=== PATIENT | female | born 1945 | race African-American/Black ===

== ENCOUNTER 2017-07-16 17:40 | Inpatient (IN) | payer MEDICARE ==
--- NOTE | 2017-07-16 18:22 | RAD ---
PORTABLE CHEST: Date: 07-16-17 Provided Clinical History: Weakness. FINDINGS: Comparison with 01-24-17. Cardiac and mediastinal silhouette is within normal limits. Lungs appear amina ar. No pleural fluid or pneumothorax apparent. IMPRESSION: No evidence for an acute cardiopulmonary process. POS: [facility]
[2017-07-16 18:49] LABS: #Eosinphils 0.2 thou/uL (0.0-0.7); #Lymphocytes 1.5 thou/uL (1.20-3.40); #Monocytes 0.9 thou/uL (0.11-0.59); #Neutrophils 10.7 thou/uL (1.40-6.50); %Basophils 0.3 % (0.0-1.0); %Eosinophils 1.5 % (0.0-10.0); %Lymphocytes 11.5 % (21.0-51.0); %Monocytes 6.8 % (0.0-10.0); %Neutrophils 79.9 % (42.0-75.0); Hemoglobin 11.1 g/dL (12.0-16.0); Mean Corpuscular Hemoglobin 27.9 pg (27.0-31.0); Mean Corpuscular Volume 89.8 fl (81.0-99.0); Mean Platelet Volume 7.3 fL (7.4-10.4); Platelet Count 318 thou/uL (130-400); RBC Distribution Width 14.7 % (11.5-14.5); White Blood Cell (WBC) Count 13.4 thou/uL (4.8-10.8)
[2017-07-16 19:08] LABS: ALT (SGPT) 22 U/L (8-55); AST (SGOT) 36 U/L (5-34); Albumin 3.4 g/dL (3.4-4.8); Alkaline Phosphatase 98 U/L (40-150); Anion Gap 20 mmol/L (10-20); BUN (Urea Nitrogen) 68 mg/dL (9.8-20.1); Bilirubin, Total 0.6 mg/dL (0.2-1.2); CK (CPK) 690 U/L (29-168); Calc. Creatinine Clearance 0 mL/min (70-130); Calcium 10.1 mg/dL (7.8-10.44); Carbon Dioxide 15 mmol/L (23-31); Chloride 105 mmol/L (98-107); Estimated GFR-MDRD 26; Globulin 5.3 g/dL (2.4-3.5); Glucose 102 mg/dL (80-115); Lipase 21 U/L (8-78); Potassium 4.4 mmol/L (3.5-5.1); Protein, Total 8.7 g/dL (6.0-8.3); Sodium 136 mmol/L (136-145)
[2017-07-16 19:44] LABS: Troponin I 0.017 ng/mL (< 0.028)
[2017-07-16 19:49] LABS: CKMB 15.5 ng/mL (0-6.6)
[2017-07-16] MEDS ORDERED: Piperacillin/Tazobactam 4.5 GM in Sodium Chloride 0.9% 100 ML IVPB SCH ×2 (21:00→23:15)
[2017-07-16 21:09] LABS: Bilirubin Negative (Negative); Blood, Urine Small (Negative); Clarity CLOUDY (Clear); Glucose, Urine (Dipstick) Negative (Negative); Leukocyte Large (Negative); Nitrite Positive (Negative); Protein, Urine (Dipstick) Negative (Neg-Trace); Specific Gravity, Urine 1.016 (1.002-1.036)
[2017-07-16 21:11] LABS: Bacteria/HPF 1+ HPF (None Seen); Hyaline Casts/LPF 4-6 HYALINE CAST LPF (0-3 Hyaline); Pathc Cast-AUWi Flag 1.62 (0-2.49); RBC/HPF 0-3 HPF (0-3)
[2017-07-16] MEDS ORDERED: Acetaminophen 325 MG TAB PO PRN (22:25)
--- NOTE | 2017-07-17 01:59 | HP ---
DATE OF ADMISSION: 07/16/2017 PRIMARY CARE PHYSICIAN: Dr. Monzon. CHIEF COMPLAINT: Weakness. HISTORY OF PRESENT ILLNESS: This is a 71-year-old female who was brought in by her family. They rep ort that over the last two weeks, the patient has gradually become weaker. Two weeks ago, she was ab le to walk with her four prong cane. Now, she is unable to walk. She reports extreme pain in her kn ees as well with swelling in the left lower extremity that is chronic. They denied chest pain, diaph oresis, or shortness of breath. She also reports decreased appetite. REVIEW OF SYSTEMS: The following complete review of systems was negative, unless otherwise mentioned in the HPI or below: Constitutional: Weight loss or gain, sense of well-being, ability to conduct usual activities, exercise tolerance. Skin/Breast: Rash, itching, changes in hair growth or loss, n ail changes, breast lumps, tenderness, swelling, nipple discharge. Eyes: Vision, double vision, tea ring, blind spots, pain. ENT/Mouth: Headaches (location, time of onset, duration, precipitating fac tors), vertigo, lightheadedness, injury. Vision, double vision, tearing, blind spots, pain, nose ble eding, colds, obstruction, discharge, dental difficulties, gingival bleeding, dentures, neck stiffnes s, pain, tenderness, masses in thyroid or other areas. Cardiovascular: Precordial pain, substernal distress, palpitations, syncope, dyspnea on exertion, orthopnea, nocturnal paroxysmal dyspnea, edema, cyanosis, hypertension, heart murmurs, varicosities, phlebitis, claudication. Respiratory: Pain, s hortness of breath, wheezing, stridor, cough, hemoptysis, fever or night sweats. Gastrointestinal: Poor appetite, dysphagia, indigestion, abdominal pain, heartburn, eructation, nausea, vomiting, hemat emesis, jaundice, constipation, or diarrhea, abnormal stools (kelsea-colored, tarry, bloody, greasy, fo ul smelling), flatulence, hemorrhoids, recent changes in bowel habits. Genitourinary: Urgency, freq uency, dysuria, nocturia, hematuria, polyuria, oliguria, unusual (or change in) color of urine, stone s, hesitancy, change in size of stream, dribbling, acute retention or incontinence, libido, potency. Musculoskeletal: Pain, swelling, redness or heat of muscles or joints, limitation of motion, muscul ar weakness, atrophy, cramps. Neurologic/Psychiatric: Convulsions, paralyzes, tremor, incoordinatio n, paresthesias, difficulties with memory of speech, sensory or motor disturbances, or muscular coord ination (ataxia, tremor), emotional problems, anxiety, depression, previous psychiatric care, unusual perceptions, hallucinations. Allergy/Immunologic: Skin rash, anemia, bleeding tendency, polydipsia , polyuria, intolerance to heat or cold. PAST MEDICAL HISTORY: Significant for type 2 diabetes, hypertension, congestive heart failure, gout, obesity. PAST SURGICAL HISTORY: Tubal ligation, left breast biopsy. PSYCHIATRIC HISTORY: No previous psychiatric history. SOCIAL HISTORY: Denies alcohol use or illicit drug use. No smoking. FAMILY HISTORY: Reviewed. Noncontributory to this case. HOME MEDICATIONS: 1. Lasix 20 mg b.i.d. 2. Allopurinol 100 mg t.i.d. 3. Ferrous sulfate 325 mg b.i.d. 4. Carvedilol 12.5 mg b.i.d. 5. Amlodipine 10 mg daily. 6. Fish oil tab 100 mg daily. ALLERGIES: No known drug allergies. PHYSICAL EXAMINATION: VITAL SIGNS: Vital statistics, rectal temperature of 95.2, blood pressure 138/60, pulse 86, respirat ions 16, satting 98% on room air. GENERAL: She appears lethargic, but she is oriented to person, place, and time. HEAD: Normocephalic, atraumatic. EYES: PERRL. Extraocular muscles intact. ENT: Nose exam normal. External mouth exam normal. Mucous membranes dry. NECK: Trachea midline, normal range of motion, supple. CHEST: Diminished effort, but no rales, no wheezes auscultated. CARDIOVASCULAR: Regular rate and rhythm. ABDOMEN: Morbidly obese, nontender, no rebound or guarding. EXTREMITIES: There is a large stage I ulcer to the left lower extremity, otherwise 3+ edema bilatera lly. Venous stasis changes. NEUROLOGIC: Once again, patient is lethargic, but appears to be alert and oriented x3. LABORATORY AND DIAGNOSTIC DATA: CBC shows a white count of 13.4, hemoglobin 11.1, hematocrit 35.9, p latelets 318,000. There are 80% neutrophils. Portable chest x-ray, there is no evidence for acute c ardiopulmonary disease. CMP shows sodium of 136, potassium 4.4, chloride 105, CO2 of 15, BUN 68, cre atinine 2.26, AST 36, ALT 22, albumin 3.4. CPK of 690, CK-MB 15.5, troponin 0.017, lipase 21. Urina lysis was yellow, cloudy, large amount of leukocytes, large amount of nitrites, 1+ bacteria with 4-6 squamous cells. ASSESSMENT AND PLAN: 1. Increased weakness. 2. Acute kidney injury. 3. Cellulitis. 4. Elevated creatine phosphokinase. 5. Possible viral syndrome. PLAN: The patient will be admitted to telemetry. The patient will be placed on IV fluoroquinolones to cover possible urinary tract infection. The patient may also have a viral syndrome. We will gent ly hydrate her and she appears to be somewhat volume depleted. We will do DVT prophylaxis with Loven ox, we will maintain an eye on the patient's creatinine to see if it increases more and if Lovenox wi ll become contraindicated.
[2017-07-17 04:46] LABS: #Eosinphils 0.3 thou/uL (0.0-0.7); #Lymphocytes 1.5 thou/uL (1.20-3.40); #Neutrophils 7.9 thou/uL (1.40-6.50); %Basophils 0.2 % (0.0-1.0); %Eosinophils 2.4 % (0.0-10.0); %Lymphocytes 14.3 % (21.0-51.0); %Monocytes 9.1 % (0.0-10.0); %Neutrophils 73.9 % (42.0-75.0); Hemoglobin 9.2 g/dL (12.0-16.0); Mean Corpuscular HGB CONC 31.2 g/dL (32.0-36.0); Mean Corpuscular Hemoglobin 28.4 pg (27.0-31.0); Mean Corpuscular Volume 91.2 fl (81.0-99.0); Mean Platelet Volume 7.2 fL (7.4-10.4); Platelet Count 285 thou/uL (130-400); RBC Distribution Width 14.5 % (11.5-14.5); Red Blood Cell (RBC) Count 3.22 mill/uL (4.20-5.40); White Blood Cell (WBC) Count 10.7 thou/uL (4.8-10.8)
[2017-07-17 04:51] LABS: Anion Gap 16 mmol/L (10-20); BUN (Urea Nitrogen) 64 mg/dL (9.8-20.1); Calc. Creatinine Clearance 0 mL/min (70-130); Calcium 9.3 mg/dL (7.8-10.44); Carbon Dioxide 19 mmol/L (23-31); Chloride 108 mmol/L (98-107); Estimated GFR-MDRD 28; Glucose 72 mg/dL (80-115); Potassium 3.7 mmol/L (3.5-5.1); Sodium 139 mmol/L (136-145)
[2017-07-17] MEDS ORDERED: Levofloxacin 500 mg/D5W 100 ml Premix Bag ONE (09:33)
--- NOTE | 2017-07-17 12:40 | PDOC.PN ---
- Subjective Encounter Start Date: 07/17/17 Encounter Start Time: 10:30 -: old records requested/rev Pt seen and examined, chart reviewed in its entirety, this is my first visit with this patient. No F/C since admit, no n/v, no acute events. - Objective MAR Reviewed: Yes Result Diagrams: 07/17/17 04:16 07/17/17 04:16 Radiology Reviewed by me: Yes EKG Reviewed by me: Yes Phys Exam - Physical Examination Constitutional: NAD HEENT: PERRLA, sclera anicteric, oral pharynx no lesions mucous membranes dry Neck: no nodes, no JVD, supple, full ROM Respiratory: no wheezing, no rhonchi, clear to auscultation bilateral Cardiovascular: RRR, no significant murmur Gastrointestinal: soft, non-tender, no distention, positive bowel sounds Musculoskeletal: pulses present, edema present Neurological: non-focal, moves all 4 limbs Lymphatic: no nodes Psychiatric: normal affect, A&O x 3 Skin: normal turgor Deviation from normal: L>R LE edema, circumferential venous ulcer present, covered with slough. -: no redness, no heat, no evidence of infection presently Dx/Plan (1) Venous insufficiency of both lower extremities Code(s): I87.2 - VENOUS INSUFFICIENCY (CHRONIC) (PERIPHERAL) Status: Acute Comment: BLE, with LLE venous ulcer, large. needs UNNA boot termite control representative and aggresive wound management. (2) Venous ulcer of left leg Code(s): I83.029 - VARICOSE VEINS OF LEFT LOWER EXTREMITY W ULCER OF UNSP SITE Status: Acute Comment: as above. no evidence currently of infection. needs compression and chronic wound care. unsure of arterial supply to leg presently. (3) UTI (urinary tract infection) Status: Acute Qualifiers: Urinary tract infection type: acute cystitis Hematuria presence: without hematuria Qualified Code(s): N30.00 - Acute cystitis without hematuria Comment: on levoflox. [facility], follow up on culture (4) Acute renal failure superimposed on stage 3 chronic kidney disease Code(s): N17.9 - ACUTE KIDNEY FAILURE, UNSPECIFIED; N18.3 - CHRONIC KIDNEY DISEASE, STAGE 3 (MODERATE) Status: Acute Qualifiers: Acute renal failure type: unspecified Qualified Code(s): N17.9 - Acute kidney failure, unspecified; N18.3 - Chronic kidney disease, stage 3 (moderate) ; N18.3 - Chronic kidney disease, stage 3 (moderate) Comment: Cr dwon to 2.12 today. CCM (5) Dehydration Code(s): E86.0 - DEHYDRATION Status: Acute (6) Weakness Code(s): R53.1 - WEAKNESS Status: Acute Comment: likely due to other comorbidities. PT/OT requested (7) CKD (chronic kidney disease), stage III Status: Chronic (8) Chronic diastolic (congestive) heart failure Code(s): I50.32 - CHRONIC DIASTOLIC (CONGESTIVE) HEART FAILURE Status: Chronic Comment: EF 50-55% (9) DM2 (diabetes mellitus, type 2) Status: Chronic Qualifiers: Diabetes mellitus complication status: with circulatory complication Diabetes mellitus complication detail: with other circulatory complications Diabetes mellitus detention insulin use: without detention use Qualified Code( s): E11.59 - Type 2 diabetes mellitus with other circulatory complications (10) Morbid obesity Code(s): E66.01 - MORBID (SEVERE) OBESITY DUE TO EXCESS CALORIES Status: Chronic - Plan cont current plan of care, continue antibiotics, PT/OT * .
[2017-07-17 17:56] VITALS: BMI 42.3
[2017-07-17] MEDS: Sodium Chloride 0.9% 1,000 ML IV SCH ×2 (19:18→21:01)
[2017-07-17] MEDS: Carvedilol 6.25 MG TAB PO SCH ×2 (19:19→21:01)
[2017-07-17] MEDS: Amlodipine 10 MG TAB PO SCH (19:19)
[2017-07-17] MEDS: Aspirin 325 mg Enteric Coated Tablet PO SCH (19:19)
[2017-07-18 05:51] LABS: #Eosinphils 0.3 thou/uL (0.0-0.7); #Lymphocytes 1.6 thou/uL (1.20-3.40); #Monocytes 0.8 thou/uL (0.11-0.59); #Neutrophils 6.9 thou/uL (1.40-6.50); %Basophils 0.3 % (0.0-1.0); %Eosinophils 2.9 % (0.0-10.0); %Monocytes 7.9 % (0.0-10.0); %Neutrophils 71.9 % (42.0-75.0); Hemoglobin 8.6 g/dL (12.0-16.0); Mean Corpuscular HGB CONC 30.1 g/dL (32.0-36.0); Mean Corpuscular Volume 93.1 fl (81.0-99.0); Platelet Count 277 thou/uL (130-400); RBC Distribution Width 14.7 % (11.5-14.5); Red Blood Cell (RBC) Count 3.06 mill/uL (4.20-5.40); White Blood Cell (WBC) Count 9.6 thou/uL (4.8-10.8)
[2017-07-18 06:22] LABS: Anion Gap 13 mmol/L (10-20); BUN (Urea Nitrogen) 51 mg/dL (9.8-20.1); Calc. Creatinine Clearance 55 mL/min (70-130); Calcium 8.7 mg/dL (7.8-10.44); Carbon Dioxide 16 mmol/L (23-31); Chloride 114 mmol/L (98-107); Estimated GFR-MDRD 34; Glucose 74 mg/dL (80-115); Magnesium 2.2 mg/dL (1.6-2.6); Potassium 4.3 mmol/L (3.5-5.1); Sodium 139 mmol/L (136-145)
[2017-07-18] MEDS: Aspirin 325 mg Enteric Coated Tablet PO SCH (08:16)
[2017-07-18] MEDS: Amlodipine 10 MG TAB PO SCH (08:16)
[2017-07-18] MEDS: Carvedilol 6.25 MG TAB PO SCH ×2 (08:17→17:34)
[2017-07-18] MEDS: Sodium Chloride 0.9% 1,000 ML IV SCH (13:06)
--- NOTE | 2017-07-18 15:11 | PDOC.PN ---
- Subjective Encounter Start Date: 07/18/17 Encounter Start Time: 10:30 PT more awake today. Feeling better Denies f/C, no n/V/D/C, no pain to legs, no abd pain, no CP or SOB 10 point ros performed and neg for all systems except as per HPI - Objective MAR Reviewed: Yes Vital Signs & Weight: Vital Signs (12 hours) Temp Pulse Resp BP BP Pulse Ox 07/18/17 12:20 99.1 F 76 18 115/66 98 07/18/17 08:17 129/60 07/18/17 08:16 78 129/60 07/18/17 08:00 99.3 F 78 16 07/18/17 07:54 99.3 F 78 16 129/60 96 07/18/17 04:00 99.2 F 86 18 113/62 98 Weight Weight 262 lb I&O: 07/17/17 07/18/17 07/19/17 06:59 06:59 06:59 Intake Total 880 Balance 880 Result Diagrams: 07/18/17 05:26 07/18/17 05:26 Additional Labs: Accuchecks 07/18/17 07/18/17 07/17/17 12:07 04:21 20:51 POC Glucose 118 H 114 H 116 H Phys Exam - Physical Examination Constitutional: NAD HEENT: PERRLA, moist MMs, sclera anicteric, oral pharynx no lesions Neck: no nodes, no JVD, supple, full ROM Respiratory: no wheezing, no rales, no rhonchi, clear to auscultation bilateral Cardiovascular: RRR, no significant murmur, no rub Gastrointestinal: soft, non-tender, no distention, positive bowel sounds Musculoskeletal: edema present Neurological: non-focal, normal sensation, moves all 4 limbs globally weak Lymphatic: no nodes Psychiatric: normal affect, A&O x 3 Deviation from normal: large LLE circumferential venous ulcer stable Dx/Plan (1) Venous insufficiency of both lower extremities Code(s): I87.2 - VENOUS INSUFFICIENCY (CHRONIC) (PERIPHERAL) Status: Acute Comment: BLE, with LLE venous ulcer, large. needs UNNA boot custodial and aggresive wound management. (2) Venous ulcer of left leg Code(s): I83.029 - VARICOSE VEINS OF LEFT LOWER EXTREMITY W ULCER OF UNSP SITE Status: Acute Comment: as above. no evidence currently of infection. needs compression and chronic wound care. unsure of arterial supply to leg presently. (3) UTI (urinary tract infection) Status: Acute Qualifiers: Urinary tract infection type: acute cystitis Hematuria presence: without hematuria Qualified Code(s): N30.00 - Acute cystitis without hematuria Comment: on levoflox. Cx with E coli, vicente susceptible. Labs normal, more awake. (4) Acute renal failure superimposed on stage 3 chronic kidney disease Code(s): N17.9 - ACUTE KIDNEY FAILURE, UNSPECIFIED; N18.3 - CHRONIC KIDNEY DISEASE, STAGE 3 (MODERATE) Status: Acute Qualifiers: Acute renal failure type: unspecified Qualified Code(s): N17.9 - Acute kidney failure, unspecified; N18.3 - Chronic kidney disease, stage 3 (moderate) ; N18.3 - Chronic kidney disease, stage 3 (moderate) Comment: Cr down from 2.12 to 1.79 today. CCM (5) Dehydration Code(s): E86.0 - DEHYDRATION Status: Acute Comment: Hgb form 11.1 to 9.2 to 8.6. No signs of blood loss. Follow (6) Weakness Code(s): R53.1 - WEAKNESS Status: Acute Comment: likely due to other comorbidities. PT/OT requested (7) CKD (chronic kidney disease), stage III Status: Chronic (8) Chronic diastolic (congestive) heart failure Code(s): I50.32 - CHRONIC DIASTOLIC (CONGESTIVE) HEART FAILURE Status: Chronic Comment: EF 50-55% (9) DM2 (diabetes mellitus, type 2) Status: Chronic Qualifiers: Diabetes mellitus complication status: with circulatory complication Diabetes mellitus complication detail: with other circulatory complications Diabetes mellitus buttermaker continuous churn insulin use: without custodial use Qualified Code( s): E11.59 - Type 2 diabetes mellitus with other circulatory complications (10) Morbid obesity Code(s): E66.01 - MORBID (SEVERE) OBESITY DUE TO EXCESS CALORIES Status: Chronic - Plan * .
[2017-07-18] MEDS: Allopurinol 100 MG TAB PO SCH (20:21)
[2017-07-19 05:33] LABS: #Eosinphils 0.2 thou/uL (0.0-0.7); #Lymphocytes 1.9 thou/uL (1.20-3.40); #Monocytes 0.7 thou/uL (0.11-0.59); #Neutrophils 4.5 thou/uL (1.40-6.50); %Basophils 0.5 % (0.0-1.0); %Eosinophils 2.9 % (0.0-10.0); %Lymphocytes 26.2 % (21.0-51.0); %Monocytes 9.5 % (0.0-10.0); %Neutrophils 60.9 % (42.0-75.0); Hemoglobin 8.3 g/dL (12.0-16.0); Mean Corpuscular Hemoglobin 28.4 pg (27.0-31.0); Mean Corpuscular Volume 91.7 fl (81.0-99.0); Mean Platelet Volume 6.8 fL (7.4-10.4); Platelet Count 256 thou/uL (130-400); RBC Distribution Width 14.6 % (11.5-14.5); Red Blood Cell (RBC) Count 2.91 mill/uL (4.20-5.40); White Blood Cell (WBC) Count 7.3 thou/uL (4.8-10.8)
[2017-07-19 05:57] LABS: Anion Gap 9 mmol/L (10-20); BUN (Urea Nitrogen) 43 mg/dL (9.8-20.1); Calc. Creatinine Clearance 56 mL/min (70-130); Calcium 8.5 mg/dL (7.8-10.44); Carbon Dioxide 22 mmol/L (23-31); Chloride 112 mmol/L (98-107); Estimated GFR-MDRD 35; Glucose 87 mg/dL (80-115); Magnesium 1.9 mg/dL (1.6-2.6); Potassium 4.2 mmol/L (3.5-5.1); Sodium 139 mmol/L (136-145)
[2017-07-19] MEDS: Ferrous Sulfate 325 MG TAB PO SCH (08:02)
[2017-07-19] MEDS: Allopurinol 100 MG TAB PO SCH ×3 (08:02→20:22)
[2017-07-19] MEDS: Carvedilol 6.25 MG TAB PO SCH ×2 (08:03→16:29)
[2017-07-19] MEDS: Aspirin 325 mg Enteric Coated Tablet PO SCH (08:04)
[2017-07-19] MEDS: Amlodipine 10 MG TAB PO SCH (08:04)
[2017-07-19] MEDS: Sodium Chloride 0.9% 1,000 ML IV SCH (09:49)
--- NOTE | 2017-07-19 12:18 | PDOC.PN ---
- Subjective Encounter Start Date: 07/19/17 Encounter Start Time: 11:25 Pt awake and alert, lying in bed, no pain, no F/c,no N/V/d/c, no CP or sOB, no acute events. Wound care to see pt again soon. Pt agreeable to SNF on discharge, awaiting Pt/OT evals. 10 point ROS performed and neg for all systems except as per HPI. Tolerating Abx, transition to po today - Objective MAR Reviewed: Yes Vital Signs & Weight: Vital Signs (12 hours) Temp Pulse Resp BP BP Pulse Ox 07/19/17 09:04 98.9 F 79 20 119/74 98 07/19/17 08:49 98.9 F 79 20 119/74 98 07/19/17 08:00 98.9 F 79 20 07/19/17 04:00 98.5 F 76 16 120/68 95 Weight Admit Weight 262 lb Weight 262 lb I&O: 07/18/17 07/19/17 07/20/17 06:59 06:59 06:59 Intake Total 880 1810 Balance 880 1810 Result Diagrams: 07/19/17 05:11 07/19/17 05:11 Additional Labs: Accuchecks 07/19/17 07/18/17 07/18/17 05:06 20:56 16:24 POC Glucose 93 156 H 114 H 07/18/17 12:07 POC Glucose 118 H Phys Exam - Physical Examination HEENT: PERRLA, moist MMs, sclera anicteric, oral pharynx no lesions Neck: no nodes, no JVD, supple, full ROM Respiratory: no wheezing, no rales, no rhonchi, clear to auscultation bilateral Cardiovascular: RRR, no significant murmur, no rub Gastrointestinal: soft, non-tender, no distention, positive bowel sounds Musculoskeletal: pulses present, edema present improved edena bilaterally Neurological: non-focal, normal sensation, moves all 4 limbs Lymphatic: no nodes Psychiatric: normal affect, A&O x 3 Skin: no rash, normal turgor, cap refill <2 seconds Deviation from normal: wounds stable Dx/Plan (1) Venous insufficiency of both lower extremities Code(s): I87.2 - VENOUS INSUFFICIENCY (CHRONIC) (PERIPHERAL) Status: Acute Comment: BLE, with LLE venous ulcer, large. needs UNNA boot tax processor and aggresive wound management. (2) Venous ulcer of left leg Code(s): I83.029 - VARICOSE VEINS OF LEFT LOWER EXTREMITY W ULCER OF UNSP SITE Status: Acute Comment: as above. no evidence currently of infection. needs compression and chronic wound care. unsure of arterial supply to leg presently. (3) UTI (urinary tract infection) Status: Acute Qualifiers: Urinary tract infection type: acute cystitis Hematuria presence: without hematuria Qualified Code(s): N30.00 - Acute cystitis without hematuria Comment: on levoflox. Cx with E coli, vicente susceptible. Labs normal, more awake. (4) Acute renal failure superimposed on stage 3 chronic kidney disease Code(s): N17.9 - ACUTE KIDNEY FAILURE, UNSPECIFIED; N18.3 - CHRONIC KIDNEY DISEASE, STAGE 3 (MODERATE) Status: Acute Qualifiers: Acute renal failure type: unspecified Qualified Code(s): N17.9 - Acute kidney failure, unspecified; N18.3 - Chronic kidney disease, stage 3 (moderate) ; N18.3 - Chronic kidney disease, stage 3 (moderate) Comment: Cr down from 2.12 to 1.79 today. CCM (5) Dehydration Code(s): E86.0 - DEHYDRATION Status: Acute Comment: Hgb form 11.1 to 9.2 to 8.6. No signs of blood loss. Follow (6) Weakness Code(s): R53.1 - WEAKNESS Status: Acute Comment: physical deconditioning. PT/OT requested. to SNF for wound care and PT/OT on discharge (7) CKD (chronic kidney disease), stage III Status: Chronic (8) Chronic diastolic (congestive) heart failure Code(s): I50.32 - CHRONIC DIASTOLIC (CONGESTIVE) HEART FAILURE Status: Chronic Comment: EF 50-55% (9) DM2 (diabetes mellitus, type 2) Status: Chronic Qualifiers: Diabetes mellitus complication status: with circulatory complication Diabetes mellitus complication detail: with other circulatory complications Diabetes mellitus jail insulin use: without tax processor use Qualified Code( s): E11.59 - Type 2 diabetes mellitus with other circulatory complications (10) Morbid obesity Code(s): E66.01 - MORBID (SEVERE) OBESITY DUE TO EXCESS CALORIES Status: Chronic - Plan cont current plan of care, continue antibiotics, PT/OT, social studies department chair * . anticipate discharge tomorrow
[2017-07-19] MEDS: Ciprofloxacin 500 MG TAB PO SCH (20:23)
[2017-07-20 05:47] LABS: #Basophils 0.1 thou/uL (0.0-0.2); #Eosinphils 0.3 thou/uL (0.0-0.7); #Lymphocytes 1.8 thou/uL (1.20-3.40); #Monocytes 0.6 thou/uL (0.11-0.59); #Neutrophils 4.4 thou/uL (1.40-6.50); %Basophils 0.7 % (0.0-1.0); %Eosinophils 4.6 % (0.0-10.0); %Lymphocytes 25.3 % (21.0-51.0); %Monocytes 7.8 % (0.0-10.0); %Neutrophils 61.7 % (42.0-75.0); Hemoglobin 8.5 g/dL (12.0-16.0); Mean Corpuscular HGB CONC 30.6 g/dL (32.0-36.0); Mean Corpuscular Hemoglobin 28.2 pg (27.0-31.0); Mean Corpuscular Volume 92.2 fl (81.0-99.0); Mean Platelet Volume 6.8 fL (7.4-10.4); Platelet Count 251 thou/uL (130-400); RBC Distribution Width 14.6 % (11.5-14.5); Red Blood Cell (RBC) Count 3.01 mill/uL (4.20-5.40); White Blood Cell (WBC) Count 7.2 thou/uL (4.8-10.8)
[2017-07-20 06:29] LABS: Anion Gap 12 mmol/L (10-20); BUN (Urea Nitrogen) 33 mg/dL (9.8-20.1); Calc. Creatinine Clearance 67 mL/min (70-130); Calcium 8.7 mg/dL (7.8-10.44); Carbon Dioxide 18 mmol/L (23-31); Chloride 114 mmol/L (98-107); Estimated GFR-MDRD 43; Glucose 85 mg/dL (80-115); Magnesium 1.8 mg/dL (1.6-2.6); Potassium 4.4 mmol/L (3.5-5.1); Sodium 140 mmol/L (136-145)
[2017-07-20] MEDS: Sodium Chloride 0.9% 1,000 ML IV SCH (07:59)
[2017-07-20] MEDS: Carvedilol 6.25 MG TAB PO SCH (08:00)
[2017-07-20] MEDS: Ciprofloxacin 500 MG TAB PO SCH (08:00)
[2017-07-20] MEDS: Aspirin 325 mg Enteric Coated Tablet PO SCH (08:00)
[2017-07-20] MEDS: Ferrous Sulfate 325 MG TAB PO SCH (08:00)
[2017-07-20] MEDS: Allopurinol 100 MG TAB PO SCH (08:00)
[2017-07-20] MEDS: Amlodipine 10 MG TAB PO SCH (08:00)
[2017-07-20 08:40] VITALS: BP 110/66; TEMP 98.7
--- NOTE | 2017-07-20 14:49 | DIS ---
DATE OF ADMISSION: 07/16/2017 DATE OF DISCHARGE: 07/20/2017 PRIMARY CARE PHYSICIAN: Dr. Kendra Monzon DISCHARGE DIAGNOSES: 1. Escherichia coli urinary tract infection. 2. Sepsis. 3. Chronic diastolic congestive heart failure without acute exacerbation. 4. Chronic kidney disease stage 3. 5. Dehydration. 6. Acute kidney injury on top of chronic kidney disease stage 3. 7. Diabetes mellitus type 2. 8. Severe obesity. 9. Chronic venous insufficiency. 10. Venous ulcer of her left lower leg. CONSULTATIONS: None. PROCEDURES: None. HISTORY OF PRESENT ILLNESS: Ms. Olivas is a 71-year-old severely obese female with the above history who presented in the emergency department for evaluation on 07/16/2017 for feeling weak. She was seen and evaluated in the ER. She was found to have a white count of 13.4 with 80% n eutrophils. She had a negative chest x-ray, creatinine above her baseline 2.26, rectal temperature 9 5.2 and was satting 98% on room air. We were called for initially cellulitis of the lower extremity. HOSPITAL COURSE: The patient was seen and examined by Dr. Sebastien Luevano. She was started on broad sp ectrum antibiotics for possible cellulitis and for UTI. Overnight to 07/16/2017 to 07/17/2017, she w as doing better. She was somnolent, but arousable. Evaluation of her lower extremity did not reveal any increased warmth, drainage or tenderness and it looked uninfected. Urine was growing out a gram negative le later found to be E. coli, she was continued on Rocephin. She was given IV fluids. By 07/18/2017, she was awake, alert, and feeling back to her baseline. E. coli was vicente susceptible s o she was narrowed to oral Cipro. White blood cell count had normalized and creatinine continued to normalized. On 07/19/2017, her creatinine had improved down to 1.74. She was doing better exercise with physical therapy, but was still too weak to really get up and ambulate. She was getting wound care on her lo wer extremity from Wound Care team. Today, her creatinine is back down to baseline 1.47. She is afebrile. Labs are normal. Strength is improving. She was approved to go to rehabilitation at [facility] and she was transferred there in stable condition. PHYSICAL EXAMINATION: The patient was seen and examined on the day of discharge. Discharge plan and disposition were discussed with the patient face to face at the bedside. DISCHARGE MEDICATIONS: 1. Cipro 500 mg p.o. b.i.d. for 4 more days. 2. Tylenol 650 mg p.o. q.4h. p.r.n. pain. 3. Allopurinol 100 mg p.o. t.i.d. 4. Amlodipine 10 mg daily. 5. Aspirin 325 mg daily. 6. Coreg 12.5 mg p.o. b.i.d. 7. Iron sulfate 325 mg daily. 8. Fish oil 1000 mg b.i.d. 9. Lasix 20 mg b.i.d. FOLLOWUP APPOINTMENTS: Dr. Monzon in 1-2 weeks. DISCHARGE CONDITION: Good. DISPOSITION: To be discharged to [facility]. DISCHARGE ACTIVITIES: As tolerated. PT, OT, and Wound Care has been ordered at the intermediate facility.
--- NOTE | 2017-07-26 15:59 | PQF ---
SENTHIL GARZON ERIC [id number] [facility] [id number] CLINICAL DOCUMENTATION CLARIFICATION FORM: POST DISCHARGE SENTHIL GARZON [id number] [facility] PLEASE DOCUMENT YOUR RESPONSE BELOW PLEASE FAX RESPONSE BACK TO [phone] YOUR INPUT IS NEEDED TO CORRECTLY CODE A DIAGNOSIS FOR YOUR PATIENT. DATE: 07/26/17 ATTN: DR GOTTI Please exercise your independent, professional judgment in responding to the clarification form. Clinical indicators are provided on the bottom of this form for your review Please check appropriate box(s) to clarify if the following diagnosis has been ruled in our ruled out: Sepsis (CDI/Coding list diagnosis here) [x ] Ruled in diagnosis [ ] Continue to treat [ x ] Resolved [ ] Ruled out diagnosis [ ] Cannot rule out diagnosis [ ] Other diagnosis [ ] Unable to determine In addition, please specify: Present on Admission (POA): [ x ] Yes [ ] No [ ] Unable to determine For continuity of documentation, please document condition throughout progress notes and discharge summary. Thank You. Sepsis was documented in the ER report and on discharge summary, but no mention of Sepsis in the progress notes. (This form is maintained as a part of the permanent medical record) 2014 [employer] All Rights Reserved Nimo [email or web address] [phone] THIS WAS LISTED IN THE DISCHARGE DIAGNOSES ON THE D/D SUMMARY 07/20/2017 [facility]
--- NOTE | 2017-07-26 16:03 | PQF ---
SENTHIL GARZON SARAH [id number] [facility] [id number] CLINICAL DOCUMENTATION CLARIFICATION FORM: POST DISCHARGE DATE: 07/26/17 ATTN: DR GOTTI Please exercise your independent, professional judgment in responding to the clarification form. Clinical indicators are provided on the bottom of this form for your review WOUND CARE STATES PRESSURE ULCER STAGE III RIGHT THIGH, STAGE III PRESSURE ULCER TO SACRUM Please check appropriate box(s): _x I (concur) with the Wound Care findings as stated below. [ ] Pressure Ulcer: (Stage I: Erythema; Stage II: Partial thickness; Stage III : Full thickness; Stage IV: Necrosis to muscle/bone) [ ] Location: POA: [ ] Yes [ ] No [ ] Unable to determine Stage (I to IV): (Left Right Bilateral N/A ) [ ] Location: POA: [ ] Yes [ ] No [ ] Unable to determine Stage (I to IV): (Left Right Bilateral N/A ) [ ] Location: POA: [ ] Yes [ ] No [ ] Unable to determine Stage (I to IV): (Left Right Bilateral N/A ) [ ] Gangrene present [ ] Yes [ ] ischemic gangrene [ ] gas gangrene [ x ] No [ ] No pressure ulcer diagnosis [ ] Deep tissue injury [ ] Other diagnosis [ ] Unable to determine In addition, please specify: Present on Admission (POA): [ x ] Yes [ ] No [ ] Unable to determine For continuity of documentation, please document condition throughout progress notes and discharge summary. Thank You. CLINICAL INDICATORS - SIGNS / SYMPTOMS / LABS Pre-ulcer skin changes limited to persistent focal edema (Stage 1) Abrasion, blister, partial thickness skin loss involving epidermis and/or dermis (Stage 2) Full thickness skin loss involving damage or necrosis of SQ tissue. (Stage 3) Necrosis of soft tissue through to underlying muscle, tendon, or bone. (Stage 4) Purple or maroon discolored skin or blood filled blister MTDD
== END 2017-07-20 13:32 | DRG 871 ==
LOC: ERS 17:40 → ERHOLD 21:00 → T4-B 07-17 17:30
PROVIDERS: ADMIT Internal Medicine Addiction Medicine; ATTEND Internal Medicine Addiction Medicine
DX: A41.9 Sepsis, unspecified organism (principal); L89.893 Pressure ulcer of other site, stage 3; N17.9 Acute kidney failure, unspecified; L89.152 Pressure ulcer of sacral region, stage 2; I13.0 Hypertensive heart and chronic kidney disease with heart failure and stage 1 through stage 4 chronic kidney disease, or unspecified chronic kidney disease; E11.22 Type 2 diabetes mellitus with diabetic chronic kidney disease; I50.32 Chronic diastolic (congestive) heart failure; L03.115 Cellulitis of right lower limb; Z68.41 Body mass index [BMI] 40.0-44.9, adult; L03.116 Cellulitis of left lower limb; I83.228 Varicose veins of left lower extremity with both ulcer of other part of lower extremity and inflammation; L97.829 Non-pressure chronic ulcer of other part of left lower leg with unspecified severity; N30.00 Acute cystitis without hematuria; E66.01 Morbid (severe) obesity due to excess calories; M10.9 Gout, unspecified; B96.20 Unspecified Escherichia coli [E. coli] as the cause of diseases classified elsewhere; N18.3 Chronic kidney disease, stage 3 (moderate); E86.0 Dehydration; T68.XXXA Hypothermia, initial encounter
CPT/HCPCS: 36415; 36416; 71010; 80048; 80053; 81003; 81015; 82553; 83605; 83690; 83735; 84484; 85025; 87040; 87077; 87086; 87186; 93005; 94760; 96361; 96365; 96367; A4216; A4353; G8978-GP-CM; G8979-GP-CK; J1956; J2543; J3370; J7050

== ENCOUNTER 2017-08-15 10:26 | Outpatient (CLI) | payer MEDICARE ==
[2017-08-15] MEDS ORDERED: Lidocaine 2% Jelly 5 ML TUBE ONE (17:10)
--- NOTE | 2017-08-15 19:42 | HP ---
DATE OF SERVICE: 08/15/2017 HISTORY OF PRESENT ILLNESS: Ms. Cinthya Olivas is a very pleasant 71-year-old, accompanied by her son , who [facility] for evaluation of multiple venous ulcerations of the right lower l eg. The patient also has a pressure ulceration of the right buttock and a pressure ulceration of the coccygeal region. The patient is presently receiving dressing changes with the assistance of [facility]. The patient states that all of her wounds are improving with the dressing changes she is rece iving by [facility]. The patient was recently discharged from [facility]. The patient states that for her wounds she was also receiving dressing changes at [facility] prior to her discharge to home . PAST MEDICAL HISTORY: 1. Diabetes mellitus. 2. Hypertension. 3. Anemia. 4. Chronic kidney disease stage 3. 5. Gout. 6. Gastroesophageal reflux disease. 7. History of rhabdomyolysis. 8. Diastolic congestive heart failure. 9. Peripheral vascular disease. PAST SURGICAL HISTORY: 1. Right breast biopsy. 2. Bilateral tubal ligation. 3. Bilateral cataract surgery. MEDICATIONS: 1. Allopurinol. 2. Amlodipine. 3. Aspirin. 4. Coreg. 5. Iron. 6. Fish oil. 7. Lasix. 8. Multivitamin. ALLERGIES: No known diagnosed allergies. SOCIAL HISTORY: Negative for tobacco or ETOH use. FAMILY HISTORY: Significant for diabetes mellitus. The patient states that her sister, aunt, and un amina were diagnosed with diabetes mellitus. Family history is also significant for coronary artery di sease. The patient states that 2 brothers were diagnosed with coronary artery disease. PHYSICAL EXAMINATION: VITAL SIGNS: Temperature 97.4, pulse 80, respirations 19, blood pressure 137/65. Accu-Chek 93. GENERAL: A 71-year-old female lying on stretcher in examination room, in no acute distress. HEENT: Normocephalic, atraumatic. NECK: No nuchal rigidity. CHEST: Clear to auscultation. CARDIAC: Regular rate and rhythm. ABDOMEN: Soft. EXTREMITIES: Multiple venous ulcerations of the right lower leg are present. These ulcerations are granulating. No purulent drainage is associated with any of the wounds. No erythema of the skin earline rounding any of the wounds is present. No maceration of the skin of the periwound of any of the woun ds is noted. A dorsalis pedis pulse is easily palpable on the right. Edema of the right lower leg i s present on exam today. BACK: A pressure ulceration of the right buttock is present. A pressure ulceration of the coccygeal region is also present. Granulation tissue is present within the margins of each wound. Nonviable tissue present within the margins of each wound was debrided with an excisional full-thickness debrid ement with the use of a curet. No purulent drainage is associated with either wound. No erythema of the skin surrounding either wound is present. No maceration of the skin of the periwound of either wound is noted. ASSESSMENT AND PLAN: 1. Chronic venous hypertension with ulcers. Silvercel, Webril, and 3M Coban two-layer compression s ystem will be applied to the ulcerations of the right lower leg today. Orders will be transmitted to Home Health for dressing changes at the present frequency after cleansing and irrigation. 2. Pressure ulcerations of right buttock and coccygeal region. Silvercel and Mepilex border will be applied to each ulceration today. Orders will also be transmitted to Home Health for dressing martinez es at the present frequency after cleansing and irrigation. I will see Ms. Olivas again in two weeks . 3. Diabetes mellitus. The patient's Accu-Chek in clinic today is 93. The patient has been told vinay t for optimal wound healing, her blood glucoses should remain below 150. 4. Hypertension. 5. Anemia. 6. Chronic kidney disease stage 3. 7. Gout. 8. Gastroesophageal reflux disease. 9. History of rhabdomyolysis. 10. Diastolic congestive heart failure. 11. Peripheral vascular disease.
== END 2017-08-15 10:27 | disposition home or self-care (01) ==
LOC: WCC 10:26
PROVIDERS: ATTEND Family Medicine
DX: S81.801D Unspecified open wound, right lower leg, subsequent encounter (principal); S31.000D Unspecified open wound of lower back and pelvis without penetration into retroperitoneum, subsequent encounter
CPT/HCPCS: 11042; 82962; 97139; G0463; 36416; 99204

== ENCOUNTER 2017-08-26 10:35 | Observation (INO) | payer MEDICARE ==
[2017-08-26 12:56] LABS: #Basophils 0.1 thou/uL (0.0-0.2); #Eosinphils 0.3 thou/uL (0.0-0.7); #Lymphocytes 1.7 thou/uL (1.20-3.40); #Monocytes 0.7 thou/uL (0.11-0.59); #Neutrophils 5.6 thou/uL (1.40-6.50); %Basophils 0.9 % (0.0-1.0); %Eosinophils 3.7 % (0.0-10.0); %Lymphocytes 20.1 % (21.0-51.0); %Monocytes 8.5 % (0.0-10.0); %Neutrophils 66.9 % (42.0-75.0); Hemoglobin 10.7 g/dL (12.0-16.0); Mean Corpuscular HGB CONC 31.7 g/dL (32.0-36.0); Mean Corpuscular Hemoglobin 28.7 pg (27.0-31.0); Mean Corpuscular Volume 90.3 fl (81.0-99.0); Mean Platelet Volume 7.9 fL (7.4-10.4); Platelet Count 221 thou/uL (130-400); RBC Distribution Width 15.1 % (11.5-14.5); Red Blood Cell (RBC) Count 3.73 mill/uL (4.20-5.40); White Blood Cell (WBC) Count 8.3 thou/uL (4.8-10.8)
[2017-08-26 13:17] LABS: ALT (SGPT) 14 U/L (8-55); AST (SGOT) 33 U/L (5-34); Albumin 3.9 g/dL (3.4-4.8); Alkaline Phosphatase 85 U/L (40-150); Anion Gap 17 mmol/L (10-20); BUN (Urea Nitrogen) 28 mg/dL (9.8-20.1); Bilirubin, Total 0.5 mg/dL (0.2-1.2); Calc. Creatinine Clearance 0 mL/min (70-130); Calcium 9.6 mg/dL (7.8-10.44); Carbon Dioxide 19 mmol/L (23-31); Chloride 111 mmol/L (98-107); Estimated GFR-MDRD 36; Globulin 4.3 g/dL (2.4-3.5); Glucose 95 mg/dL (80-115); Potassium 4.7 mmol/L (3.5-5.1); Protein, Total 8.2 g/dL (6.0-8.3); Sodium 142 mmol/L (136-145)
[2017-08-26 13:46] LABS: CKMB 5.6 ng/mL (0-6.6); Troponin I 0.023 ng/mL (< 0.028)
[2017-08-26 15:22] LABS: Bilirubin Negative (Negative); Blood, Urine Trace (Negative); Clarity CLEAR (Clear); Glucose, Urine (Dipstick) Negative (Negative); Leukocyte Negative (Negative); Nitrite Negative (Negative); Protein, Urine (Dipstick) Trace mg/dL (Neg-Trace); Urobilinogen 0.2 mg/dL (0.2-1.0)
[2017-08-26 15:23] LABS: Bacteria/HPF None Seen HPF (None Seen); Hyaline Casts/LPF 0-3 HYALINE CAST LPF (0-3 Hyaline); Pathc Cast-AUWi Flag 0.54 (0-2.49); RBC/HPF 0-3 HPF (0-3); Squamous Epithelial 0-3 HPF (0-3); WBC/HPF None Seen HPF (0-3)
[2017-08-26] MEDS ORDERED: Acetaminophen 325 MG TAB PO PRN (17:26)
--- NOTE | 2017-08-26 19:11 | HP ---
DATE OF ADMISSION: 08/26/2017 ADMITTING PHYSICIAN: Bassem Crowe MD CHIEF COMPLAINT: Weakness, dizziness, left lower extremity wound. HISTORY OF PRESENT ILLNESS: The patient is well known to our service. She presents from a nursing h ome complaining of increased weakness and inability to perform ADLs. The patient was actually discha rged from a skilled nursing and basically is unable to care for herself in her private residence. She w as in the skilled nursing for approximately 20 days undergoing PT/OT. When she was sent home, she was u nable to stand or ambulate and did not have help at home. [facility] has been consulted, but the pa anel is lethargic and will be reassessed by [facility] for transfer tomorrow. Of note, the patient does have chronic ulcerations of the left lower extremity that has been treated by wound care and is healing properly. She denies chest pain, shortness of breath, falls, fevers, chills, abdominal pain , diarrhea, constipation. She is very lethargic upon interview. REVIEW OF SYSTEMS: The following complete review of systems was negative, unless otherwise mentioned in the HPI or below: Constitutional: Weight loss or gain, sense of well-being, ability to conduct usual activities, exerc ise tolerance. Skin/Breast: Rash, itching, changes in hair growth or loss, nail changes, breast lumps, tenderness, swelling, nipple discharge. Eyes: Vision, double vision, tearing, blind spots, pain. ENT/Mouth: Headaches (location, time of onset, duration, precipitating factors), vertigo, lightheadedness, injury. Vision, double vision, tearing, blind spots, pain, nose b leeding, colds, obstruction, discharge, dental difficulties, gingival bleeding, dentures, neck stiffn ess, pain, tenderness, masses in thyroid or other areas Cardiovascular: Precordial pain, substernal distress, palpitations, syncope, dyspnea on exertion, or thopnea, nocturnal paroxysmal dyspnea, edema, cyanosis, hypertension, heart murmurs, varicosities, ph lebitis, claudication. Respiratory: Pain, shortness of breath, wheezing, stridor, cough, hemoptysis, fever or night sweats Gastrointestinal: Poor appetite, dysphagia, indigestion, abdominal pain, heartburn, eructation, naus ea, vomiting, hematemesis, jaundice, constipation, or diarrhea, abnormal stools (kelsea-colored, tarry, bloody, greasy, foul smelling), flatulence, hemorrhoids, recent changes in bowel habits. Genitourinary: Urgency, frequency, dysuria, nocturia, hematuria, polyuria, oliguria, unusual (or janee nge in) color of urine, stones, hesitancy, change in size of stream, dribbling, acute retention or in continence, libido, potency. Musculoskeletal: Pain, swelling, redness or heat of muscles or joints, limitation, of motion, muscular weakness, atrophy, cramps. Neurologic/Psychiatric: Convulsions, paralyses, tremor, incoordination, parasthesias, difficulties w ith memory of speech, sensory or motor disturbances, or muscular coordination (ataxia, tremor), emoti onal problems, anxiety, depression, previous psychiatric care, unusual perceptions, hallucinations. Allergy/Immunologic: Skin rash, anemia, bleeding tendency, polydipsia, polyuria, intolerance to heat or cold. PAST MEDICAL HISTORY: Significant for morbid obesity, gout, congestive heart failure, hypertension, diabetes type 2, and left lower extremity wound. PAST SURGICAL HISTORY: Significant for tubal ligation, cataract surgery. PSYCHIATRIC HISTORY: No previous psychiatric history. SOCIAL HISTORY: Recently discharged from skilled nursing. Denies drugs, alcohol, or smoking. HOME MEDICATIONS: Lasix 20 mg b.i.d., allopurinol 100 mg t.i.d., ferrous sulfate 325 mg b.i.d., carv edilol 12.5 mg b.i.d., amlodipine 10 mg every day, fish oil tablet 1 gram every day. DRUG ALLERGIES: The patient has no known drug allergies. FAMILY HISTORY: Reviewed and noncontributory. PHYSICAL EXAMINATION: GENERAL: She is somnolent upon interview. HEAD: Normocephalic, atraumatic. EYES: PERRL. Extraocular muscles intact. ENT: Nose exam is normal. Mouth exam, mucous membranes moist. NECK: Trachea midline. Normal range of motion. CHEST: Breath sounds clear. No wheezing, no rhonchi. CARDIOVASCULAR: Regular rate and rhythm. No murmurs, regurg, or gallops. ABDOMEN: Morbidly obese, nontender. EXTREMITIES: No clubbing or cyanosis. There is a healing wound to the left lower extremity as well as venous stasis changes bilaterally with 2 to 3+ pitting edema. LABORATORY DATA/IMAGES: CBC shows a white count of 8.3, hemoglobin 10.7, hematocrit 33.7, platelets 221, no left shift, no bandemia. CMP shows a sodium of 142, potassium 4.7, chloride 111, CO2 of 19, BUN 28, creatinine 1.69, glucose 95, AST 33, ALT 14. Troponin I of 0.023, CK-MB 5.6, albumin 3.9. U rinalysis, yellow, clear, trace blood, negative ketones, negative leukocytes, no bacteria seen. ASSESSMENT: 1. The patient with weakness and inability to perform activities of daily living. 2. Chronic left leg wound. 3. Diabetes type 2. 4. Morbid obesity. PLAN: The patient will be admitted to observation. [facility] has been consulted and I attempted t o interview the patient today. She was excessively somnolent. They will come and reassess her tomor row for transfer to [facility] for rehabilitation and PT. The patient will be placed on her antihyp ertensive regimen and we will monitor and treat her accordingly.
[2017-08-26] MEDS: Heparin 5,000 UNITS/ML VIAL SC SCH (20:21)
[2017-08-26] MEDS: Sodium Chloride 0.9% 1,000 ML IV SCH (20:21)
[2017-08-27 01:30] VITALS: BMI 43.5
[2017-08-27 04:33] LABS: Anion Gap 13 mmol/L (10-20); BUN (Urea Nitrogen) 24 mg/dL (9.8-20.1); Calc. Creatinine Clearance 76 mL/min (70-130); Carbon Dioxide 22 mmol/L (23-31); Chloride 112 mmol/L (98-107); Estimated GFR-MDRD 48; Glucose 66 mg/dL (80-115); Potassium 4.4 mmol/L (3.5-5.1); Sodium 143 mmol/L (136-145)
[2017-08-27] MEDS: Heparin 5,000 UNITS/ML VIAL SC SCH ×2 (08:18→15:16)
[2017-08-27] MEDS: Sodium Chloride 0.9% 1,000 ML IV SCH (15:16)
[2017-08-27 17:58] VITALS: BP 115/68; TEMP 98.6
--- NOTE | 2017-08-28 00:57 | DIS ---
DATE OF ADMISSION: 08/26/2017 DATE OF DISCHARGE: 08/27/2017 CONDITION AT THE TIME OF DISCHARGE: Stable and improved. DISCHARGE DISPOSITION: [facility]. PRIMARY CARE PHYSICIAN: Kendra Monzon M.D. DISCHARGE DIAGNOSIS: Ongoing congenital weakness, necessitating further rehabilitation. SECONDARY DISCHARGE DIAGNOSES: 1. Morbid obesity. 2. Chronic lower extremity wound. 3. History of congestive heart failure 4. Diabetes mellitus type 2. 5. Gout. DISCHARGE MEDICATIONS: Resume home medications as below, ciprofloxacin 500 mg p.o. b.i.d., aspirin 3 25 mg daily, fish oil daily, ferrous sulfate 325 b.i.d. amlodipine 10 mg daily, Lasix 20 mg p.o. b.i. d., Coreg 12.5 mg p.o. b.i.d., allopurinol 100 mg p.o. t.i.d. PROCEDURES: None. CONSULTATIONS: None. ADMISSION HISTORY: Ms. Olivas was admitted for complaint of weakness, dizziness, and inability to pe rform ADLs and IADLs at home. She was admitted to our hospital recently and was [facility] where she was discharged home only 2 days ago. Family and the patient figure d out that they were not able to take care of her at home and presented to the emergency room. Upon presentation, she was hemodynamically stable and her workup was essentially unremarkable. She was ad mitted for placement issues mainly. Please see admission history and physical for further details. PHYSICAL EXAMINATION: The patient was seen and examined this morning and her physical exam includes: VITAL SIGNS: Temperature 98, pulse of 75, respirations 16, saturating 100% on room air, blood pressu re 138/58. She has been accepted to [facility]. I discussed the care plan with the family and t he patient who are agreeable with this. Wound care has seen the patient while in the hospital and we will continue to follow in rehabilitation setting. She has chronic lower extremity wound. She is i nstructed to follow up with a research compliance specialist on an outpatient basis. Please note that the patient report s that she was taken off her diabetic medications as her blood sugars have been running better. There are otherwise no acute issues and the patient will be discharged once transportation has been a rranged.
== END 2017-08-27 18:31 ==
LOC: ERS 10:35 → ERHOLD 15:09 → SURG A 18:08
PROVIDERS: ADMIT Internal Medicine Addiction Medicine; ATTEND Internal Medicine Addiction Medicine
DX: R53.1 Weakness (principal); S81.802A Unspecified open wound, left lower leg, initial encounter; I11.0 Hypertensive heart disease with heart failure; I50.9 Heart failure, unspecified; E11.9 Type 2 diabetes mellitus without complications; M10.9 Gout, unspecified; E66.01 Morbid (severe) obesity due to excess calories; Z68.41 Body mass index [BMI] 40.0-44.9, adult; Z79.899 Other long term (current) drug therapy
CPT/HCPCS: 51702; 80048; 80053; 82553; 82962 ×2; 84484; 85025; 87040; 93005; 97116; 97139 ×2; 97530; 99285; G0378; G8978; G8979; 36415; 36416; 81003; 81015; A4216; J1644

== ENCOUNTER 2018-04-04 16:36 | Inpatient (IN) | payer MEDICARE ==
[2018-04-04 17:14] LABS: Bilirubin Negative (Negative); Blood, Urine Trace (Negative); Clarity CLOUDY (Clear); Glucose, Urine (Dipstick) Negative (Negative); Leukocyte Moderate (Negative); Nitrite Positive (Negative); Protein, Urine (Dipstick) 30 mg/dL (Neg-Trace); Specific Gravity, Urine 1.011 (1.002-1.036); pH, Urine 5.5 (5.0-9.0)
[2018-04-04 17:16] LABS: Bacteria/HPF 4+ HPF (None Seen); Hyaline Casts/LPF 0-3 HYALINE CAST LPF (0-3 Hyaline); Pathc Cast-AUWi Flag 0.43 (0-2.49); RBC/HPF 0-3 HPF (0-3)
--- NOTE | 2018-04-04 17:36 | RAD ---
SINGLE VIEW OF THE CHEST 04/04/18 COMPARISON: 07/16/17 HISTORY: Weakness for three days. FINDINGS: Single view of the chest shows a normal sized cardiomediastinal silhouette. There is no evidence of c onsolidation, mass, or pleural effusion. The bones are unremarkable. IMPRESSION: No evidence of acute cardiopulmonary disease. POS: [facility]
[2018-04-04 17:43] LABS: #Basophils 0.1 thou/uL (0.0-0.2); #Eosinphils 0.2 thou/uL (0.0-0.7); #Lymphocytes 1.3 thou/uL (1.20-3.40); #Monocytes 0.6 thou/uL (0.11-0.59); #Neutrophils 6.6 thou/uL (1.40-6.50); %Basophils 0.6 % (0.0-1.0); %Eosinophils 2.8 % (0.0-10.0); %Lymphocytes 14.8 % (21.0-51.0); %Monocytes 7.1 % (0.0-10.0); %Neutrophils 74.8 % (42.0-75.0); Hemoglobin 9.3 g/dL (12.0-16.0); Mean Corpuscular HGB CONC 32.2 g/dL (32.0-36.0); Mean Corpuscular Hemoglobin 29.4 pg (27.0-31.0); Mean Corpuscular Volume 91.3 fL (78.0-98.0); Mean Platelet Volume 7.6 fL (7.4-10.4); Platelet Count 294 thou/uL (130-400); RBC Distribution Width 14.5 % (11.5-14.5); Red Blood Cell (RBC) Count 3.15 mill/uL (4.20-5.40); White Blood Cell (WBC) Count 8.8 thou/uL (4.8-10.8)
[2018-04-04 18:03] LABS: ALT (SGPT) 10 U/L (8-55); AST (SGOT) 21 U/L (5-34); Albumin 3.7 g/dL (3.4-4.8); Alkaline Phosphatase 94 U/L (40-150); Anion Gap 16 mmol/L (10-20); BUN (Urea Nitrogen) 40 mg/dL (9.8-20.1); Bilirubin, Total 0.7 mg/dL (0.2-1.2); Calc. Creatinine Clearance 0 mL/min (70-130); Calcium 9.7 mg/dL (7.8-10.44); Carbon Dioxide 18 mmol/L (23-31); Chloride 110 mmol/L (98-107); Estimated GFR-MDRD 28; Globulin 4.7 g/dL (2.4-3.5); Glucose 94 mg/dL (83-110); Potassium 4.7 mmol/L (3.5-5.1); Protein, Total 8.4 g/dL (6.0-8.3); Sodium 139 mmol/L (136-145)
[2018-04-04] MEDS ORDERED: cefTRIAXone\\ROCEPHIN 1 GM VIAL ONE (18:40)
[2018-04-04 20:57] LABS: CKMB 3.1 ng/mL (0-6.6); Troponin I 0.015 ng/mL (< 0.028)
[2018-04-04] MEDS ORDERED: Ondansetron HCl/PF 4 MG/2 ML Vial IVP PRN (21:26)
[2018-04-04] MEDS ORDERED: Guaifenesin DM 100-10/5 ML UDCUP PO PRN (21:26)
[2018-04-04] MEDS ORDERED: Acetaminophen 325 MG TAB PO PRN (21:26)
[2018-04-04] MEDS ORDERED: Senokot 8.6 MG TAB PO PRN (21:26)
[2018-04-04 21:42] LABS: CO2 Tension 37.1 mmHg (35.0-45.0); O2 Tension (PaO2) 92.8 mmHg (> 70.0); pH, Arterial 7.35 (7.35-7.45)
[2018-04-04 21:43] LABS: Actual Bicarbonate (HCO3a) 19.8 mEq/L (22-28); Base Excess (BEa) -5.4 mEq/L (-2.0 to +3.0); Calcium, Ionized 1.22 mmol/L (1.12-1.30); Hemoglobin (Hb) 9.1 g/dL (12.0-16.0); Potassium - ABG Lab 4.6 mmol/L (3.70-5.30)
[2018-04-04 21:44] LABS: ALV-art Gradient 10.555 (0-20); Analyzer IN Cardio ER; Puncture Site RRA
[2018-04-04] MEDS: Sodium Chloride 0.9% 1,000 ML IV SCH (23:34)
[2018-04-04] MEDS ORDERED: Vancomycin HCl 1.5 GM in Sodium Chloride 0.9% 250 ML 300 ML IVPB SCH (23:59)
[2018-04-05 00:44] VITALS: BMI 41.1
[2018-04-05] MEDS: Piperacillin/Tazobactam 2.25 GM in Sodium Chloride 0.9% 100 ML IVPB SCH ×4 (02:06→20:15)
[2018-04-05 02:19] LABS: #Eosinphils 0.4 thou/uL (0.0-0.7); #Lymphocytes 1.7 thou/uL (1.20-3.40); #Monocytes 0.9 thou/uL (0.11-0.59); #Neutrophils 6.1 thou/uL (1.40-6.50); %Basophils 0.4 % (0.0-1.0); %Eosinophils 4.1 % (0.0-10.0); %Lymphocytes 18.9 % (21.0-51.0); %Monocytes 9.9 % (0.0-10.0); %Neutrophils 66.7 % (42.0-75.0); Hemoglobin 8.8 g/dL (12.0-16.0); Mean Corpuscular HGB CONC 31.7 g/dL (32.0-36.0); Mean Corpuscular Hemoglobin 29.6 pg (27.0-31.0); Mean Corpuscular Volume 93.3 fL (78.0-98.0); Mean Platelet Volume 7.5 fL (7.4-10.4); Platelet Count 262 thou/uL (130-400); RBC Distribution Width 14.4 % (11.5-14.5); Red Blood Cell (RBC) Count 2.97 mill/uL (4.20-5.40); White Blood Cell (WBC) Count 9.2 thou/uL (4.8-10.8)
[2018-04-05 02:37] LABS: Troponin I 0.028 ng/mL (< 0.028)
[2018-04-05 02:41] LABS: Anion Gap 16 mmol/L (10-20); BUN (Urea Nitrogen) 39 mg/dL (9.8-20.1); Calc. Creatinine Clearance 50 mL/min (70-130); Calcium 9.2 mg/dL (7.8-10.44); Carbon Dioxide 18 mmol/L (23-31); Chloride 111 mmol/L (98-107); Estimated GFR-MDRD 33; Glucose 89 mg/dL (83-110); Potassium 4.9 mmol/L (3.5-5.1); Sodium 140 mmol/L (136-145)
--- NOTE | 2018-04-05 04:17 | HP ---
REASON FOR ADMISSION: Generalized weakness, urinary tract infection. HISTORY OF PRESENT ILLNESS: Please note the patient is very lethargic and needs a sternal rub to wake her up. Per her son who lives with the patient, Mr. Castro Olivas, patient was having generalized weakness and she was not able to walk. She normally walks inside the house and takes a few steps outside as well. This has been ongoing for the last 2 days and was worsening. He also does mention that she snores, but he does not recall her having apneic spells. The patient had not complained of any chest pain or shortness of breath. Here in the ER, she has had generalized workup and initial blood work done shows acute kidney injury with metabolic acidosis and urinary tract infection. ABG is currently pending. PAST MEDICAL AND SURGICAL HISTORY: Morbid obesity with the patient weighing nearly 113 kilos, chronic stasis dermatitis, hypertension, gout, prior history of respiratory failure with flash pulmonary edema, requiring mechanical ventilation in the past. Possible obstructive sleep apnea, chronic diastolic heart failure with ejection fraction of 50-55%, CKD stage 3, chronic lower extremity edema with stasis ulcers which has been there for the last 5-6 years per son, GERD, cataract surgery. CURRENT MEDICATIONS: The patient is on Lasix 20 mg twice daily, allopurinol 100 mg 3 times daily, ferrous sulfate 325 mg twice daily, Coreg 12.5 mg twice daily, Norvasc 10 mg daily, fish oil 1000 mg daily. ALLERGIES: No known drug allergies. PERSONAL HISTORY: Does not abuse alcohol or drugs. No history of smoking. She lives with her son. FAMILY HISTORY: Positive for diabetes and coronary artery disease. CODE STATUS: This was discussed with the patient's son, Mr. Castro Olivas who is also the power of [employer]. The patient is a DNR per our conversation. Please note patient is very lethargic at present and cannot make an informed decision at present. REVIEW OF SYSTEMS: Cannot be obtained as patient is very lethargic and nearly obtunded. PHYSICAL EXAMINATION: GENERAL: The patient is a 72-year-old female who is very lethargic at present. VITAL SIGNS: Blood pressure 122/60, pulse 90 per minute, respiratory rate 16 per minute, temperature 98.5 degrees Fahrenheit, saturating 98% on room air. NECK: Supple. No elevated JVD. HEENT: Eyes: Extraocular muscles intact. Pupils are reacting to light. Oral cavity mucous membranes are dry. No exudates or congestion. CARDIOVASCULAR: S1, S2 heard. Regular rhythm. RESPIRATORY: Air entry 1+ bilateral. Scattered rhonchi plus no rales or wheezes. ABDOMEN: Soft. Bowel sounds heard. No tenderness, rigidity, or guarding. EXTREMITIES: Patient has chronic skin tethering with ulcerations on both lower extremities, worse on the left leg. No digital gangrene seen. Upper extremity : Peripheral pulses are 2+. Lower extremities: Barely palpable. CENTRAL NERVOUS SYSTEM: The patient is very lethargic, but is seen moving all extremities. PSYCHIATRIC: Cannot be accurately assessed as patient is very lethargic and nearly obtunded. LABORATORY AND X-RAY FINDINGS: White count of 8, H&H 9.3 and 28, platelet count 294,000 with 74% neutrophils, MCV is 91. Serum bicarbonate 18, BUN 40, creatinine 2.0, lactic acid 1.4, troponin I 0.01. Albumin is 3.7. CK-MB 3.1. UA is positive for UTI. Chest x-ray done shows no acute cardiopulmonary abnormalities. EKG done shows normal sinus rhythm at 87 beats per minute. CLINICAL IMPRESSION AND PLAN: Patient will be admitted to telemetry for progressive generalized weakness, acute encephalopathy, urinary tract infection. We will obtain an ABG stat and see what the blood gas looks like. We will also obtain a BNP. The patient will be empirically placed on vancomycin and Zosyn. Blood and urine cultures have been obtained in the ER. We will continue her home dose of Norvasc, aspirin, Coreg, fish oil as before. Her allopurinol will be reduced to once daily 100 mg. Patient has acute kidney injury with metabolic acidosis. She has also had prior episodes of flash pulmonary edema with respiratory failure. She will be closely monitored on telemetry for the same. PT, OT evaluations will be requested. She already has [facility] with PT and wound care at home. Her overall prognosis is guarded due to morbid obesity and multiple medical issues and poor functional status. We will closely monitor her on telemetry. If needed, she will be placed on CPAP or BiPAP based on the blood gas. SHAHRZAD
[2018-04-05] MEDS ORDERED: Aspirin 81 mg Enteric Coated Tablet PO SCH (09:00)
[2018-04-05] MEDS ORDERED: Famotidine 20 MG TAB PO SCH (09:00)
[2018-04-05] MEDS: Ferrous Sulfate 325 MG TAB PO SCH ×2 (09:09→20:14)
[2018-04-05] MEDS: Fish Oil 1,000 MG CAP PO SCH (09:09)
[2018-04-05] MEDS: Famotidine 20 MG TAB PO SCH (09:09)
[2018-04-05] MEDS: Carvedilol 6.25 MG TAB PO SCH ×2 (09:10→17:32)
[2018-04-05] MEDS: Docusate 100 MG CAP PO SCH ×2 (09:11→20:15)
[2018-04-05] MEDS: Allopurinol 100 MG TAB PO SCH (09:13)
[2018-04-05] MEDS: Heparin 5,000 UNITS/ML VIAL SC SCH ×3 (09:13→20:14)
[2018-04-05] MEDS: Amlodipine 10 MG TAB PO SCH (09:14)
[2018-04-05] MEDS ORDERED: Aspirin 325 mg Enteric Coated Tablet PO SCH (09:15)
--- NOTE | 2018-04-05 10:35 | PDOC.PN ---
- Subjective Encounter Start Date: 04/05/18 Encounter Start Time: 07:40 Subjective: is more awake and talking this am -: no sob, moves all extremities - Objective Resuscitation Status: Resuscitation Status DNR:Do Not Resuscitate MAR Reviewed: Yes Vital Signs & Weight: Vital Signs (12 hours) Temp Pulse Resp BP BP Pulse Ox 04/05/18 09:14 85 159/67 H 04/05/18 09:10 159/67 H 04/05/18 08:00 97.6 F 56 L 16 100 04/05/18 07:43 97.6 F 56 L 16 159/67 H 100 04/05/18 04:00 97.6 F 82 20 151/76 H 100 04/05/18 01:34 97.5 F L 55 L 16 98 Weight Weight 247 lb I&O: 04/04/18 04/05/18 04/06/18 06:59 06:59 06:59 Intake Total 615 Output Total 0 Balance 615 Result Diagrams: 04/05/18 01:51 04/05/18 01:51 Additional Labs: Accuchecks 04/05/18 04:07 POC Glucose 89 Phys Exam - Physical Examination HEENT: PERRLA, sclera anicteric Neck: no JVD, supple Respiratory: no wheezing, no rales Cardiovascular: RRR, no significant murmur Gastrointestinal: soft, non-tender, positive bowel sounds Musculoskeletal: pulses present, edema present chronic ulcerations over b/l LE Neurological: non-focal, moves all 4 limbs Psychiatric: normal affect, A&O x 3 Dx/Plan (1) Acute renal failure superimposed on stage 3 chronic kidney disease Code(s): N17.9 - ACUTE KIDNEY FAILURE, UNSPECIFIED; N18.3 - CHRONIC KIDNEY DISEASE, STAGE 3 (MODERATE) Status: Acute Qualifiers: (2) Dehydration Code(s): E86.0 - DEHYDRATION Status: Acute (3) UTI (urinary tract infection) Status: Acute Qualifiers: Urinary tract infection type: acute cystitis Hematuria presence: without hematuria Qualified Code(s): N30.00 - Acute cystitis without hematuria (4) Venous insufficiency of both lower extremities Code(s): I87.2 - VENOUS INSUFFICIENCY (CHRONIC) (PERIPHERAL) Status: Chronic (5) Weakness Code(s): R53.1 - WEAKNESS Status: Acute Comment: physical deconditioning. PT/OT eval (6) Chronic diastolic (congestive) heart failure Code(s): I50.32 - CHRONIC DIASTOLIC (CONGESTIVE) HEART FAILURE Status: Chronic Comment: EF 50-55%, class 3 (7) Morbid obesity Code(s): E66.01 - MORBID (SEVERE) OBESITY DUE TO EXCESS CALORIES Status: Chronic (8) PAD (peripheral artery disease) Code(s): I73.9 - PERIPHERAL VASCULAR DISEASE, UNSPECIFIED Status: Chronic - Plan on vanc and zosyn, await cultures -: wound care for LE -: gentle iv hydration for 1 more liter and stop -: renal function is improving, creatinine around 1.8 this am -: PT/OT to mobilize as tolerated * . Review of Systems - Medications/Allergies Allergies/Adverse Reactions: Allergies Allergy/AdvReac Type Severity Reaction Status Date / Time No Known Drug Allergies Allergy Verified 01/24/17 20:06 Medications: Current Medications Acetaminophen (Tylenol) 650 mg PO Q4H PRN PRN Reason: Headache/Fever or Pain Allopurinol (Zyloprim) 100 mg PO DAILY [facility] Last Admin: 04/05/18 09:13 Dose: 100 mg Amlodipine Besylate (Norvasc) 10 mg PO DAILY [facility] Last Admin: 04/05/18 09:14 Dose: 10 mg Aspirin (Ecotrin) 325 mg PO DAILY [facility] Carvedilol (Coreg) 12.5 mg PO BID-[facility] Last Admin: 04/05/18 09:10 Dose: 12.5 mg Docusate Sodium (Colace) 100 mg PO BID [facility] Last Admin: 04/05/18 09:11 Dose: 100 mg Famotidine (Pepcid) 20 mg PO DAILY [facility] Last Admin: 04/05/18 09:09 Dose: 20 mg Ferrous Sulfate (Feosol) 325 mg PO BID [facility] Last Admin: 04/05/18 09:09 Dose: 325 mg Fish Oil (Fish Oil) 1,000 mg PO DAILY [facility] Last Admin: 04/05/18 09:09 Dose: 1,000 mg Guaifenesin/Dextromethorphan (Robitussin Dm) 15 ml PO Q4H PRN PRN Reason: Cough Heparin Sodium (Porcine) (Heparin) 5,000 units SC TID [facility] Last Admin: 04/05/18 09:13 Dose: 5,000 units Sodium Chloride (Normal Saline 0.9%) 1,000 mls @ 80 mls/hr IV .[id number] [facility] Stop: 04/05/18 22:29 Last Admin: 04/04/18 23:34 Dose: 1,000 mls Piperacillin Sod/Tazobactam (Sod 2.25 gm/ Sodium Chloride) 100 mls @ 200 mls/ hr IVPB 0200,0800,1400,2000 [facility] Last Admin: 04/05/18 08:51 Dose: 100 mls Vancomycin HCl 1.5 gm/ Sodium (Chloride) 300 mls @ 200 mls/hr IVPB Q24HR@2359 [facility] Last Admin: 04/04/18 23:35 Dose: 300 mls Miscellaneous Medication (Pharmacy To Dose) 0 each IVPB PRN PRN PRN Reason: VANC Pharmacy to Dose Ondansetron HCl (Zofran) 4 mg IVP Q6H PRN PRN Reason: Nausea/Vomiting Pneumococcal 13-Valent Conj Vacc (Prevnar) 0.5 ml IM .ONCE ONE Stop: 04/06/18 09:01 Last Admin: 04/05/18 01:05 Dose: Not Given Senna (Senokot) 2 tab PO HSPRN PRN PRN Reason: Constipation Sodium Chloride (Flush - Normal Saline) 10 ml IVF Q12HR [facility] Last Admin: 04/05/18 09:14 Dose: Not Given Sodium Chloride (Flush - Normal Saline) 10 ml IVF PRN PRN PRN Reason: Saline Flush
[2018-04-05] MEDS: Sodium Chloride 0.9% 1,000 ML IV SCH (16:21)
--- NOTE | 2018-04-05 16:27 | ULT ---
ULTRASOUND RENAL BILATERAL STANDARD 04/05/18 HISTORY: Urinary tract infection. COMPARISON: None. TECHNIQUE: Real time delgado scale and color evaluation of the kidneys and urinary bladder was performed. FINDINGS: Right kidney measures 9.2 x 5 x 5 cm. Left kidney measures 7.4 x 2.9 x 3.1 cm. No renal mass, hydrone phrosis or abnormal calcifications. Prevoid urinary bladder volume is 295 mL. IMPRESSION: 1. Small kidneys can be seen with chronic medical renal disease. 2. Prevoid urinary bladder volume of nearly 300 mL. POS: [facility]
--- NOTE | 2018-04-05 18:22 | CON ---
DATE OF CONSULTATION: 04/05/2018 REASON FOR CONSULTATION: Confusional state, ulcers in the skin of lower extremities. HISTORY OF PRESENT ILLNESS: A 72-year-old patient whom I had seen in the past in 02/2015 when she presented with a history of chronic ulcers in the lower extremities, gout, obesity, venous insufficiency and type 2 diabetes. At that time, the impression was that she had lymphedema with stasis dermatitis and venous ulcerations. At this time, the patient is brought in because of lethargy. She lives with her son and he was going to work and found her sleepy and the patient herself does not recall that. She says that she could not bear weight on her knees because they are hurting too much. Anyway she was brought into the hospital. She did not have any evidence of headaches, visual symptoms , sore throat, odynophagia, dysphagia, no vomiting, no diarrhea, no chest pain. No abdominal pain or back pain. She has multiple joint symptoms related to gouty arthropathy. PAST MEDICAL HISTORY: Includes obesity, stasis dermatitis, venous insufficiency , hypertension, gout, episodes of pulmonary edema requiring mechanical ventilation, possible obstructive sleep apnea. MEDICATIONS: Currently receiving Tylenol, Zyloprim, Norvasc, Ecotrin, Coreg, Colace, Pepcid, Feosol, fish oil, heparin, Zosyn, and vancomycin. ALLERGIES: None. SOCIAL HISTORY: Never a smoker. Lives with son. FAMILY HISTORY: Diabetes mellitus type 2 and coronary artery disease. PHYSICAL EXAMINATION: NEUROLOGIC: Awake, sitting at the side of the bed. She just previously had to be cleaned because of profuse soft stool in the perineal area. She is urinating in a diaper. SKIN: With shallow ulcers in the gluteal regions with fresh red base, very shallow. She has right ankle ulceration which is chronic and has a fresh surface. There is a lot of dermatosclerosis hyperkeratosis of the skin of the lower extremities with stasis dermatitis and lymphedema. No lymphadenopathy. HEENT: Noncontributory. NECK: Supple. LUNGS: With symmetric clear breath sounds. HEART: S1, S2, regular rate without murmurs. Diminished heart sounds. Soft aortic murmur. ABDOMEN: Soft, prominent panniculus. No obvious tenderness. No ascites. No bladder distention. MUSCULOSKELETAL: The patient is able to move extremities equally. She has a lot of degenerative arthritis in knees, ankles, but no acute pain during the examination. NEUROLOGIC: She is awake, follows commands. LABORATORY DATA: White cell count 8.8, hemoglobin 9.3, platelets 294, creatinine is 1.83, which is a bit higher than her baseline of 1.3 few months ago, AST was 21, ALT 10, alkaline phosphatase 94, bilirubin 0.7, albumin 3.7, globulin 4.7 with previous globulins are elevated as well as far as back as 2012. Microbiology; we have culture from the ankle with gram negative le and Staph aureus. Culture from the blood with coagulase negative Staph and culture from urine with E. coli. The urine culture had greater than 100,000 CFUs. Urinalysis with 11-20 WBCs. ASSESSMENT AND DISCUSSION: Morbid obesity, CARINE, chronic skin ulcers secondary to stasis dermatitis as well as shallow ulcers in the dependent areas of the gluteal region secondary to pressure, now with some lethargy and change in mental status, abnormal urinalysis with positive urine culture. The blood cultures reflect contamination of the sample. The cultures from the ankle, likely colonization of the surface of the ulcer, but I do not believe that the ulcer has features that would be suggestive of an infectious complication. At this point, would recommend narrowing down her antimicrobial to the Zosyn and discontinue vancomycin and once we have the susceptibility profile for the E. coli, then transition to hopefully oral regimen. The ulcers need to continue with wound care only. I would not advise antimicrobial therapy for those. It is possible that the clinical presentation is unrelated to the urinary findings and that she had asymptomatic bacteriuria, but I cannot be sure of that. So I think it is worthwhile to treat it. May consider imaging study with ultrasound of the kidneys and bladder to rule out obstruction/retention of urine. SHAHRZAD
[2018-04-06] MEDS: Piperacillin/Tazobactam 2.25 GM in Sodium Chloride 0.9% 100 ML IVPB SCH ×2 (02:06→20:10)
[2018-04-06] MEDS ORDERED: Prevnar 13-Val Conj/PF 0.5 ML SYRINGE IM ONE (09:00)
[2018-04-06] MEDS: Heparin 5,000 UNITS/ML VIAL SC SCH ×3 (09:00→20:53)
[2018-04-06] MEDS: Famotidine 20 MG TAB PO SCH (09:01)
[2018-04-06] MEDS: Carvedilol 6.25 MG TAB PO SCH ×2 (09:01→18:18)
[2018-04-06] MEDS: Allopurinol 100 MG TAB PO SCH (09:42)
[2018-04-06] MEDS: Fish Oil 1,000 MG CAP PO SCH (09:42)
[2018-04-06] MEDS: Amlodipine 10 MG TAB PO SCH (09:42)
[2018-04-06] MEDS: Aspirin 325 mg Enteric Coated Tablet PO SCH (09:42)
[2018-04-06] MEDS: Docusate 100 MG CAP PO SCH ×2 (09:42→20:53)
[2018-04-06] MEDS: Ferrous Sulfate 325 MG TAB PO SCH ×2 (09:42→20:53)
--- NOTE | 2018-04-06 12:18 | PDOC.PN ---
- Subjective Encounter Start Date: 04/06/18 Encounter Start Time: 07:45 Subjective: is awake, oriented well this morning -: will work with PT today to see if she can amb more -: no abd pain or nausea - Objective Resuscitation Status: Resuscitation Status DNR:Do Not Resuscitate MAR Reviewed: Yes Vital Signs & Weight: Vital Signs (12 hours) Temp Pulse Resp BP BP BP Pulse Ox 04/06/18 09:42 72 131/76 04/06/18 09:01 131/76 04/06/18 07:46 97.9 F 72 16 115/45 L 100 04/06/18 04:00 98.3 F 72 20 170/78 H 100 Weight Admit Weight 247 lb Weight 247 lb I&O: 04/05/18 04/06/18 04/07/18 06:59 06:59 06:59 Intake Total 615 2742 Output Total 0 2 Balance 615 2740 Result Diagrams: 04/05/18 01:51 04/05/18 01:51 Additional Labs: Accuchecks 04/06/18 04/06/18 04/05/18 11:19 04:45 19:58 POC Glucose 106 87 124 H 04/05/18 16:24 POC Glucose 147 H Phys Exam - Physical Examination HEENT: PERRLA, moist MMs Neck: no JVD, supple Respiratory: no wheezing, no rales Cardiovascular: RRR, no significant murmur Gastrointestinal: soft, non-tender, positive bowel sounds Musculoskeletal: pulses present, edema present Neurological: non-focal, moves all 4 limbs Psychiatric: normal affect, A&O x 3 Dx/Plan (1) Acute renal failure superimposed on stage 3 chronic kidney disease Code(s): N17.9 - ACUTE KIDNEY FAILURE, UNSPECIFIED; N18.3 - CHRONIC KIDNEY DISEASE, STAGE 3 (MODERATE) Status: Acute Qualifiers: (2) Dehydration Code(s): E86.0 - DEHYDRATION Status: Resolved (3) UTI (urinary tract infection) Status: Acute Qualifiers: Urinary tract infection type: acute cystitis Hematuria presence: without hematuria Qualified Code(s): N30.00 - Acute cystitis without hematuria (4) Venous insufficiency of both lower extremities Code(s): I87.2 - VENOUS INSUFFICIENCY (CHRONIC) (PERIPHERAL) Status: Chronic (5) Weakness Code(s): R53.1 - WEAKNESS Status: Acute Comment: physical deconditioning. PT/OT eval (6) Chronic diastolic (congestive) heart failure Code(s): I50.32 - CHRONIC DIASTOLIC (CONGESTIVE) HEART FAILURE Status: Chronic Comment: EF 50-55%, class 3 (7) Morbid obesity Code(s): E66.01 - MORBID (SEVERE) OBESITY DUE TO EXCESS CALORIES Status: Chronic (8) PAD (peripheral artery disease) Code(s): I73.9 - PERIPHERAL VASCULAR DISEASE, UNSPECIFIED Status: Chronic - Plan is on cipro oral -: deconditioning, to see if she can ambulate more today -: dc plan options are current HH with PT or rehab -: await PT opinion today -: is eating well and encephalopathy is resolved * . Counselled to get outpt sleep study (did not complete a prior study). Hemostable Review of Systems - Medications/Allergies Allergies/Adverse Reactions: Allergies Allergy/AdvReac Type Severity Reaction Status Date / Time No Known Drug Allergies Allergy Verified 01/24/17 20:06 Medications: Current Medications Acetaminophen (Tylenol) 650 mg PO Q4H PRN PRN Reason: Headache/Fever or Pain Allopurinol (Zyloprim) 100 mg PO DAILY [facility] Last Admin: 04/06/18 09:42 Dose: 100 mg Amlodipine Besylate (Norvasc) 10 mg PO DAILY [facility] Last Admin: 04/06/18 09:42 Dose: 10 mg Aspirin (Ecotrin) 325 mg PO DAILY [facility] Last Admin: 04/06/18 09:42 Dose: 325 mg Carvedilol (Coreg) 12.5 mg PO BID-[facility] Last Admin: 04/06/18 09:01 Dose: 12.5 mg Ciprofloxacin (Cipro) 250 mg PO BID@06,1999 [facility] Docusate Sodium (Colace) 100 mg PO BID [facility] Last Admin: 04/06/18 09:42 Dose: 100 mg Famotidine (Pepcid) 20 mg PO DAILY [facility] Last Admin: 04/06/18 09:01 Dose: 20 mg Ferrous Sulfate (Feosol) 325 mg PO BID [facility] Last Admin: 04/06/18 09:42 Dose: 325 mg Fish Oil (Fish Oil) 1,000 mg PO DAILY [facility] Last Admin: 04/06/18 09:42 Dose: 1,000 mg Guaifenesin/Dextromethorphan (Robitussin Dm) 15 ml PO Q4H PRN PRN Reason: Cough Heparin Sodium (Porcine) (Heparin) 5,000 units SC TID [facility] Last Admin: 04/06/18 09:00 Dose: 5,000 units Ondansetron HCl (Zofran) 4 mg IVP Q6H PRN PRN Reason: Nausea/Vomiting Senna (Senokot) 2 tab PO HSPRN PRN PRN Reason: Constipation Sodium Chloride (Flush - Normal Saline) 10 ml IVF Q12HR [facility] Last Admin: 04/06/18 09:43 Dose: Not Given Sodium Chloride (Flush - Normal Saline) 10 ml IVF PRN PRN PRN Reason: Saline Flush
[2018-04-06] MEDS: Cipro 250 MG TAB PO SCH (20:53)
--- NOTE | 2018-04-06 21:49 | EKG ---
Test Reason : WEAKNESS Blood Pressure : / mmHG Vent. Rate : 087 BPM Atrial Rate : 087 BPM P-R Int : 162 ms QRS Dur : 084 ms QT Int : 380 ms P-R-T Axes : 045 005 048 degrees QTc Int : 457 ms Normal sinus rhythm Normal ECG Confirmed by ARELY ARAMBULA M.D. ([id number]), electronic news gathering editor SCOTT CRUZ ([id number]) on 04/06/2018 9:49:11 PM Referred By: Confirmed By:ARELY ARAMBULA M.D.
[2018-04-07] MEDS: Cipro 250 MG TAB PO SCH (06:01)
[2018-04-07 07:46] VITALS: TEMP 97.8
[2018-04-07] MEDS: Docusate 100 MG CAP PO SCH (09:05)
[2018-04-07] MEDS: Allopurinol 100 MG TAB PO SCH (09:05)
[2018-04-07] MEDS: Amlodipine 10 MG TAB PO SCH (09:05)
[2018-04-07] MEDS: Aspirin 325 mg Enteric Coated Tablet PO SCH (09:05)
[2018-04-07] MEDS: Famotidine 20 MG TAB PO SCH (09:05)
[2018-04-07] MEDS: Fish Oil 1,000 MG CAP PO SCH (09:05)
[2018-04-07] MEDS: Ferrous Sulfate 325 MG TAB PO SCH (09:05)
[2018-04-07] MEDS: Carvedilol 6.25 MG TAB PO SCH ×2 (09:05→17:44)
[2018-04-07] MEDS: Heparin 5,000 UNITS/ML VIAL SC SCH ×2 (09:06→17:44)
--- NOTE | 2018-04-07 11:54 | PDOC.PN ---
- Subjective Encounter Start Date: 04/07/18 Encounter Start Time: 07:00 Subjective: awake, feels good -: has amb 40ft with min assist yest, wants to go home - Objective Resuscitation Status: Resuscitation Status DNR:Do Not Resuscitate MAR Reviewed: Yes Vital Signs & Weight: Vital Signs (12 hours) Temp Pulse Resp BP BP Pulse Ox 04/07/18 09:05 70 124/76 04/07/18 07:42 97.8 F 70 16 124/62 100 Weight Admit Weight 247 lb Weight 247 lb I&O: 04/06/18 04/07/18 04/08/18 06:59 06:59 06:59 Intake Total 2742 1060 Output Total 2 Balance 2740 1060 Result Diagrams: 04/05/18 01:51 04/05/18 01:51 Additional Labs: Accuchecks 04/07/18 04/06/18 04/06/18 05:49 21:37 16:22 POC Glucose 80 107 116 H Phys Exam - Physical Examination HEENT: PERRLA, moist MMs Neck: no JVD, supple Respiratory: no wheezing, no rales Cardiovascular: RRR, no significant murmur Gastrointestinal: soft, non-tender, positive bowel sounds Musculoskeletal: pulses present, edema present Neurological: non-focal, moves all 4 limbs Psychiatric: normal affect, A&O x 3 Dx/Plan (1) Acute renal failure superimposed on stage 3 chronic kidney disease Code(s): N17.9 - ACUTE KIDNEY FAILURE, UNSPECIFIED; N18.3 - CHRONIC KIDNEY DISEASE, STAGE 3 (MODERATE) Status: Acute Qualifiers: (2) Dehydration Code(s): E86.0 - DEHYDRATION Status: Resolved (3) UTI (urinary tract infection) Status: Acute Qualifiers: Urinary tract infection type: acute cystitis Hematuria presence: without hematuria Qualified Code(s): N30.00 - Acute cystitis without hematuria (4) Venous insufficiency of both lower extremities Code(s): I87.2 - VENOUS INSUFFICIENCY (CHRONIC) (PERIPHERAL) Status: Chronic (5) Weakness Code(s): R53.1 - WEAKNESS Status: Acute Comment: physical deconditioning. PT/OT eval (6) Chronic diastolic (congestive) heart failure Code(s): I50.32 - CHRONIC DIASTOLIC (CONGESTIVE) HEART FAILURE Status: Chronic Comment: EF 50-55%, class 3 (7) Morbid obesity Code(s): E66.01 - MORBID (SEVERE) OBESITY DUE TO EXCESS CALORIES Status: Chronic (8) PAD (peripheral artery disease) Code(s): I73.9 - PERIPHERAL VASCULAR DISEASE, UNSPECIFIED Status: Chronic - Plan hemostable -: cipro for uti x 4 days -: has [facility] with wound care -: dc pt home, says her sister and son will help * . Review of Systems - Medications/Allergies Allergies/Adverse Reactions: Allergies Allergy/AdvReac Type Severity Reaction Status Date / Time No Known Drug Allergies Allergy Verified 01/24/17 20:06 Medications: Current Medications Acetaminophen (Tylenol) 650 mg PO Q4H PRN PRN Reason: Headache/Fever or Pain Allopurinol (Zyloprim) 100 mg PO DAILY [facility] Last Admin: 04/07/18 09:05 Dose: 100 mg Amlodipine Besylate (Norvasc) 10 mg PO DAILY [facility] Last Admin: 04/07/18 09:05 Dose: 10 mg Aspirin (Ecotrin) 325 mg PO DAILY [facility] Last Admin: 04/07/18 09:05 Dose: 325 mg Carvedilol (Coreg) 12.5 mg PO BID-[facility] Last Admin: 04/07/18 09:05 Dose: 12.5 mg Ciprofloxacin (Cipro) 250 mg PO BID@0600,2000 [facility] Last Admin: 04/07/18 06:01 Dose: 250 mg Docusate Sodium (Colace) 100 mg PO BID [facility] Last Admin: 04/07/18 09:05 Dose: 100 mg Famotidine (Pepcid) 20 mg PO DAILY [facility] Last Admin: 04/07/18 09:05 Dose: 20 mg Ferrous Sulfate (Feosol) 325 mg PO BID [facility] Last Admin: 04/07/18 09:05 Dose: 325 mg Fish Oil (Fish Oil) 1,000 mg PO DAILY [facility] Last Admin: 04/07/18 09:05 Dose: 1,000 mg Guaifenesin/Dextromethorphan (Robitussin Dm) 15 ml PO Q4H PRN PRN Reason: Cough Heparin Sodium (Porcine) (Heparin) 5,000 units SC TID [facility] Last Admin: 04/07/18 09:06 Dose: 5,000 units Ondansetron HCl (Zofran) 4 mg IVP Q6H PRN PRN Reason: Nausea/Vomiting Senna (Senokot) 2 tab PO HSPRN PRN PRN Reason: Constipation Sodium Chloride (Flush - Normal Saline) 10 ml IVF Q12HR [facility] Last Admin: 04/07/18 09:06 Dose: 10 ml Sodium Chloride (Flush - Normal Saline) 10 ml IVF PRN PRN PRN Reason: Saline Flush
[2018-04-07 17:52] VITALS: BP 150/80
--- NOTE | 2018-04-07 19:56 | DIS ---
DATE OFADMISSION: 04/04/2018 DATE OF DISCHARGE: 04/07/2018 DISCHARGE DISPOSITION: To home. PRIMARY DISCHARGE DIAGNOSES: Acute kidney injury on top of chronic kidney disease stage 3, dehydration, urinary tract infection, chronic venous stasis with ulcerations in the lower extremities, physical deconditioning, morbid obesity, peripheral vascular disease, chronic diastolic heart failure class III. PROCEDURES DONE DURING HOSPITALIZATION: Patient had chest x-ray done on the day of admission, which showed no acute cardiopulmonary abnormalities. Ultrasound of the kidneys done showed small kidneys with prevoid urinary bladder volume of nearly 300 mL Urine culture grew E. coli, sensitive to all antibiotics. H&H 9 and 27, platelet count 262. White count of 9. Initial creatinine was 2.0, discharge numbers of 1.8. Initial BUN was 40, discharge number of 39. Troponin x3 negative. BNP 81, albumin was 3.7. DISCHARGE MEDICATIONS: Norvasc 10 mg p.o. daily, ferrous sulfate 325 mg p.o. twice daily, fish oil 1000 mg p.o. daily, Lasix 20 mg twice daily, allopurinol 100 mg p.o. daily, Coreg 12.5 mg twice daily, ciprofloxacin 250 mg p.o. twice daily. No DINAH or ARBs were given due to patient's chronic kidney disease and current worsening with acute kidney injury. ALLERGIES: No known drug allergies. DISCHARGE PLAN: Patient to follow up with primary care physician in 1 week. BRIEF COURSE DURING HOSPITALIZATION: Patient initially was brought to Emergency Room for acute encephalopathy, generalized weakness and urinary tract infection. She was also dehydrated with volume depletion. The patient was gently hydrated during her stay in view of her history of heart failure with diastolic dysfunction. She is also morbidly obese with chronic venous stasis ulcerations in the lower extremities. The patient was placed on broad spectrum IV antibiotics initially and has been switched over to ciprofloxacin based on urinary culture results. She has home health and wound care with [facility] and needs to continue the same for her chronic venous stasis ulcerations. She has ambulated nearly 40 feet with a rolling walker and minimal assistance. The patient is wanting to go home and continue her home health and physical therapy and with wound care. In view of this, she will be shortly discharged home. Please see a [id number] documentation for the day of discharge on [facility]. [facility] CENTERA[facility]
== END 2018-04-07 19:15 | disposition home health service (06) | DRG 689 ==
LOC: ERS 16:36 → T4-B 20:04
PROVIDERS: ADMIT Internal Medicine; ATTEND Internal Medicine
DX: N30.00 Acute cystitis without hematuria (principal); G93.40 Encephalopathy, unspecified; N17.9 Acute kidney failure, unspecified; Z68.41 Body mass index [BMI] 40.0-44.9, adult; I50.32 Chronic diastolic (congestive) heart failure; I13.0 Hypertensive heart and chronic kidney disease with heart failure and stage 1 through stage 4 chronic kidney disease, or unspecified chronic kidney disease; E87.2 Acidosis; L97.909 Non-pressure chronic ulcer of unspecified part of unspecified lower leg with unspecified severity; E66.01 Morbid (severe) obesity due to excess calories; M10.9 Gout, unspecified; G47.33 Obstructive sleep apnea (adult) (pediatric); N18.3 Chronic kidney disease, stage 3 (moderate); K21.9 Gastro-esophageal reflux disease without esophagitis; Z66 Do not resuscitate; E86.0 Dehydration; I73.9 Peripheral vascular disease, unspecified; E11.22 Type 2 diabetes mellitus with diabetic chronic kidney disease; E11.51 Type 2 diabetes mellitus with diabetic peripheral angiopathy without gangrene; Z82.49 Family history of ischemic heart disease and other diseases of the circulatory system; Z83.3 Family history of diabetes mellitus
CPT/HCPCS: 36415; 36416; 51701; 71045; 76770; 80048; 80053; 81003; 81015; 82553; 82805; 83605; 83880; 84484; 85025; 87040; 87070; 87077; 87086; 87149; 87186; 87205; 93005; 96365; A4216; A4353; G8978-GP-CM; G8979-GP-CK; G8987-GO-CL; G8988-GO-CJ; J0696; J1644; J2543; J3370; J7050

== ENCOUNTER 2018-04-20 09:05 | Emergency (ER) | payer MEDICARE ==
[2018-04-20 10:53] LABS: Hemoglobin 8.8 g/dL (12.0-16.0); Mean Corpuscular HGB CONC 30.2 g/dL (32.0-36.0); Mean Corpuscular Hemoglobin 27.9 pg (27.0-31.0); Mean Corpuscular Volume 92.6 fL (78.0-98.0); Mean Platelet Volume 7.6 fL (7.4-10.4); Platelet Count 295 thou/uL (130-400); RBC Distribution Width 14.8 % (11.5-14.5); Red Blood Cell (RBC) Count 3.16 mill/uL (4.20-5.40); White Blood Cell (WBC) Count 8.8 thou/uL (4.8-10.8)
[2018-04-20 11:08] LABS: ALT (SGPT) 10 U/L (8-55); AST (SGOT) 16 U/L (5-34); Albumin 3.4 g/dL (3.4-4.8); Alkaline Phosphatase 77 U/L (40-150); Anion Gap 13 mmol/L (10-20); BUN (Urea Nitrogen) 28 mg/dL (9.8-20.1); Bilirubin, Total 0.5 mg/dL (0.2-1.2); Calc. Creatinine Clearance 0 mL/min (70-130); Calcium 9.4 mg/dL (7.8-10.44); Carbon Dioxide 24 mmol/L (23-31); Chloride 110 mmol/L (98-107); Estimated GFR-MDRD 35; Globulin 4.5 g/dL (2.4-3.5); Glucose 84 mg/dL (83-110); Potassium 5.2 mmol/L (3.5-5.1); Protein, Total 7.9 g/dL (6.0-8.3); Sodium 142 mmol/L (136-145)
[2018-04-20 11:22] LABS: Eosinophils 6 % (0-10); Hypochromia SLIGHT = 6-15 cells (100X) (0-5/hpf); Lymphocytes 18 % (21-51); MDiff Complete? YES; Microcytosis SLIGHT = 6-15 cells (100X) (0-5/hpf); Monocytes 6 % (0-10); Neutrophil 70 % (42-75); PLT Morphology Comment Appears Adequate; Polychromasia SLIGHT = 2-3 cells (100X) (0-2/hpf)
--- NOTE | 2018-04-20 11:25 | CT ---
NONCONTRAST CT HEAD: DATE: 04/20/18. HISTORY: Left leg weakness. The patient slipped from chair and lost consciousness. The patient also reports left leg weakness and numbness, and tingling for 2 days. COMPARISON: . FINDINGS: Again noted are findings most likely related to chronic small-vessel ischemic changes. There is mild cerebral volume loss again present as well. A low-density focus is again seen in each thalamus rela jorge to remote lacunar infarctions. There is no evidence of an acute cortical infarction, hemorrhage, mass effect, or midline shift. The ventricular system is normal in size, shape, and position for th e degree of sulcal atrophy. No calvarial fracture is seen. There has been no interval change from t he prior exam. IMPRESSION: 1. No acute intracranial abnormality is demonstrated. 2. Stable chronic small-vessel ischemic changes and cerebral volume loss. 3. Remote lacunar infarctions in each thalamus. POS: [facility]
[2018-04-20 13:55] LABS: Bilirubin Negative (Negative); Blood, Urine Negative (Negative); Glucose, Urine (Dipstick) Negative (Negative); Leukocyte Negative (Negative); Nitrite Negative (Negative); Protein, Urine (Dipstick) Negative (Neg-Trace); Urobilinogen 0.2 mg/dL (0.2-1.0)
[2018-04-20 13:59] LABS: Clarity Clear (Clear)
== END 2018-04-20 16:13 ==
LOC: ERS 09:05
DX: M62.81 Muscle weakness (generalized) (principal); M10.9 Gout, unspecified; E11.9 Type 2 diabetes mellitus without complications; I11.0 Hypertensive heart disease with heart failure; I50.9 Heart failure, unspecified; Z79.899 Other long term (current) drug therapy; Z79.82 Long term (current) use of aspirin; W19.XXXA Unspecified fall, initial encounter
CPT/HCPCS: 36415; 51701; 70450; 80053; 81003; 85025; A4353

== ENCOUNTER 2018-07-17 19:11 | Inpatient (IN) | payer MEDICARE ==
[2018-07-17] MEDS ORDERED: Acetaminophen 500 MG TAB ONE (19:55)
[2018-07-17 20:07] LABS: Hemoglobin 9.1 g/dL (12.0-16.0); Mean Corpuscular Hemoglobin 27.5 pg (27.0-31.0); Mean Corpuscular Volume 88.8 fL (78.0-98.0); Mean Platelet Volume 7.8 fL (7.4-10.4); Platelet Count 228 thou/uL (130-400); RBC Distribution Width 15.8 % (11.5-14.5)
[2018-07-17 20:28] LABS: ALT (SGPT) 38 U/L (8-55); AST (SGOT) 95 U/L (5-34); Albumin 2.9 g/dL (3.4-4.8); Alkaline Phosphatase 98 U/L (40-150); Anion Gap 18 mmol/L (10-20); BUN (Urea Nitrogen) 43 mg/dL (9.8-20.1); Bilirubin, Total 0.7 mg/dL (0.2-1.2); Calc. Creatinine Clearance 0 mL/min (70-130); Carbon Dioxide 15 mmol/L (23-31); Chloride 104 mmol/L (98-107); Estimated GFR-MDRD 25; Globulin 4.5 g/dL (2.4-3.5); Glucose 82 mg/dL (83-110); Potassium 5.3 mmol/L (3.5-5.1); Protein, Total 7.4 g/dL (6.0-8.3); Sodium 132 mmol/L (136-145)
[2018-07-17 20:30] LABS: Anisocytosis SLIGHT = 6-15 cells (100X) (0-5/hpf); Band 15 % (5-11); Burr Cells SLIGHT = 2-5 cells (100X) (0-1/hpf); Lymphocytes 3 % (21-51); MDiff Complete? YES; Monocytes 7 % (0-10); Neutrophil 75 % (42-75); Ovalocytes SLIGHT = 2-5 cells (100X) (0-1/hpf); PLT Morphology Comment Appears Adequate; Polychromasia SLIGHT = 2-3 cells (100X) (0-2/hpf)
--- NOTE | 2018-07-17 21:26 | RAD ---
PORTABLE CHEST 07/17/18 PROVIDED CLINICAL HISTORY: Weakness. FINDINGS: Comparison 04/04/18. The cardiac and mediastinal silhouette is unchanged in appearance. Lungs appear clear. No pleural f luid or pneumothorax apparent. IMPRESSION: No evidence for an acute cardiopulmonary process. POS: [facility]
[2018-07-17] MEDS ORDERED: Piperacillin/Tazobactam 4.5 GM VIAL ONE (21:31)
[2018-07-17] MEDS ORDERED: Clindamycin/D5W 900 mg/50 ml Premix Bag ONE (21:40)
[2018-07-17] MEDS ORDERED: Vancomycin HCl 1.5 GM in Sodium Chloride 0.9% 250 ML 300 ML IVPB SCH (22:00)
[2018-07-17 22:23] LABS: Bilirubin Small (Negative); Blood, Urine Large (Negative); Clarity CLOUDY (Clear); Glucose, Urine (Dipstick) Negative (Negative); Leukocyte Moderate (Negative); Nitrite Negative (Negative); Protein, Urine (Dipstick) 100 mg/dL (Neg-Trace); Specific Gravity, Urine 1.013 (1.002-1.036); pH, Urine 5.5 (5.0-9.0)
[2018-07-17 22:25] LABS: Bacteria/HPF 2+ HPF (None Seen); Hyaline Casts/LPF 7-10 HYALINE CAST LPF (0-3 Hyaline); Pathc Cast-AUWi Flag 1.45 (0-2.49); RBC/HPF 0-3 HPF (0-3); Squamous Epithelial 0-3 HPF (0-3); WBC/HPF 21-50 HPF (0-3)
[2018-07-18] MEDS ORDERED: Enoxaparin Sodium 40 MG/0.4 ML SYRINGE ONE (00:05)
[2018-07-18] MEDS ORDERED: Vancomycin HCl 1 GM in Premix Bag 1 BAG IVPB SCH (02:00)
[2018-07-18] MEDS ORDERED: Sodium Chloride 0.9% 1,000 ML IV SCH (02:00)
[2018-07-18 02:20] LABS: Troponin I 0.112 ng/mL (< 0.028)
[2018-07-18 03:22] VITALS: BMI 41.9
[2018-07-18] MEDS ORDERED: Ondansetron PF 4 MG/2 ML Vial IVP PRN (03:45)
[2018-07-18] MEDS ORDERED: HYDROcodone/Acetaminophen 5/325 mg Tablet PO PRN ×2 (03:45)
[2018-07-18] MEDS ORDERED: Ondansetron ODT 4 MG TAB SL PRN (03:45)
[2018-07-18] MEDS: Piperacillin/Tazobactam 2.25 GM in Sodium Chloride 0.9% 100 ML IVPB SCH ×4 (04:40→20:36)
--- NOTE | 2018-07-18 05:43 | HP ---
CHIEF COMPLAINT: Weakness. HISTORY OF PRESENT ILLNESS: This patient is a 72-year-old female, who presented via the emergency department. The patient apparently supposed to have some labs drawn for her PCP, Dr. Monzon, on Sunday. She passes these labs, but did not make it to get the labs drawn, so she continued fasting and just never made it to the lab. States she has not eaten since Sunday. She presented to the emergency department with the above-mentioned weakness. She also reports that her leg has been sore. She has chronic wound on that leg apparently due to stasis dermatitis, but she can not give much more history than indicating her like as just felt sore. She does state that she has had wound care helping her deal with this in the past, but they are not coming anymore. She denies having any associated fevers or chills, but has continuous drainage from this area. She also thinks she has some wounds on her butt and hip area. REVIEW OF SYSTEMS: GENERAL/CONSTITUTIONAL: The patient believes her weight is down a little bit. She has had no issues with sleep. ENT: No hearing, vision, taste, or smell deficits. GI: No difficulty swallowing. No problems with constipation or diarrhea. CARDIOVASCULAR: No chest pain, palpitations, or edema. PULMONARY: No cough, shortness of breath, or wheezing. : No dysuria or incontinence. She does have some frequency and nocturia greater than 1. SKIN: She has a lesion on her leg and believe she has some in her buttock and hip area. NEUROLOGIC: No numbness, weakness, or tingling. PSYCHIATRIC: No anxiety or depression. ENDOCRINE: No polyuria or polydipsia. All other systems were reviewed and all pertinent positives and negatives mentioned in history of present illness. PAST MEDICAL HISTORY: Morbid obesity, stasis dermatitis with chronic nonhealing ulcer, which has apparently been present for 5 to 6 years, hypertension, gout, pulmonary edema related to diastolic heart failure, possible obstructive sleep apnea, chronic kidney disease stage 3, gastroesophageal reflux. PAST SURGICAL HISTORY: Cataract ectomy. FAMILY HISTORY: Notable for diabetes and coronary artery disease. SOCIAL HISTORY: Nonsmoker, nondrinker, nondrug user. She is not . She lives with her son. She is a full code and her son would be her surrogate decision maker. ALLERGIES: NONE. CURRENT MEDICATIONS: 1. Ferrous sulfate 325 two p.o. daily. 2. Pantoprazole 40 mg daily. 3. Aspirin 81 mg daily. 4. Lasix 20 mg daily. 5. Allopurinol 100 mg t.i.d. 6. Coreg 12.5 b.i.d. PHYSICAL EXAMINATION: VITAL SIGNS: BP 130/56, pulse 77, respirations 18, O2 saturation 100% on room air. GENERAL APPEARANCE: Age-appropriate female. She is obese. She is in no distress. She is awake, alert, and converses appropriately. HEENT: PERRL. No OP lesion. She has thick saliva. NECK: Supple and symmetric. HEART: Regular without murmur. LUNGS: Clear bilaterally with good chest wall expansion and air exchange. No wheezes or rales. ABDOMEN: Obese, soft, nontender, and nondistended. Positive bowel sounds. No masses. No organomegaly. EXTREMITIES: Both lower extremities have some scaling and flaking skin covering the feet. She has onychomycosis and onycholysis. She has a large wound in the left anterior calf, which is oval in shape and several inches in diameter, which is continuously draining some serous fluid onto her bandage. There is a substantial odor emanating from the wound. The remainder of her skin exam, I cannot fully perform at this point, I cannot position her to where I see any additional skin lesions where she is referring to them. We will need to have a more thorough assessment when I can get more nursing intervention to help. LABORATORY DATA: White count is 20,000, hemoglobin 9.1, platelets 228, 75% neutrophils, 15% bands, 3% lymphocytes. She also has polychromasia, anisocytosis, ovalocytes, and bur cells present. Sodium 132, potassium 5.3, chloride 104, CO2 is 15, BUN 43, creatinine 2.29, glucose 82, lactic acid 1.6, calcium 9.0, AST 95, ALT 38, CK is 12, troponin 0.171. BNP 308.5. Urinalysis shows some protein, ketones, large blood, small bilirubin, moderate leukocyte esterase, 25 to 50 white cells, 0 to 3 red cells, 2+ bacteria, 7 to 10 hyaline casts. Chest x-ray showed no evidence of acute cardiopulmonary processes. EKG; sinus rhythm, no evidence of ischemic changes. IMPRESSION AND PLAN: 1. Weakness. The patient has multiple potential reasons for her weakness including urinary tract infection, dehydration, poor p.o. intake of food, and infection in her left lower extremity. 2. Left lower extremity wound with very foul odor emanating from it as well as white count of 20,000, suggesting that this wound is infected. Cultures were sent from the ER. She received vanc, Zosyn, and clindamycin in the emergency department. We will continue with the vanc and Zosyn renally dosed. We will ask Wound Care to evaluate the patient. 3. Dehydration. Apparently, the patient has not eaten in several days thinking she was going to get to the lab to get some fasting labs done, but never made it and simply became dehydrated by not drinking and taking her medications including a diuretic. We will hydrate and allow her to eat. 4. Acute renal insufficiency and acute renal failure. The patient's BUN and creatinine are higher than her baseline and this is the highest creatinine she has had recorded. I suspect it is secondary to dehydration, should improve back to baseline with some fluids. 5. Mild hyponatremia, likely due to the renal disease and dehydration. Continue monitor with fluids. 6. Mild hyperkalemia secondary to the kidney disease and dehydration. Continue monitor with fluids. 7. Hypertension. Continue with her usual home medications. Hold on her Lasix. 8. History of diastolic dysfunction. Again, holding her diuretic in light of what appears to be some clinical dehydration. 9. Anemia. Her hemoglobin is on par with what it has been in the past. She is already on some iron supplementation. 10. Equivocal troponins. I suspect these are negligible in the patient of this age with this renal function. Job ID: [id number]
[2018-07-18 06:36] LABS: Anion Gap 17 mmol/L (10-20); BUN (Urea Nitrogen) 47 mg/dL (9.8-20.1); Calc. Creatinine Clearance 34 mL/min (70-130); Calcium 8.5 mg/dL (7.8-10.44); Carbon Dioxide 15 mmol/L (23-31); Chloride 108 mmol/L (98-107); Estimated GFR-MDRD 24; Glucose 64 mg/dL (83-110); Potassium 4.6 mmol/L (3.5-5.1); Sodium 135 mmol/L (136-145)
[2018-07-18 07:22] LABS: Band 32 % (5-11); Burr Cells SLIGHT = 2-5 cells (100X) (0-1/hpf); Hemoglobin 8.7 g/dL (12.0-16.0); Hypochromia SLIGHT = 6-15 cells (100X) (0-5/hpf); Lymphocytes 5 % (21-51); MDiff Complete? YES; Mean Corpuscular HGB CONC 30.9 g/dL (32.0-36.0); Mean Corpuscular Hemoglobin 28.1 pg (27.0-31.0); Mean Corpuscular Volume 90.9 fL (78.0-98.0); Mean Platelet Volume 7.6 fL (7.4-10.4); Monocytes 2 % (0-10); Neutrophil 61 % (42-75); PLT Morphology Comment Appears Adequate; Platelet Count 191 thou/uL (130-400); Polychromasia SLIGHT = 2-3 cells (100X) (0-2/hpf); RBC Distribution Width 15.5 % (11.5-14.5); Red Blood Cell (RBC) Count 3.11 mill/uL (4.20-5.40); Toxic Granulation SLIGHT; Vacuoles SLIGHT; White Blood Cell (WBC) Count 12.6 thou/uL (4.8-10.8)
[2018-07-18] MEDS: Enoxaparin Sodium 30 MG/0.3 ML SYRINGE SC SCH (09:39)
[2018-07-18] MEDS: DEXTROSE 5% IV SCH ×2 (10:09→22:45)
[2018-07-18] MEDS: WATER IV SCH ×2 (10:09→22:45)
[2018-07-18] MEDS: SODIUM BICARBONATE IV SCH ×2 (10:09→22:45)
--- NOTE | 2018-07-18 11:51 | ULT ---
ULTRASOUND WITH DOPPLER DUPLEX VENOUS LOWER EXTREMITIES BILATERAL: DATE: 07-18-18 HISTORY: 72-year-old female with bilateral lower extremity edema. TECHNIQUE: Color flow Doppler, spectral waveform analysis of pulsed Doppler, and delgado-scale imaging with dino daly and augmentation, were used to evaluate the bilateral common femoral, femoral, popliteal, international trade compliance manager ior tibial, and superficial femoral, veins; and the proximal portions of the profunda femoral and gre ater saphenous, veins. FINDINGS: Because of overlying bandaging, the RIGHT popliteal vein; and the LEFT common femoral, greater saphen ous, profunda femoral, proximal segment of femoral, popliteal, and posterior tibial veins, could not be imaged. There is no evidence of DVT in the RIGHT common femoral, proximal greater saphenous, proximal profund a femoral, femoral, and posterior tibial veins. There is no DVT in the mid and distal portions of the LEFT femoral vein. IMPRESSION: 1. Very limited study. 2. Most of the veins of the left lower extremity could not be imaged because of overlying bandages. 3. Right popliteal vein could not be imaged. 4. No deep venous thrombosis identified in the rest of the veins of the right lower extremity. JN R POS: BEL
[2018-07-18] MEDS: Acetaminophen 325 MG TAB PO PRN (18:39)
[2018-07-18] MEDS: Vancomycin HCl 750 MG in Sodium Chloride 0.9% 250 ML 250 ML IVPB SCH (23:31)
--- NOTE | 2018-07-19 01:21 | CON ---
DATE OF CONSULTATION: 07/18/2018 REASON FOR CONSULTATION: Bacteremia. HISTORY OF PRESENT ILLNESS: A 72-year-old, whom I had seen in March 2018 when she presented with a history of chronic ulcers in lower extremities associated with vascular disease, probably a combination of arterial and venous insufficiency, gout, obesity, and type 2 diabetes. The patient has been managed before for stasis dermatitis and venous ulcerations, and then in March, she presented with lethargy. She had abnormal urinalysis and positive urine culture. At that time, she had coagulase negative Staphylococcus in the blood culture, felt to represent a contamination of the sample. She had an E coli in the urine culture, which was broadly susceptible. The patient at this time presents with weakness generalized and soreness in the legs. She denied any other issues. She particularly denied respiratory symptoms, back pain, genitourinary symptoms, or diarrhea. She had no neurological abnormalities either. Currently, she is awake, appears in no distress. She again denies any genitourinary symptoms. She has mild to moderate pain in the lower extremities which is chronic. PAST MEDICAL HISTORY: Includes obesity, stasis dermatitis, venous insufficiency, venous ulcerations particular in the left leg, gout, episodes of pulmonary edema probably with diastolic dysfunction, obstructive sleep apnea, previous UTI. ALLERGIES: NONE. SOCIAL HISTORY: Never smoker. Lives with son in the area. FAMILY HISTORY: Type 2 diabetes. CURRENT MEDICATIONS: 1. Tylenol. 2. Enoxaparin. 3. Zosyn. 4. Vancomycin. PHYSICAL EXAMINATION: VITAL SIGNS: Temperature 98.2, BP 120/59, pulse 89, respirations 20, O2 saturation 98%. SKIN: Shows the ulcers in lower extremities in the gluteal region. Those are quite shallow particularly in the gluteal region. The ones in the left leg are measured about 5 x 3 cm, one in the other is round-shaped measuring about 3 cm, and the oval shaped is quite shallow and has very little undermining, a little bit of red tissue at the lower end, the one medially located to it is quite red and fresh with granulation tissue, evidently a lot of the ulcers have reduced in size if one looks at the remainder aspect of the ankle where there are signs of healing. The right ankle has more extensive areas of ulceration with a necrotic base and need better wound care management. She has a peripheral IV access and is urinating in a diaper. GENERAL: She is awake and oriented. HEENT: Protruding lower teeth as noted before. The oral cavity is not remarkable. She has normal ocular movements, just somewhat distorted mandibular closure with prognathism. NECK: Supple without jugular venous distention. LUNGS: Symmetric. Clear breath sounds. HEART: S1 and S2. Diminished heart sounds. No S3 or S4. ABDOMEN: With a very prominent panniculus, but no tenderness. No bladder distention. EXTREMITIES: She is able to move extremities, but quite a bit of limitation. NEUROLOGIC: She is awake, knows her name, follows commands. She has good sense of humor. LABORATORY DATA: White cell count is 20,000, down to 12.6, hemoglobin 8.7, MCV 90, platelets 191, 32% bands. Chemistry with a sodium 135, creatinine 2.41, GFR 24. This is a bit higher than her baseline. AST was 95, ALT was 38, bilirubin 0.7, alkaline phosphatase is 98, albumin 2.9. Microbiology with we have 2 sets of blood cultures with a gram-negative le. A urine culture with presumptive E coli. This probably reflects the same organism in both blood and urine. ASSESSMENT: 1. Obstructive sleep apnea. 2. Morbid obesity. 3. Stasis ulcerations in the lower extremities. 4. Recurrent urinary tract infections, now with invasive features and evidence of bacteremia. We will order a CT stone protocol and continue antimicrobial therapy. DC vancomycin. Most likely, this will be the same strain which was quite susceptible to various antimicrobials and would allow us to transition to oral quinolones for discharge planning. Would verify postvoid residual. Evidently, if there are abnormalities that may need Urology consultation after the CT stone protocol, then we will proceed with that. Job ID: [id number]
[2018-07-19] MEDS: Acetaminophen 325 MG TAB PO PRN ×2 (01:36→21:46)
[2018-07-19] MEDS: Piperacillin/Tazobactam 2.25 GM in Sodium Chloride 0.9% 100 ML IVPB SCH ×4 (03:17→21:47)
[2018-07-19 07:36] LABS: Anion Gap 12 mmol/L (10-20); BUN (Urea Nitrogen) 51 mg/dL (9.8-20.1); Calc. Creatinine Clearance 32 mL/min (70-130); Calcium 7.9 mg/dL (7.8-10.44); Carbon Dioxide 19 mmol/L (23-31); Chloride 106 mmol/L (98-107); Estimated GFR-MDRD 22; Glucose 88 mg/dL (83-110); Potassium 4.3 mmol/L (3.5-5.1); Sodium 133 mmol/L (136-145)
[2018-07-19 07:39] LABS: #Eosinphils 0.3 thou/uL (0.0-0.7); #Lymphocytes 1.3 thou/uL (1.20-3.40); #Monocytes 0.8 thou/uL (0.11-0.59); %Basophils 0.3 % (0.0-1.0); %Eosinophils 3.8 % (0.0-10.0); %Lymphocytes 15.3 % (21.0-51.0); %Monocytes 9.4 % (0.0-10.0); %Neutrophils 71.2 % (42.0-75.0); Hemoglobin 7.3 g/dL (12.0-16.0); Mean Corpuscular Hemoglobin 28.3 pg (27.0-31.0); Mean Corpuscular Volume 88.5 fL (78.0-98.0); Mean Platelet Volume 8.5 fL (7.4-10.4); Platelet Count 175 thou/uL (130-400); RBC Distribution Width 15.5 % (11.5-14.5); Red Blood Cell (RBC) Count 2.58 mill/uL (4.20-5.40); White Blood Cell (WBC) Count 8.5 thou/uL (4.8-10.8)
[2018-07-19] MEDS: DEXTROSE 5% IV SCH (09:05)
[2018-07-19] MEDS: SODIUM BICARBONATE IV SCH (09:05)
[2018-07-19] MEDS: Enoxaparin Sodium 30 MG/0.3 ML SYRINGE SC SCH (09:05)
[2018-07-19] MEDS: WATER IV SCH (09:05)
[2018-07-19] MEDS ORDERED: Acetaminophen ER (8hr) 650 MG TAB PO PRN (09:07)
[2018-07-19] MEDS ORDERED: Folic Acid 1 MG TAB PO SCH (09:15)
[2018-07-19] MEDS ORDERED: Cyanocobalamin (Vitamin B-12) 1,000 MCG TAB PO SCH (09:15)
[2018-07-19 10:54] LABS: Hemoglobin 9.5 g/dL (12.0-16.0)
[2018-07-19 10:56] LABS: Iron 18 ug/dL (50-170); Iron Binding Capacity, Total 113 mcg/dL (265-497)
--- NOTE | 2018-07-19 11:51 | CT ---
CT ABDOMEN AND PELVIS WITHOUT CONTRAST: 07/19/2018 PROVIDED CLINICAL HISTORY: Urinary tract infection. FINDINGS: The visualized lung bases are free of significant opacity. Bibasilar subsegmental atelectatic change s are seen. Evaluation is limited by patient respiratory motion. The solid abdominal organs are suboptimally adonay luated in the absence of IV contrast but demonstrate a grossly unremarkable unenhanced CT appearance. There is no evidence for urinary tract calculi. There is a small fat-containing umbilical hernia. There is no evidence for bowel obstruction. No fr ee fluid, free air, or localized inflammatory fat stranding is evident. Vascular calcifications are seen. Degenerative changes involve the spine. Coarse calcification over lying the dome of the urinary bladder presumably reflects a calcified uterine fibroid. IMPRESSION: No definite evidence for an acute process, with limitations as above. POS: FRANCIE
[2018-07-19] MEDS ORDERED: Allopurinol 100 MG TAB PO SCH (15:00)
--- NOTE | 2018-07-19 16:38 | PQF ---
CLINICAL DOCUMENTATION IMPROVEMENT CLARIFICATION FORM: ICD-10 Updated PLEASE DO AN ADDENDUM TO THE PROGRESS NOTE WITH ANY DOCUMENTATION UPDATES OR ADDITIONS AND CARRY THROUGH TO DC SUMMARY. THANK YOU. DATE: 07/19/18 ATTN: Dr. Hutton Please exercise your independent, professional judgment in responding to the clarification form. Clinical indicators are provided on the bottom of this form for your review Please check appropriate box(es): [ ] Sepsis due to: [ ] Severe sepsis with acute organ dysfunction of: [ ] Localized infection without sepsis [ ] Other diagnosis [ ] Unable to determine In addition, please specify: Present on Admission (POA): [ ] Yes [ ] No [ ] Unable to determine For continuity of documentation, please document condition throughout progress notes and discharge summary. Thank You. CLINICAL INDICATORS - SIGNS / SYMPTOMS / LABS ER Record 07/17: BP 131/52 Pulse 105 Resp 18 Temp 99.4 H&P 07/17: White count 20,000 Weakness Left lower extremity wound with foul odor Acute renal failure. I suspect it is secondary to dehydration. ID CONSULT 07/18: Microbiology with 2 sets of blood cultures with a gram- negative le A urine culture with presumptive Ecoli. Recurrent urinary tract infections, now w/ invasive features & evidence of bacteremia RISKS H&P 07/17: HX Morbid obesity; stasis dermatitis with chronic nonhealing ulcer. Multiple reasons for weakness including urinary tract infection, dehydration, poor po intake of food, & infection in her left lower extremity. TREATMENT: ORDERS 07/17 FOR CULTURE & GS LLE DM WOUND; BLOOD CX'S; URINE CX ID CONSULT ORDER 07/18: IV ZOSYN 2.25 GM IV ORDER 07/18: IV VANCOMYCIN HCL 750 MG IV Thank you, Belinda (This form is maintained as a part of the permanent medical record) 2014 [facility]. All Rights Reserved Belinda Deras RN, BSN [email or web address] Office: [phone] [facility]
[2018-07-19] MEDS ORDERED: Carvedilol 6.25 MG TAB PO SCH (17:00)
[2018-07-19] MEDS: Carvedilol 3.125 MG TAB PO SCH (17:01)
--- NOTE | 2018-07-19 23:03 | PDOC.PN ---
- Subjective Encounter Start Date: 07/19/18 Encounter Start Time: 14:00 Patient seen and examined for Sepsis. Feels gen weak. No N/V/CP/SOB. No other complaints. No overnight events - Objective Resuscitation Status - Order Detail: 07/18/18 01:56 Resuscitation Status Routine Resuscitation Status: FULL: Full Resuscitation Discussed with: Patient NEGRO Reviewed: Yes Vital Signs & Weight: Vital Signs (12 hours) Temp Pulse Resp BP Pulse Ox 07/19/18 20:00 102.7 F H 93 20 96 07/19/18 15:55 99.8 F H 92 16 106/56 L 100 Weight Admit Weight 222 lb Weight 222 lb I&O: 07/18/18 07/19/18 07/20/18 06:59 06:59 06:59 Intake Total 1121 Balance 1121 Result Diagrams: 07/19/18 10:31 07/19/18 06:34 Additional Labs: Accuchecks 07/19/18 07/19/18 07/19/18 20:53 16:00 11:18 POC Glucose 116 H 117 H 101 07/19/18 05:20 POC Glucose 97 Microbiology 07/17/18 22:15 Urine Straight Catheter Urine Culture - Final Escherichia coli 07/17/18 20:41 Venous blood - Left Hand Blood Culture - Final Escherichia coli 07/17/18 19:54 Venous blood - Right Arm Blood Culture - Final Escherichia coli Radiology Reviewed by me: Yes (CT stone - no obstruction) EKG Reviewed by me: Yes (Tele SR earlier) Phys Exam - Physical Examination Constitutional: NAD Respiratory: no wheezing, no rales, no rhonchi dec AE at bases, No accessory muscle use Cardiovascular: RRR, no rub no heaves/pulsations Gastrointestinal: soft, non-tender, no distention, positive bowel sounds Musculoskeletal: edema present dressing over venous ulcers + Neurological: non-focal, normal sensation, moves all 4 limbs Psychiatric: normal affect, A&O x 3 Skin: no rash Dx/Plan (1) Sepsis with acute organ dysfunction Code(s): A41.9 - SEPSIS, UNSPECIFIED ORGANISM; R65.20 - SEVERE SEPSIS WITHOUT SEPTIC SHOCK Status: Acute Comment: E coli bacteremia (2) Acute renal failure superimposed on stage 3 chronic kidney disease Code(s): N17.9 - ACUTE KIDNEY FAILURE, UNSPECIFIED; N18.3 - CHRONIC KIDNEY DISEASE, STAGE 3 (MODERATE) Status: Acute Qualifiers: (3) UTI (urinary tract infection) Status: Acute Comment: E coli with E coli bacteremia (4) Venous ulcer of left leg Code(s): I83.029 - VARICOSE VEINS OF LEFT LOWER EXTREMITY W ULCER OF UNSP SITE Status: Acute (5) Elevated troponin Code(s): R74.8 - ABNORMAL LEVELS OF OTHER SERUM ENZYMES Status: Acute Comment: due to demand ischemia/Sepsis (6) Hyperkalemia Code(s): E87.5 - HYPERKALEMIA Status: Acute (7) Chronic diastolic (congestive) heart failure Code(s): I50.32 - CHRONIC DIASTOLIC (CONGESTIVE) HEART FAILURE Status: Chronic Comment: EF 50-55%, ACC Stage C (8) Morbid obesity Code(s): E66.01 - MORBID (SEVERE) OBESITY DUE TO EXCESS CALORIES Status: Chronic (9) PAD (peripheral artery disease) Code(s): I73.9 - PERIPHERAL VASCULAR DISEASE, UNSPECIFIED Status: Chronic (10) Venous insufficiency of both lower extremities Code(s): I87.2 - VENOUS INSUFFICIENCY (CHRONIC) (PERIPHERAL) Status: Chronic (11) Anemia Code(s): D64.9 - ANEMIA, UNSPECIFIED Status: Chronic Qualifiers: Anemia type: due to chronic kidney disease - Plan cont current plan of care, continue antibiotics, PT/OT, out of bed/ambulate, DVT proph w/lovenox DC Vancomycin and Zosyn -: Start IV Ceftriaxone -: Iron profile, AM labs, Cont other meds as below -: Cont current IVF -: Cont Coreg Review of Systems - Medications/Allergies Allergies/Adverse Reactions: Allergies Allergy/AdvReac Type Severity Reaction Status Date / Time No Known Drug Allergies Allergy Verified 01/24/17 20:06 Medications: Current Medications Acetaminophen (Tylenol) 650 mg PO Q6H PRN PRN Reason: FEVER/PAIN Last Admin: 07/19/18 21:46 Dose: 650 mg Carvedilol (Coreg) 3.125 mg PO BID-WM [facility] Last Admin: 07/19/18 17:01 Dose: Not Given Cyanocobalamin (Vitamin B-12) 1,000 mcg PO DAILY [facility] Fish Oil (Fish Oil) 1,000 mg PO DAILY [facility] Folic Acid (Folvite) 1 mg PO DAILY [facility] Piperacillin Sod/Tazobactam (Sod 2.25 gm/ Sodium Chloride) 100 mls @ 200 mls/ hr IVPB 0400,1000,1600,2200 [facility] Last Admin: 07/19/18 21:47 Dose: 100 mls Vancomycin HCl 750 mg/ Sodium (Chloride) 250 mls @ 250 mls/hr IVPB 2359 [facility] Last Admin: 07/18/18 23:31 Dose: 250 mls Sodium Bicarbonate 100 meq/ (Dextrose/Water) 1,000 mls @ 75 mls/hr IV .[id number] [facility] Last Admin: 07/19/18 09:05 Dose: 1,000 mls Pantoprazole Sodium (Protonix) 40 mg PO DAILY [facility] Sodium Chloride (Flush - Normal Saline) 10 ml IVF Q12HR [facility] Last Admin: 07/19/18 21:46 Dose: 10 ml Sodium Chloride (Flush - Normal Saline) 10 ml IVF PRN PRN PRN Reason: Saline Flush
[2018-07-19 23:35] LABS: Vancomycin, Trough 18.2 ug/mL
[2018-07-20] MEDS: Vancomycin HCl 750 MG in Sodium Chloride 0.9% 250 ML 250 ML IVPB SCH (00:22)
[2018-07-20] MEDS: Acetaminophen 325 MG TAB PO PRN (02:11)
[2018-07-20] MEDS: Piperacillin/Tazobactam 2.25 GM in Sodium Chloride 0.9% 100 ML IVPB SCH (04:02)
[2018-07-20] MEDS: SODIUM BICARBONATE IV SCH ×2 (04:02→08:45)
[2018-07-20] MEDS: DEXTROSE 5% IV SCH ×2 (04:02→08:45)
[2018-07-20] MEDS: WATER IV SCH ×2 (04:02→08:45)
[2018-07-20 08:13] LABS: #Basophils 0.1 thou/uL (0.0-0.2); #Eosinphils 0.2 thou/uL (0.0-0.7); #Lymphocytes 1.6 thou/uL (1.20-3.40); #Monocytes 1.1 thou/uL (0.11-0.59); #Neutrophils 6.5 thou/uL (1.40-6.50); %Basophils 0.5 % (0.0-1.0); %Eosinophils 2.3 % (0.0-10.0); %Lymphocytes 17.1 % (21.0-51.0); %Monocytes 11.5 % (0.0-10.0); %Neutrophils 68.6 % (42.0-75.0); Hemoglobin 7.3 g/dL (12.0-16.0); Mean Corpuscular HGB CONC 30.5 g/dL (32.0-36.0); Mean Corpuscular Hemoglobin 27.4 pg (27.0-31.0); Mean Corpuscular Volume 89.8 fL (78.0-98.0); Mean Platelet Volume 8.6 fL (7.4-10.4); Platelet Count 180 thou/uL (130-400); RBC Distribution Width 15.8 % (11.5-14.5); Red Blood Cell (RBC) Count 2.66 mill/uL (4.20-5.40); White Blood Cell (WBC) Count 9.4 thou/uL (4.8-10.8)
[2018-07-20 08:26] LABS: Anion Gap 11 mmol/L (10-20); BUN (Urea Nitrogen) 48 mg/dL (9.8-20.1); Calc. Creatinine Clearance 32 mL/min (70-130); Calcium 7.9 mg/dL (7.8-10.44); Carbon Dioxide 22 mmol/L (23-31); Chloride 107 mmol/L (98-107); Estimated GFR-MDRD 22; Glucose 106 mg/dL (83-110); Sodium 136 mmol/L (136-145)
[2018-07-20] MEDS: Carvedilol 3.125 MG TAB PO SCH (08:43)
[2018-07-20] MEDS: Fish Oil 1,000 MG CAP PO SCH (08:44)
[2018-07-20] MEDS: Cyanocobalamin (Vitamin B-12) 1,000 MCG TAB PO SCH (08:44)
[2018-07-20] MEDS: Folic Acid 1 MG TAB PO SCH (08:44)
[2018-07-20] MEDS: cefTRIAXone\\ROCEPHIN 2 GM in Sodium Chloride 0.9% 100 ML IVPB SCH (08:45)
--- NOTE | 2018-07-20 14:13 | PDOC.PN ---
- Subjective Encounter Start Date: 07/20/18 Encounter Start Time: 11:30 Patient seen and examined for Sepsis. Feels gen weak and fatigued. No other complaints. No overnight events - Objective Resuscitation Status - Order Detail: 07/18/18 01:56 Resuscitation Status Routine Resuscitation Status: FULL: Full Resuscitation Discussed with: Patient MAR Reviewed: Yes Vital Signs & Weight: Vital Signs (12 hours) Temp Pulse Pulse Resp BP BP Pulse Ox 07/20/18 13:30 97.5 F L 77 16 116/71 100 07/20/18 10:44 97.6 F 69 16 108/70 100 07/20/18 10:29 97.4 F L 72 16 94/58 L 100 07/20/18 09:00 100 07/20/18 08:22 97.8 F 71 18 108/66 100 07/20/18 05:48 98 F 71 16 113/65 96 07/20/18 04:06 98.3 F 07/20/18 02:18 101.3 F H Weight Admit Weight 222 lb Weight 222 lb I&O: 07/19/18 07/20/18 07/21/18 06:59 06:59 06:59 Intake Total 1121 350 Balance 1121 350 Result Diagrams: 07/20/18 07:58 07/20/18 07:58 Additional Labs: Accuchecks 07/20/18 07/20/18 07/19/18 11:39 05:33 20:53 POC Glucose 125 H 100 116 H 07/19/18 16:00 POC Glucose 117 H Phys Exam - Physical Examination Constitutional: NAD Respiratory: no wheezing, no rhonchi Cardiovascular: RRR, no rub Gastrointestinal: soft, non-tender, positive bowel sounds Neurological: moves all 4 limbs Dx/Plan (1) Sepsis with acute organ dysfunction Code(s): A41.9 - SEPSIS, UNSPECIFIED ORGANISM; R65.20 - SEVERE SEPSIS WITHOUT SEPTIC SHOCK Status: Acute Comment: E coli bacteremia (2) Acute renal failure superimposed on stage 3 chronic kidney disease Code(s): N17.9 - ACUTE KIDNEY FAILURE, UNSPECIFIED; N18.3 - CHRONIC KIDNEY DISEASE, STAGE 3 (MODERATE) Status: Acute Qualifiers: (3) UTI (urinary tract infection) Status: Acute Comment: E coli with E coli bacteremia (4) Venous ulcer of left leg Code(s): I83.029 - VARICOSE VEINS OF LEFT LOWER EXTREMITY W ULCER OF UNSP SITE Status: Acute (5) Elevated troponin Code(s): R74.8 - ABNORMAL LEVELS OF OTHER SERUM ENZYMES Status: Acute Comment: due to demand ischemia/Sepsis (6) Hyperkalemia Code(s): E87.5 - HYPERKALEMIA Status: Acute (7) Chronic diastolic (congestive) heart failure Code(s): I50.32 - CHRONIC DIASTOLIC (CONGESTIVE) HEART FAILURE Status: Chronic Comment: EF 50-55%, ACC Stage C (8) Morbid obesity Code(s): E66.01 - MORBID (SEVERE) OBESITY DUE TO EXCESS CALORIES Status: Chronic (9) PAD (peripheral artery disease) Code(s): I73.9 - PERIPHERAL VASCULAR DISEASE, UNSPECIFIED Status: Chronic (10) Venous insufficiency of both lower extremities Code(s): I87.2 - VENOUS INSUFFICIENCY (CHRONIC) (PERIPHERAL) Status: Chronic (11) Anemia Code(s): D64.9 - ANEMIA, UNSPECIFIED Status: Chronic Qualifiers: Anemia type: due to chronic kidney disease - Plan PT/OT, out of bed/ambulate Transfuse 1 unit PRBC due to hypotension/worsening renal failure -: AM labs -: DC Coreg -: Cont Rocephin -: Cont other meds as below, Not on Heparin/Lovenox due to Anemia Review of Systems - Review of Systems Cardiovascular: negative: chest pain, palpitations, orthopnea, paroxysmal nocturnal dyspnea, edema, light headedness, other Gastrointestinal: negative: Nausea, Vomiting, Abdominal Pain, Diarrhea, Constipation, Melena, Hematochezia, Other - Medications/Allergies Allergies/Adverse Reactions: Allergies Allergy/AdvReac Type Severity Reaction Status Date / Time No Known Drug Allergies Allergy Verified 01/24/17 20:06 Medications: Current Medications Acetaminophen (Tylenol) 650 mg PO Q6H PRN PRN Reason: FEVER/PAIN Last Admin: 07/20/18 02:11 Dose: 650 mg Cyanocobalamin (Vitamin B-12) 1,000 mcg PO DAILY [facility] Last Admin: 07/20/18 08:44 Dose: 1,000 mcg Fish Oil (Fish Oil) 1,000 mg PO DAILY [facility] Last Admin: 07/20/18 08:44 Dose: 1,000 mg Folic Acid (Folvite) 1 mg PO DAILY [facility] Last Admin: 07/20/18 08:44 Dose: 1 mg Ceftriaxone Sodium 2 gm/ (Sodium Chloride) 100 mls @ 200 mls/hr IVPB 0800 [facility] Last Admin: 07/20/18 08:45 Dose: 100 mls Sodium Bicarbonate 100 meq/ (Dextrose/Water) 1,000 mls @ 50 mls/hr IV .Q20H [facility] Last Admin: 07/20/18 08:45 Dose: Not Given Pantoprazole Sodium (Protonix) 40 mg PO DAILY [facility] Last Admin: 07/20/18 08:44 Dose: 40 mg Sodium Chloride (Flush - Normal Saline) 10 ml IVF Q12HR [facility] Last Admin: 07/20/18 08:45 Dose: Not Given Sodium Chloride (Flush - Normal Saline) 10 ml IVF PRN PRN PRN Reason: Saline Flush
[2018-07-20] MEDS ORDERED: Enoxaparin Sodium 30 MG/0.3 ML SYRINGE SC SCH (21:00)
[2018-07-21] MEDS: Acetaminophen 325 MG TAB PO PRN (00:12)
[2018-07-21] MEDS: SODIUM BICARBONATE IV SCH (06:01)
[2018-07-21] MEDS: WATER IV SCH (06:01)
[2018-07-21] MEDS: DEXTROSE 5% IV SCH (06:01)
[2018-07-21] MEDS: Cyanocobalamin (Vitamin B-12) 1,000 MCG TAB PO SCH (08:26)
[2018-07-21] MEDS: Folic Acid 1 MG TAB PO SCH (08:26)
[2018-07-21] MEDS: Fish Oil 1,000 MG CAP PO SCH (08:26)
[2018-07-21] MEDS: cefTRIAXone\\ROCEPHIN 2 GM in Sodium Chloride 0.9% 100 ML IVPB SCH (08:27)
[2018-07-21 08:57] LABS: #Eosinphils 0.5 thou/uL (0.0-0.7); #Lymphocytes 1.6 thou/uL (1.20-3.40); #Monocytes 0.9 thou/uL (0.11-0.59); %Basophils 0.3 % (0.0-1.0); %Eosinophils 5.2 % (0.0-10.0); %Lymphocytes 17.5 % (21.0-51.0); %Monocytes 10.2 % (0.0-10.0); %Neutrophils 66.9 % (42.0-75.0); Mean Corpuscular HGB CONC 30.9 g/dL (32.0-36.0); Mean Corpuscular Hemoglobin 27.7 pg (27.0-31.0); Mean Corpuscular Volume 89.5 fL (78.0-98.0); Mean Platelet Volume 8.5 fL (7.4-10.4); Platelet Count 197 thou/uL (130-400); RBC Distribution Width 15.6 % (11.5-14.5); Red Blood Cell (RBC) Count 3.24 mill/uL (4.20-5.40)
[2018-07-21 09:18] LABS: Anion Gap 13 mmol/L (10-20); BUN (Urea Nitrogen) 43 mg/dL (9.8-20.1); Calc. Creatinine Clearance 36 mL/min (70-130); Calcium 8.2 mg/dL (7.8-10.44); Carbon Dioxide 23 mmol/L (23-31); Chloride 106 mmol/L (98-107); Estimated GFR-MDRD 26; Glucose 123 mg/dL (83-110); Potassium 3.7 mmol/L (3.5-5.1); Sodium 138 mmol/L (136-145)
[2018-07-21] MEDS ORDERED: traMADol HCl 50 MG TAB PO PRN (11:22)
--- NOTE | 2018-07-21 21:12 | PDOC.PN ---
- Subjective Encounter Start Date: 07/21/18 Encounter Start Time: 08:30 Patient seen and examined. Feels better after blood transfusion. No new complaints. No overnight events - Objective Resuscitation Status - Order Detail: 07/18/18 01:56 Resuscitation Status Routine Resuscitation Status: FULL: Full Resuscitation Discussed with: Patient NEGRO Reviewed: Yes Vital Signs & Weight: Vital Signs (12 hours) Temp Pulse Resp BP Pulse Ox 07/21/18 16:00 98.0 F 84 20 134/70 100 07/21/18 12:12 98.1 F 81 20 121/72 98 Weight Admit Weight 222 lb Weight 222 lb I&O: 07/20/18 07/21/18 07/22/18 06:59 06:59 06:59 Intake Total 2390 860 Output Total 1150 100 Balance 1240 760 Result Diagrams: 07/22/18 06:27 07/22/18 06:27 Additional Labs: Accuchecks 07/21/18 07/21/18 07/21/18 16:02 11:12 04:43 POC Glucose 133 H 125 H 129 H Phys Exam - Physical Examination Constitutional: NAD Respiratory: no wheezing, no rhonchi Cardiovascular: RRR, no rub Gastrointestinal: soft, non-tender, positive bowel sounds Musculoskeletal: no edema Neurological: moves all 4 limbs Dx/Plan (1) Sepsis with acute organ dysfunction Code(s): A41.9 - SEPSIS, UNSPECIFIED ORGANISM; R65.20 - SEVERE SEPSIS WITHOUT SEPTIC SHOCK Status: Acute Comment: E coli bacteremia (2) Acute renal failure superimposed on stage 3 chronic kidney disease Code(s): N17.9 - ACUTE KIDNEY FAILURE, UNSPECIFIED; N18.3 - CHRONIC KIDNEY DISEASE, STAGE 3 (MODERATE) Status: Acute Qualifiers: (3) UTI (urinary tract infection) Status: Acute Comment: E coli with E coli bacteremia (4) Venous ulcer of left leg Code(s): I83.029 - VARICOSE VEINS OF LEFT LOWER EXTREMITY W ULCER OF UNSP SITE Status: Acute (5) Elevated troponin Code(s): R74.8 - ABNORMAL LEVELS OF OTHER SERUM ENZYMES Status: Acute Comment: due to demand ischemia/Sepsis (6) Hyperkalemia Code(s): E87.5 - HYPERKALEMIA Status: Acute (7) Chronic diastolic (congestive) heart failure Code(s): I50.32 - CHRONIC DIASTOLIC (CONGESTIVE) HEART FAILURE Status: Chronic Comment: EF 50-55%, ACC Stage C (8) Morbid obesity Code(s): E66.01 - MORBID (SEVERE) OBESITY DUE TO EXCESS CALORIES Status: Chronic (9) PAD (peripheral artery disease) Code(s): I73.9 - PERIPHERAL VASCULAR DISEASE, UNSPECIFIED Status: Chronic (10) Venous insufficiency of both lower extremities Code(s): I87.2 - VENOUS INSUFFICIENCY (CHRONIC) (PERIPHERAL) Status: Chronic (11) Anemia Code(s): D64.9 - ANEMIA, UNSPECIFIED Status: Chronic Qualifiers: Anemia type: due to chronic kidney disease - Plan DVT proph w/SCDs Cont Atbx -: Cont IVF -: AM labs -: Cont current meds as below -: DC in AM if stable Review of Systems - Review of Systems Respiratory: negative: Cough, Dry, Shortness of Breath, Hemoptysis, SOB with Excertion, Pleuritic Pain, Sputum, Wheezing Cardiovascular: negative: chest pain, palpitations, orthopnea, paroxysmal nocturnal dyspnea, edema, light headedness, other - Medications/Allergies Allergies/Adverse Reactions: Allergies Allergy/AdvReac Type Severity Reaction Status Date / Time No Known Drug Allergies Allergy Verified 01/24/17 20:06 Medications: Current Medications Acetaminophen (Tylenol) 650 mg PO Q6H PRN PRN Reason: FEVER/PAIN Last Admin: 07/21/18 00:12 Dose: 650 mg Cyanocobalamin (Vitamin B-12) 1,000 mcg PO DAILY [facility] Last Admin: 07/21/18 08:26 Dose: 1,000 mcg Fish Oil (Fish Oil) 1,000 mg PO DAILY [facility] Last Admin: 07/21/18 08:26 Dose: 1,000 mg Folic Acid (Folvite) 1 mg PO DAILY [facility] Last Admin: 07/21/18 08:26 Dose: 1 mg Ceftriaxone Sodium 2 gm/ (Sodium Chloride) 100 mls @ 200 mls/hr IVPB 0800 [facility] Last Admin: 07/21/18 08:27 Dose: 100 mls Sodium Bicarbonate 100 meq/ (Dextrose/Water) 1,000 mls @ 50 mls/hr IV .Q20H [facility] Last Admin: 07/21/18 06:01 Dose: 1,000 mls Pantoprazole Sodium (Protonix) 40 mg PO DAILY [facility] Last Admin: 07/21/18 08:26 Dose: 40 mg Sodium Chloride (Flush - Normal Saline) 10 ml IVF Q12HR [facility] Last Admin: 07/21/18 20:54 Dose: Not Given Sodium Chloride (Flush - Normal Saline) 10 ml IVF PRN PRN PRN Reason: Saline Flush Tramadol HCl (Ultram) 50 mg PO Q6H PRN PRN Reason: Moderate Pain (4-6)
[2018-07-22] MEDS: WATER IV SCH ×3 (01:42→20:50)
[2018-07-22] MEDS: SODIUM BICARBONATE IV SCH ×3 (01:42→20:50)
[2018-07-22] MEDS: DEXTROSE 5% IV SCH ×3 (01:42→20:50)
[2018-07-22 06:37] LABS: #Eosinphils 0.4 thou/uL (0.0-0.7); #Lymphocytes 1.5 thou/uL (1.20-3.40); %Basophils 0.5 % (0.0-1.0); %Eosinophils 4.9 % (0.0-10.0); %Lymphocytes 19.4 % (21.0-51.0); %Neutrophils 63.1 % (42.0-75.0); Hemoglobin 8.1 g/dL (12.0-16.0); Mean Corpuscular HGB CONC 31.1 g/dL (32.0-36.0); Mean Corpuscular Hemoglobin 27.6 pg (27.0-31.0); Mean Platelet Volume 8.3 fL (7.4-10.4); Platelet Count 215 thou/uL (130-400); RBC Distribution Width 15.5 % (11.5-14.5); Red Blood Cell (RBC) Count 2.92 mill/uL (4.20-5.40); White Blood Cell (WBC) Count 7.9 thou/uL (4.8-10.8)
[2018-07-22 06:54] LABS: Anion Gap 10 mmol/L (10-20); BUN (Urea Nitrogen) 34 mg/dL (9.8-20.1); Calc. Creatinine Clearance 43 mL/min (70-130); Calcium 8.2 mg/dL (7.8-10.44); Carbon Dioxide 27 mmol/L (23-31); Chloride 107 mmol/L (98-107); Estimated GFR-MDRD 32; Glucose 105 mg/dL (83-110); Potassium 3.8 mmol/L (3.5-5.1); Sodium 140 mmol/L (136-145)
[2018-07-22] MEDS: Folic Acid 1 MG TAB PO SCH (08:26)
[2018-07-22] MEDS: cefTRIAXone\\ROCEPHIN 2 GM in Sodium Chloride 0.9% 100 ML IVPB SCH (08:26)
[2018-07-22] MEDS: Fish Oil 1,000 MG CAP PO SCH (08:26)
[2018-07-22] MEDS: Cyanocobalamin (Vitamin B-12) 1,000 MCG TAB PO SCH (08:26)
--- NOTE | 2018-07-22 21:04 | PDOC.PN ---
- Subjective Encounter Start Date: 07/22/18 Encounter Start Time: 12:30 Patient seen and examined for Sepsis. feels better. No CP/SOB/fever. No new complaints. No overnight events - Objective Resuscitation Status - Order Detail: 07/18/18 01:56 Resuscitation Status Routine Resuscitation Status: FULL: Full Resuscitation Discussed with: Patient MAR Reviewed: Yes Vital Signs & Weight: Vital Signs (12 hours) Temp Pulse Resp BP Pulse Ox Pulse Ox 07/22/18 19:57 98.8 F 94 16 100/60 91 L 07/22/18 15:00 98.3 F 81 16 148/75 H 97 07/22/18 11:39 98.1 F 84 16 143/72 H 98 07/22/18 10:28 97 Weight Admit Weight 222 lb Weight 222 lb I&O: 07/21/18 07/22/18 07/23/18 06:59 06:59 06:59 Intake Total 2390 1860 Output Total 1150 1400 750 Balance 1240 460 -750 Result Diagrams: 07/22/18 06:27 07/22/18 06:27 Additional Labs: Accuchecks 07/22/18 07/22/18 07/22/18 20:02 15:58 11:39 POC Glucose 109 129 H 105 07/22/18 07/21/18 05:28 20:31 POC Glucose 109 130 H Dx/Plan (1) Sepsis with acute organ dysfunction Code(s): A41.9 - SEPSIS, UNSPECIFIED ORGANISM; R65.20 - SEVERE SEPSIS WITHOUT SEPTIC SHOCK Status: Acute Comment: E coli bacteremia (2) Acute renal failure superimposed on stage 3 chronic kidney disease Code(s): N17.9 - ACUTE KIDNEY FAILURE, UNSPECIFIED; N18.3 - CHRONIC KIDNEY DISEASE, STAGE 3 (MODERATE) Status: Acute Qualifiers: (3) UTI (urinary tract infection) Status: Acute Comment: E coli with E coli bacteremia (4) Venous ulcer of left leg Code(s): I83.029 - VARICOSE VEINS OF LEFT LOWER EXTREMITY W ULCER OF UNSP SITE Status: Acute (5) Elevated troponin Code(s): R74.8 - ABNORMAL LEVELS OF OTHER SERUM ENZYMES Status: Acute Comment: due to demand ischemia/Sepsis (6) Hyperkalemia Code(s): E87.5 - HYPERKALEMIA (7) Chronic diastolic (congestive) heart failure Code(s): I50.32 - CHRONIC DIASTOLIC (CONGESTIVE) HEART FAILURE Status: Chronic Comment: EF 50-55%, ACC Stage C (8) Morbid obesity Code(s): E66.01 - MORBID (SEVERE) OBESITY DUE TO EXCESS CALORIES Status: Chronic (9) PAD (peripheral artery disease) Code(s): I73.9 - PERIPHERAL VASCULAR DISEASE, UNSPECIFIED Status: Chronic (10) Venous insufficiency of both lower extremities Code(s): I87.2 - VENOUS INSUFFICIENCY (CHRONIC) (PERIPHERAL) Status: Chronic (11) Anemia Code(s): D64.9 - ANEMIA, UNSPECIFIED Status: Chronic Qualifiers: Anemia type: due to chronic kidney disease - Plan DVT proph w/SCDs * DC IVF * Stable for dc to Rehab when bed available * Will change Atbx to PO at dc * Cont other meds as below Review of Systems - Review of Systems Respiratory: negative: Cough, Dry, Shortness of Breath, Hemoptysis, SOB with Excertion, Pleuritic Pain, Sputum, Wheezing Cardiovascular: negative: chest pain, palpitations, orthopnea, paroxysmal nocturnal dyspnea, edema, light headedness, other - Medications/Allergies Allergies/Adverse Reactions: Allergies Allergy/AdvReac Type Severity Reaction Status Date / Time No Known Drug Allergies Allergy Verified 01/24/17 20:06 Medications: Current Medications Acetaminophen (Tylenol) 650 mg PO Q6H PRN PRN Reason: FEVER/PAIN Last Admin: 07/21/18 00:12 Dose: 650 mg Cyanocobalamin (Vitamin B-12) 1,000 mcg PO DAILY [facility] Last Admin: 07/22/18 08:26 Dose: 1,000 mcg Fish Oil (Fish Oil) 1,000 mg PO DAILY [facility] Last Admin: 07/22/18 08:26 Dose: 1,000 mg Folic Acid (Folvite) 1 mg PO DAILY [facility] Last Admin: 07/22/18 08:26 Dose: 1 mg Ceftriaxone Sodium 2 gm/ (Sodium Chloride) 100 mls @ 200 mls/hr IVPB 0800 [facility] Last Admin: 07/22/18 08:26 Dose: 100 mls Sodium Bicarbonate 100 meq/ (Dextrose/Water) 1,000 mls @ 50 mls/hr IV .Q20H [facility] Last Admin: 07/22/18 20:50 Dose: 1,000 mls Pantoprazole Sodium (Protonix) 40 mg PO DAILY [facility] Last Admin: 07/22/18 08:26 Dose: 40 mg Sodium Chloride (Flush - Normal Saline) 10 ml IVF Q12HR [facility] Last Admin: 07/22/18 20:29 Dose: Not Given Sodium Chloride (Flush - Normal Saline) 10 ml IVF PRN PRN PRN Reason: Saline Flush Tramadol HCl (Ultram) 50 mg PO Q6H PRN PRN Reason: Moderate Pain (4-6)
[2018-07-23] MEDS: Folic Acid 1 MG TAB PO SCH (09:07)
[2018-07-23] MEDS: cefTRIAXone\\ROCEPHIN 2 GM in Sodium Chloride 0.9% 100 ML IVPB SCH (09:07)
[2018-07-23] MEDS: Cyanocobalamin (Vitamin B-12) 1,000 MCG TAB PO SCH (09:07)
[2018-07-23] MEDS: Fish Oil 1,000 MG CAP PO SCH (09:07)
[2018-07-23 11:13] VITALS: BP 121/80; TEMP 98.2
--- NOTE | 2018-07-24 11:32 | DIS ---
DATE OF ADMISSION: 07/17/2018 DATE OF DISCHARGE: 07/23/2018 DISCHARGE DISPOSITION: To inpatient rehabilitation. ALLERGIES: NO KNOWN DRUG ALLERGIES. DISCHARGE MEDICATIONS: 1. Tylenol as needed. 2. Allopurinol 100 mg daily. 3. Aspirin 81 mg daily. 4. Carvedilol 6.25 mg b.i.d. 5. Vitamin B12, folic acid daily. 6. Lasix 20 mg daily. 7. Ferrous sulfate 325 mg b.i.d. 8. Fish oil daily. 9. Multivitamin one tablet daily. 10. Protonix 40 mg daily. The patient was seen and examined on the day of discharge. Denies any new complaints. No chest pain, shortness of breath, or palpitations reported. BRIEF HOSPITAL COURSE: The patient is a 72-year-old female with chronic venous ulceration and obesity, presented to the emergency room with generalized weakness from her PCPs office. Please refer to the history and physical for further details. The patient was admitted to the hospital with a diagnosis of sepsis with acute organ dysfunction. On admission, WBC count was 20,000 with 15% bandemia. Blood culture was positive for E. coli 2/2. Urine culture showed the same organism. She was found to have a postvoid residual of around 550 mL for which Su catheter has been placed. She will continue Su catheter for now. Antibiotics have been changed to oral. She will follow up with Urology Clinic as outpatient. She has been afebrile. She will also continue Wound Care for chronic venous ulceration. She was evaluated by Infectious Disease, Dr. Davis. She also received 1 unit of PRBC due to low hemoglobin. She was found to have acute kidney injury secondary to sepsis that is also improving. Her creatinine on the day of discharge is 1.49. Maximum creatinine this admission was 2.6. Plan of care was discussed with the patient in detail and she stated understanding. FINAL DIAGNOSES: 1. Sepsis with acute organ dysfunction secondary to Escherichia coli urinary tract infection with bacteremia. 2. Urinary retention. Su catheter has been placed. 3. Acute kidney injury on chronic kidney disease stage 3. 4. Chronic venous ulceration of lower extremity. 5. Elevated troponin secondary to demand ischemia. 6. Hyperkalemia, resolved. 7. Chronic diastolic heart failure. 8. Morbid obesity with a BMI of 41.9. 9. Peripheral arterial disease. 10. Chronic venous insufficiency in bilateral lower extremity. 11. Anemia, probably secondary to chronic kidney disease, requiring 1 unit of PRBC. Her ferritin was 2300 with TIBC of 113 and iron of 18. She was advised to follow up with the Nephrology Clinic and to consider possible discontinuation of oral iron supplementation. Job ID: [id number]
--- NOTE | 2018-07-26 15:15 | EKG ---
Test Reason : Blood Pressure : / mmHG Vent. Rate : 080 BPM Atrial Rate : 080 BPM P-R Int : 142 ms QRS Dur : 090 ms QT Int : 412 ms P-R-T Axes : 046 -04 026 degrees QTc Int : 475 ms Normal sinus rhythm Normal ECG Confirmed by ROHITH GODOY, LACI Black ([id number]), editor news SCOTT CRUZ ([id number]) on 07/26/2018 3:14:53 PM Referred By: Confirmed By:LACI NEWBERRY MD
== END 2018-07-23 14:42 | DRG 872 ==
LOC: ERS 19:11 → ERHOLD 22:00 → 2NO 07-18 02:57 → T4-B 07-18 18:14
PROVIDERS: ADMIT Internal Medicine; ATTEND Internal Medicine
DX: A41.51 Sepsis due to Escherichia coli [E. coli] (principal); I50.32 Chronic diastolic (congestive) heart failure; I13.0 Hypertensive heart and chronic kidney disease with heart failure and stage 1 through stage 4 chronic kidney disease, or unspecified chronic kidney disease; N39.0 Urinary tract infection, site not specified; N17.9 Acute kidney failure, unspecified; E87.1 Hypo-osmolality and hyponatremia; I24.8 Other forms of acute ischemic heart disease; Z68.41 Body mass index [BMI] 40.0-44.9, adult; E66.01 Morbid (severe) obesity due to excess calories; M10.9 Gout, unspecified; N18.3 Chronic kidney disease, stage 3 (moderate); K21.9 Gastro-esophageal reflux disease without esophagitis; E86.0 Dehydration; E87.5 Hyperkalemia; G47.33 Obstructive sleep apnea (adult) (pediatric); I83.029 Varicose veins of left lower extremity with ulcer of unspecified site; I73.9 Peripheral vascular disease, unspecified; I87.2 Venous insufficiency (chronic) (peripheral); D63.1 Anemia in chronic kidney disease; Z79.82 Long term (current) use of aspirin; Z83.3 Family history of diabetes mellitus; Z82.49 Family history of ischemic heart disease and other diseases of the circulatory system
CPT/HCPCS: 36415; 36416; 36430; 51701; 71045; 74176; 80048; 80053; 80202; 81003; 81015; 82274; 82550; 82553; 82728; 83540; 83550; 83605; 83735; 83880; 84484; 85025; 85046; 86850; 86900; 86901; 87040; 87070; 87077; 87086; 87149; 87186; 87205; 93005; 93306; 93970; 96361; 96365; 96366; 96367; 96372; A4353; G8978-GP-CL; G8979-GP-CJ; G8987-GO-CK; G8988-GO-CI; J0696; J1650; J2543; J3370; J3490; J7050; J7070; P9016

== ENCOUNTER 2018-08-22 14:22 | Inpatient (IN) | payer MEDICARE ==
[2018-08-22 14:56] LABS: Bilirubin Negative (Negative); Blood, Urine Trace (Negative); Clarity CLEAR (Clear); Glucose, Urine (Dipstick) Negative (Negative); Leukocyte Negative (Negative); Nitrite Negative (Negative); Protein, Urine (Dipstick) 100 mg/dL (Neg-Trace); Specific Gravity, Urine 1.013 (1.002-1.036)
[2018-08-22 14:58] LABS: Bacteria/HPF None Seen HPF (None Seen); Hyaline Casts/LPF 0-3 HYALINE CAST LPF (0-3 Hyaline); Pathc Cast-AUWi Flag 0.72 (0-2.49); RBC/HPF 0-3 HPF (0-3); Squamous Epithelial 0-3 HPF (0-3)
[2018-08-22 15:02] LABS: #Basophils 0.1 thou/uL (0.0-0.2); #Eosinphils 0.1 thou/uL (0.0-0.7); #Lymphocytes 1.5 thou/uL (1.20-3.40); #Monocytes 0.7 thou/uL (0.11-0.59); #Neutrophils 11.4 thou/uL (1.40-6.50); %Basophils 0.4 % (0.0-1.0); %Eosinophils 0.4 % (0.0-10.0); %Lymphocytes 10.7 % (21.0-51.0); %Monocytes 5.3 % (0.0-10.0); %Neutrophils 83.1 % (42.0-75.0); Hemoglobin 9.5 g/dL (12.0-16.0); Mean Corpuscular HGB CONC 31.5 g/dL (32.0-36.0); Mean Corpuscular Hemoglobin 28.4 pg (27.0-31.0); Mean Corpuscular Volume 90.3 fL (78.0-98.0); Mean Platelet Volume 8.1 fL (7.4-10.4); Platelet Count 237 thou/uL (130-400); RBC Distribution Width 15.8 % (11.5-14.5); Red Blood Cell (RBC) Count 3.35 mill/uL (4.20-5.40); White Blood Cell (WBC) Count 13.7 thou/uL (4.8-10.8)
[2018-08-22] MEDS ORDERED: Piperacillin/Tazobactam 4.5 GM VIAL ONE (15:04)
--- NOTE | 2018-08-22 15:37 | RAD ---
PORTABLE CHEST: HISTORY: Fall this morning. Rapid heart rate. FINDINGS: Heart size and mediastinum within normal limits. The lungs are clear of infiltrates. No bony findin gs. No change since the 07/17/2018 study. IMPRESSION: No active intrathoracic disease. POS: [facility]
[2018-08-22 15:44] LABS: ALT (SGPT) Less than 7 U/L (8-55); AST (SGOT) 12 U/L (5-34); Albumin 3.6 g/dL (3.4-4.8); Alkaline Phosphatase 84 U/L (40-150); Anion Gap 17 mmol/L (10-20); BUN (Urea Nitrogen) 45 mg/dL (9.8-20.1); Bilirubin, Total 0.6 mg/dL (0.2-1.2); Calc. Creatinine Clearance 0 mL/min (70-130); Calcium 9.2 mg/dL (7.8-10.44); Carbon Dioxide 19 mmol/L (23-31); Chloride 108 mmol/L (98-107); Estimated GFR-MDRD 27; Globulin 4.1 g/dL (2.4-3.5); Glucose 85 mg/dL (83-110); Potassium 5.1 mmol/L (3.5-5.1); Protein, Total 7.7 g/dL (6.0-8.3); Sodium 139 mmol/L (136-145)
[2018-08-22] MEDS ORDERED: Ibuprofen 200 MG TAB ONE (18:44)
[2018-08-22] MEDS ORDERED: Ibuprofen 200 MG TAB PO SCH (18:45)
[2018-08-22] MEDS ORDERED: Ondansetron PF 4 MG/2 ML Vial IVP PRN (19:40)
[2018-08-22] MEDS ORDERED: Ondansetron ODT 4 MG TAB PO PRN (19:40)
[2018-08-22] MEDS ORDERED: Acetaminophen 325 MG TAB PO PRN (19:40)
[2018-08-22] MEDS ORDERED: Acetaminophen 650 MG Suppository PR PRN (19:40)
[2018-08-22] MEDS ORDERED: Senokot S 8.6-50 MG TAB PO PRN (19:40)
[2018-08-22] MEDS ORDERED: Famotidine 20 MG TAB PO SCH (21:00)
[2018-08-22 21:46] VITALS: BMI 40.9
[2018-08-22] MEDS: Ferrous Sulfate 325 MG TAB PO SCH (22:00)
[2018-08-22] MEDS: Carvedilol 6.25 MG TAB PO SCH (22:01)
[2018-08-22] MEDS: Piperacillin/Tazobactam 2.25 GM in Sodium Chloride 0.9% 100 ML IVPB SCH (22:18)
--- NOTE | 2018-08-22 23:27 | HP ---
PRIMARY CARE PHYSICIAN: Dr. Monzon. CHIEF COMPLAINT: Weakness and fever. HISTORY OF PRESENT ILLNESS: This is a 72-year-old female who was recently in the hospital for congestive heart failure and went to rehab. She had some venous insufficiency ulcers of her legs and some pressure ulcers on her bottom. At that time, she was discharged to rehab and then eventually discharged home. She reports that she has had a mild nonproductive cough ever since her discharge from rehab, but otherwise, had been in her baseline status until the past couple of days when she started spiking fevers. She then got weak and slid out of her chair and could not get up. Home Health was called and when they went to help her out, they noticed a rapid heart rate and fever. EMS got there, she had a temperature max of 105 and was tachycardic in the low 100s. She was given 1 gram of Tylenol by EMS, uncertain if they also gave her fluids or not. She was brought into the emergency room. In the ER, she had a fever that dropped to 101-102 range and then started to go back up. She was given a single dose of ibuprofen 400 mg and the fever did drop back down again to about 100.6. The patient reports feeling tired, having mild persistent cough and having the continued ulcers on her bottom and on her legs. She does not necessarily know if they have gotten worse or not. She reports that she gets up to a chair at her house, uncertain exactly how much ambulation she does, though. PAST MEDICAL HISTORY: 1. Morbid obesity. 2. Chronic edema to the lower extremities with stasis dermatitis and chronic non-healing ulcers present for 5-6 years. 3. Hypertension. 4. Gout. 5. Diastolic congestive heart failure with previous pulmonary edema. 6. Possible obstructive sleep apnea. 7. Chronic kidney disease, stage 3. 8. Gastroesophageal reflux disease. PAST SURGICAL HISTORY: 1. Cataract removal. 2. Tubal ligation. 3. Left breast biopsy. SOCIAL HISTORY: No tobacco, alcohol, or illicit drug use. She is not . She lives with her son. ALLERGIES: NO KNOWN DRUG ALLERGIES. CURRENT MEDICATIONS: 1. Ferrous sulfate 325 mg 2 times a day. 2. Protonix 40 mg daily. 3. Aspirin 81 mg daily. 4. Furosemide 20 mg twice a day. 5. Allopurinol 100 mg 3 times a day. 6. Carvedilol 12.5 mg twice a day. FAMILY HISTORY: Notable for diabetes and coronary artery disease. REVIEW OF SYSTEMS: CONSTITUTIONAL: Fevers and chills as per HPI. Generalized weakness. EYES: No new double vision or blurred vision. ENT: She has had a little runny nose. No sore throat. CARDIOVASCULAR: No chest pain. No palpitations or racing heart. PULMONARY: Mild cough. No shortness of breath. No wheezing. No chest tightness. GASTROINTESTINAL: No abdominal pain. No nausea or vomiting. No diarrhea or constipation. GENITOURINARY: No dysuria or hematuria. MUSCULOSKELETAL: No muscle aches or joint pains. SKIN: See HPI. NEUROLOGIC: No numbness, tingling, or focal weakness that she has noticed. PHYSICAL EXAMINATION: VITAL SIGNS: Blood pressure 114/66, pulse 114, respirations 22, temperature 100.6, O2 saturation 100% on room air. GENERAL: This is a well-developed, obese, female in no acute distress, just looks tired. HEENT: Pupils equal, round, and reactive to light. Oropharynx clear without lesions, erythema, or exudate. NECK: Supple. No lymphadenopathy. No thyroid nodules or enlargement. No JVD. HEART: Regular rate and rhythm. No murmurs, rubs, or gallops. LUNGS: Clear to auscultation bilaterally. No wheezes, crackles, or rhonchi. ABDOMEN: Soft, nontender to palpation. Normoactive bowel sounds. No hepatosplenomegaly or other masses. EXTREMITIES: She has some lymphedema to bilateral lower extremities. SKIN: The patient has a large ulcer to the left leg. This actually looks consistent with the picture that was taken in the hospital last month when she was inpatient. No surrounding erythema. It is draining clear fluid. She also has a pressure sore on bilateral buttocks, especially on the left buttock/hip. This currently has a dry dressing placed by the emergency room on it. It is significantly larger than it was during her last hospitalization. No surrounding erythema noted, though. It does have some discharge from it. NEUROLOGIC: Intact sensation to all extremities. She is able to move all her extremities and has no facial droop. LABORATORY DATA: CBC with a white blood cell count of 13.7, which is a significant elevation compared to what it was last month. Hemoglobin 9.5, hematocrit 30.3, which is actually increased from earlier in the month. Platelet count 237, neutrophils 83%. Complete metabolic panel is notable for chloride of 109, bicarb of 19, BUN of 45, creatinine of 2.19, which is about stable for her, maybe on the higher side of her normal. The rest of her complete metabolic panel was normal. Her lactic acid was negative in the emergency room. Urinalysis shows some trace blood, 46 white blood cells and no bacteria. No leukocyte esterase. No nitrites. X-RAY: I did review the chest x-ray done in the emergency room along with the radiologist's report. It shows normal-sized heart without any surrounding edema. No pleural effusions. No infiltrate. EKG in the emergency room showed sinus tachycardia with some PACs, but no other significant abnormalities. ASSESSMENT AND PLAN: 1. Sepsis with fever, elevated white blood cell count and mild tachycardia. The patient did not have an elevated lactic acid. There has been no hypotension, it is not severe sepsis and she actually does not look volume depleted with her creatinine on the upper end of normal for her and a history of problems with diastolic congestive heart failure. So we will not give her significant fluid resuscitation. We will hold her Lasix and then resume it tomorrow morning. The patient has already gotten Zosyn and vancomycin in the emergency room. We will continue these. I will have Pharmacy dose the vancomycin. The most likely source of her infection is hip ulcer, though a pulmonary cause is also a possibility and this also may be viral. Her flu test was negative, however. 2. Pressure ulcers, worsening on her hips, possibly infected. We will have Wound Care evaluate and we will consult General surgery. 3. Chronic renal insufficiency stage 3, currently at the upper end of her baseline. We will hold Lasix until tomorrow and then resume. We will not give any large fluid boluses at this point as she looks euvolemic. 4. Diastolic congestive heart failure, not in exacerbation. 5. Gastroesophageal reflux disease. Resume patient's proton pump inhibitor. 6. Gout. Resume patient's allopurinol. 7. Deep venous thrombosis prophylaxis. We will put patient on Lovenox. 8. Code status. I did discuss this with the patient. She is a full code. Should she be incapacitated, she stated that her son, Castro Olivas, would be her medical decision maker. Job ID: [id number]
[2018-08-23] MEDS: Piperacillin/Tazobactam 2.25 GM in Sodium Chloride 0.9% 100 ML IVPB SCH ×4 (04:24→22:10)
[2018-08-23 06:30] LABS: #Eosinphils 0.5 thou/uL (0.0-0.7); #Monocytes 0.6 thou/uL (0.11-0.59); #Neutrophils 8.8 thou/uL (1.40-6.50); %Basophils 0.4 % (0.0-1.0); %Eosinophils 4.2 % (0.0-10.0); %Lymphocytes 9.1 % (21.0-51.0); %Monocytes 5.6 % (0.0-10.0); %Neutrophils 80.8 % (42.0-75.0); Hemoglobin 7.9 g/dL (12.0-16.0); Mean Corpuscular HGB CONC 30.9 g/dL (32.0-36.0); Mean Corpuscular Hemoglobin 28.5 pg (27.0-31.0); Mean Corpuscular Volume 92.2 fL (78.0-98.0); Mean Platelet Volume 8.5 fL (7.4-10.4); Platelet Count 187 thou/uL (130-400); RBC Distribution Width 15.6 % (11.5-14.5); Red Blood Cell (RBC) Count 2.77 mill/uL (4.20-5.40); White Blood Cell (WBC) Count 10.9 thou/uL (4.8-10.8)
[2018-08-23 06:55] LABS: Anion Gap 12 mmol/L (10-20); BUN (Urea Nitrogen) 44 mg/dL (9.8-20.1); Calc. Creatinine Clearance 35 mL/min (70-130); Calcium 8.1 mg/dL (7.8-10.44); Carbon Dioxide 19 mmol/L (23-31); Chloride 113 mmol/L (98-107); Estimated GFR-MDRD 25; Glucose 76 mg/dL (83-110); Potassium 4.4 mmol/L (3.5-5.1); Sodium 140 mmol/L (136-145)
[2018-08-23] MEDS ORDERED: Prevnar 13-Val Conj/PF 0.5 ML SYRINGE IM ONE (09:00)
[2018-08-23] MEDS: Ferrous Sulfate 325 MG TAB PO SCH ×2 (09:14→19:29)
[2018-08-23] MEDS: Aspirin Chewable 81 MG TAB PO SCH (09:15)
[2018-08-23] MEDS: Carvedilol 6.25 MG TAB PO SCH ×2 (09:15→22:05)
[2018-08-23] MEDS: Allopurinol 100 MG TAB PO SCH (09:15)
[2018-08-23] MEDS: Enoxaparin Sodium 30 MG/0.3 ML SYRINGE SC SCH (09:16)
--- NOTE | 2018-08-23 14:13 | PDOC.PN ---
- Subjective Encounter Start Date: 08/23/18 Encounter Start Time: 08:40 Pt seen for followup re: sepsis. Feels better. - Objective Resuscitation Status - Order Detail: 08/22/18 19:34 Resuscitation Status Routine Resuscitation Status: FULL: Full Resuscitation Discussed with: Patient Vital Signs & Weight: Vital Signs (12 hours) Temp Pulse Resp BP Pulse Ox 08/23/18 11:37 97.6 F 74 20 118/58 L 08/23/18 09:52 93 L 08/23/18 08:27 97.6 F 72 20 102/50 L 93 L 08/23/18 04:28 97.9 F 69 18 97/49 L Weight Weight 223 lb 15.834 oz Result Diagrams: 08/23/18 05:52 08/23/18 05:52 Phys Exam - Physical Examination Morbid obesity HEENT: moist MMs, sclera anicteric, oral pharynx no lesions, 2+ tonsils Neck: no nodes, no JVD, supple, full ROM Respiratory: clear to auscultation bilateral Cardiovascular: RRR, no rub S1, S2 Gastrointestinal: soft, non-tender, no distention, positive bowel sounds Neurological: moves all 4 limbs Psychiatric: normal affect, A&O x 3 Deviation from normal: Wounds as documented Dx/Plan (1) Sepsis Code(s): A41.9 - SEPSIS, UNSPECIFIED ORGANISM Status: Acute Comment: likely secondary to wound infection (2) Wounds, multiple Code(s): T07.XXXA - UNSPECIFIED MULTIPLE INJURIES, INITIAL ENCOUNTER Status: Acute Comment: continue antibiotics, wound care consult (3) CKD (chronic kidney disease), stage III Status: Chronic Comment: stable (4) Chronic diastolic (congestive) heart failure Code(s): I50.32 - CHRONIC DIASTOLIC (CONGESTIVE) HEART FAILURE Status: Chronic Comment: stable - Plan * . Review of Systems - Review of Systems Constitutional: fever. negative: chills, sweats, weakness, malaise Respiratory: negative: Cough, Shortness of Breath, SOB with Excertion, Pleuritic Pain, Wheezing Cardiovascular: negative: chest pain, palpitations, orthopnea, paroxysmal nocturnal dyspnea, edema, light headedness Gastrointestinal: negative: Nausea, Vomiting, Abdominal Pain, Diarrhea, Constipation, Melena, Hematochezia Genitourinary: negative: Dysuria, Frequency, Incontinence, Hematuria, Retention - Medications/Allergies Allergies/Adverse Reactions: Allergies Allergy/AdvReac Type Severity Reaction Status Date / Time No Known Drug Allergies Allergy Verified 01/24/17 20:06 Medications: Current Medications Acetaminophen (Tylenol) 650 mg PO Q4H PRN PRN Reason: Headache/Fever/Mild Pain (1-3) Last Admin: 08/22/18 22:00 Dose: 650 mg Acetaminophen (Tylenol) 650 mg NC Q4H PRN PRN Reason: Headache/Fever/Mild Pain (1-3) Allopurinol (Zyloprim) 100 mg PO DAILY [facility] Last Admin: 08/23/18 09:15 Dose: 100 mg Aspirin (Aspirin Chewable) 81 mg PO DAILY [facility] Last Admin: 08/23/18 09:15 Dose: 81 mg Carvedilol (Coreg) 6.25 mg PO BID [facility] Last Admin: 08/23/18 09:15 Dose: 6.25 mg Enoxaparin Sodium (Lovenox) 30 mg SC 0900 [facility] Last Admin: 08/23/18 09:16 Dose: 30 mg Ferrous Sulfate (Feosol) 325 mg PO BID [facility] Last Admin: 08/23/18 09:14 Dose: 325 mg Piperacillin Sod/Tazobactam (Sod 2.25 gm/ Sodium Chloride) 100 mls @ 200 mls/ hr IVPB 0400,1000,1600,2200 [facility] Last Admin: 08/23/18 09:33 Dose: 100 mls Vancomycin HCl 1 gm/ Device 200 mls @ 200 mls/hr IVPB Q24HR [facility] Miscellaneous Medication (Pharmacy To Dose) 1 each IVPB PRN PRN PRN Reason: Pharmacy to dose Ondansetron HCl (Zofran Odt) 4 mg PO Q6H PRN PRN Reason: Nausea/Vomiting Ondansetron HCl (Zofran) 4 mg IVP Q6H PRN PRN Reason: Nausea/Vomiting Pantoprazole Sodium (Protonix) 40 mg PO DAILY [facility] Last Admin: 08/23/18 09:15 Dose: 40 mg Senna/Docusate Sodium (Senokot S) 2 tab PO BID PRN PRN Reason: Constipation Sodium Chloride (Flush - Normal Saline) 10 ml IVF Q12HR [facility] Last Admin: 08/23/18 09:16 Dose: Not Given Sodium Chloride (Flush - Normal Saline) 10 ml IVF PRN PRN PRN Reason: Saline Flush
[2018-08-23] MEDS: Vancomycin HCl 1 GM in Premix Bag 1 BAG IVPB SCH (15:41)
[2018-08-24] MEDS: Piperacillin/Tazobactam 2.25 GM in Sodium Chloride 0.9% 100 ML IVPB SCH ×4 (03:58→21:17)
--- NOTE | 2018-08-24 09:01 | CON ---
DATE OF CONSULTATION: REASON FOR CONSULT: Decubitus ulcers. HISTORY: Ms. Olivas is a 72-year-old woman with multiple chronic medical issues including chronic venous stasis ulcers, morbid obesity, hypertension, doubt heart failure, renal insufficiency, and suspected sleep apnea, where she was recently in the hospital for CHF exacerbation, and then went to rehab. She had some chronic ulcers on her legs as well some pressure ulcers on her bottom. She was discharged from rehab and went home, but developed a chronic cough. She then started spiking fevers and got weak and could not get up after she slid out of her chair. She was brought to the hospital due to a rapid heart rate and fever, and was admitted for this. Since that time, she states that she is feeling better. Her temperature has diminished and she denies any pain. PAST MEDICAL HISTORY: Includes morbid obesity, chronic venous stasis ulcers, hypertension, gout, heart failure, suspected sleep apnea, chronic renal insufficiency, and GERD. PAST SURGICAL HISTORY: Includes tubal ligation, breast biopsy, and cataract. SOCIAL HISTORY: She does not smoke, drink, or use illicit drugs. She lives with family and is minimally mobile. She has no known drug allergies. OUTPATIENT MEDICATIONS: Include; 1. Protonix. 2. Aspirin. 3. Lasix. 4. Allopurinol. 5. Carvedilol. 6. Iron. FAMILY HISTORY: Family history of heart disease. REVIEW OF SYSTEMS: Negative except per HPI. PHYSICAL EXAMINATION: GENERAL: Reveals a morbidly obese woman, in no acute distress, lying in bed, but able to turn with assistance. HEENT: Unremarkable. NECK: Supple without lymphadenopathy or thyroid nodule. HEART: Regular in its rate and rhythm with a soft systolic murmur. I do not appreciate any gallops or rubs. LUNGS: Fairly clear to auscultation, although breath sounds are distant. ABDOMEN: Soft and nondistended. She has an umbilical hernia, which is somewhat tender with attempts to reduce, but does reduce. Otherwise, nontender with no other masses or hernia. EXTREMITIES: Warm with normal cap refill. Her left leg is more swollen than her right leg. She has evidence of healed venous stasis ulcers on the right leg as well as several areas of healed venous stasis ulcers on the left leg. She has a few chronic ulcers on the left posterior ankle area, which are superficial and clean. She has some healing ulcers on the lateral and anterior area. There is minimal drainage from these. She does have a palpable pedal pulse on the left. On the back, she has two fairly broad ischial decubitus ulcers, which appears superficial and partial-thickness with a clean base of derma. NEURO: No focal deficits. PSYCHIATRIC: Alert, oriented, and appropriate. LABORATORY DATA: White count is elevated at 10.9 with a left shift, hematocrit is low at 25. BUN and creatinine are elevated at 44 and 2.36. Other electrolytes are unremarkable. IMAGING: Chest x-ray shows no active infiltrates. ASSESSMENT AND PLAN: Fever of unknown origin. The wounds did not appear infected and did not require debridement. It should heal with offloading and standard wound care with absorbent dressing. I explained to the patient that the ischial ulcers are from sitting for too long and that she cannot really sit completely upright and pull the heels. She will need to be in a semi-recumbent position and move from side to side. The chronic ulcers on her left leg will also be dressed with Alginate Ag dressing. The leg will need to be elevated to reduce the edema as steps of healing. No further surgical intervention is necessary at this time, so we will sign off. Please call me if her wounds worsen in appearance. Job ID: [id number]
[2018-08-24] MEDS: Ferrous Sulfate 325 MG TAB PO SCH ×2 (10:15→16:41)
[2018-08-24] MEDS: Allopurinol 100 MG TAB PO SCH (10:15)
[2018-08-24] MEDS: Aspirin Chewable 81 MG TAB PO SCH (10:15)
[2018-08-24] MEDS: Carvedilol 6.25 MG TAB PO SCH ×2 (10:16→21:16)
[2018-08-24] MEDS: Enoxaparin Sodium 30 MG/0.3 ML SYRINGE SC SCH (10:16)
--- NOTE | 2018-08-24 10:19 | PDOC.PN ---
- Subjective Encounter Start Date: 08/24/18 Encounter Start Time: 07:00 Pt seen for followup re: sepsis. Feels better. No chest pain, shortness of breath, nausea or vomiting. - Objective Resuscitation Status - Order Detail: 08/22/18 19:34 Resuscitation Status Routine Resuscitation Status: FULL: Full Resuscitation Discussed with: Patient MAR Reviewed: Yes Vital Signs & Weight: Vital Signs (12 hours) Temp Pulse Resp BP BP Pulse Ox 08/24/18 08:00 98.9 F 81 18 119/58 L 100 08/24/18 04:00 99.1 F 86 16 98/46 L 100 08/23/18 23:46 99.7 F H 93 16 128/60 100 Weight Admit Weight 223 lb 15.824 oz Weight 227 lb 11.8 oz I&O: 08/23/18 08/24/18 08/25/18 06:59 06:59 06:59 Intake Total 1310 Output Total 1950 Balance -640 Result Diagrams: 08/23/18 05:52 08/23/18 05:52 Additional Labs: Labs reviewed by me Phys Exam - Physical Examination Morbid obesity HEENT: moist MMs, sclera anicteric, oral pharynx no lesions, 2+ tonsils Neck: no nodes, no JVD, supple, full ROM Respiratory: clear to auscultation bilateral Cardiovascular: RRR, no rub S1, S2 Gastrointestinal: soft, non-tender, no distention, positive bowel sounds Neurological: moves all 4 limbs Psychiatric: normal affect, A&O x 3 Deviation from normal: Wounds as documented Dx/Plan (1) Sepsis Code(s): A41.9 - SEPSIS, UNSPECIFIED ORGANISM Status: Acute Comment: likely secondary to bronchitis (2) Bronchitis Code(s): J40 - BRONCHITIS, NOT SPECIFIED ACUTE OR CHRONIC Status: Acute Comment: present on admission, continue IV antibiotics as below. (3) Acute worsening of stage 3 chronic kidney disease Code(s): N18.3 - CHRONIC KIDNEY DISEASE, STAGE 3 (MODERATE) Status: Acute Comment: present on admission, recheck labs (4) Decubitus ulcer Code(s): L89.90 - PRESSURE ULCER OF UNSPECIFIED SITE, UNSPECIFIED STAGE Status : Chronic Comment: wound care following (5) CKD (chronic kidney disease), stage III Status: Chronic Comment: check labs - Plan * . Review of Systems - Review of Systems Constitutional: weakness. negative: fever, chills, sweats, malaise Respiratory: Cough, Dry. negative: Shortness of Breath, Hemoptysis, SOB with Excertion, Pleuritic Pain, Sputum, Wheezing Cardiovascular: negative: chest pain, palpitations, orthopnea, paroxysmal nocturnal dyspnea, edema, light headedness Gastrointestinal: negative: Nausea, Vomiting, Abdominal Pain, Diarrhea, Constipation, Melena, Hematochezia Genitourinary: negative: Dysuria, Frequency, Incontinence, Hematuria, Retention - Medications/Allergies Allergies/Adverse Reactions: Allergies Allergy/AdvReac Type Severity Reaction Status Date / Time No Known Drug Allergies Allergy Verified 01/24/17 20:06 Medications: Current Medications Acetaminophen (Tylenol) 650 mg PO Q4H PRN PRN Reason: Headache/Fever/Mild Pain (1-3) Last Admin: 08/22/18 22:00 Dose: 650 mg Acetaminophen (Tylenol) 650 mg [place] Q4H PRN PRN Reason: Headache/Fever/Mild Pain (1-3) Allopurinol (Zyloprim) 100 mg PO DAILY [facility] Last Admin: 08/23/18 09:15 Dose: 100 mg Aspirin (Aspirin Chewable) 81 mg PO DAILY [facility] Last Admin: 08/23/18 09:15 Dose: 81 mg Carvedilol (Coreg) 6.25 mg PO BID [facility] Last Admin: 08/23/18 22:05 Dose: 6.25 mg Enoxaparin Sodium (Lovenox) 30 mg SC 0900 [facility] Last Admin: 08/23/18 09:16 Dose: 30 mg [facility] Sod/Tazobactam (Sod 2.25 gm/ Sodium Chloride) 100 mls @ 200 mls/ hr IVPB 0400,1000,1600,2200 [facility] Last Admin: 08/24/18 03:58 Dose: 100 mls Vancomycin HCl 1 gm/ Device 200 mls @ 200 mls/hr IVPB Q24HR [facility] Last Admin: 08/23/18 15:41 Dose: 200 mls Miscellaneous Medication (Pharmacy To Dose) 1 each IVPB PRN PRN PRN Reason: Pharmacy to dose Ondansetron HCl (Zofran Odt) 4 mg PO Q6H PRN PRN Reason: Nausea/Vomiting Ondansetron HCl (Zofran) 4 mg IVP Q6H PRN PRN Reason: Nausea/Vomiting Pantoprazole Sodium (Protonix) 40 mg PO DAILY [facility] Last Admin: 08/23/18 09:15 Dose: 40 mg Senna/Docusate Sodium (Senokot S) 2 tab PO BID PRN PRN Reason: Constipation Sodium Chloride (Flush - Normal Saline) 10 ml IVF Q12HR [facility] Last Admin: 08/23/18 22:06 Dose: 10 ml Sodium Chloride (Flush - Normal Saline) 10 ml IVF PRN PRN PRN Reason: Saline Flush Last Admin: 08/24/18 03:58 Dose: 10 ml
[2018-08-24 11:01] LABS: #Eosinphils 0.6 thou/uL (0.0-0.7); #Lymphocytes 1.3 thou/uL (1.20-3.40); #Monocytes 0.6 thou/uL (0.11-0.59); #Neutrophils 4.1 thou/uL (1.40-6.50); %Basophils 0.5 % (0.0-1.0); %Eosinophils 9.5 % (0.0-10.0); %Lymphocytes 19.8 % (21.0-51.0); %Monocytes 9.3 % (0.0-10.0); %Neutrophils 60.9 % (42.0-75.0); Hemoglobin 8.1 g/dL (12.0-16.0); Mean Corpuscular HGB CONC 31.4 g/dL (32.0-36.0); Mean Corpuscular Hemoglobin 28.8 pg (27.0-31.0); Mean Corpuscular Volume 91.8 fL (78.0-98.0); Mean Platelet Volume 8.3 fL (7.4-10.4); Platelet Count 187 thou/uL (130-400); RBC Distribution Width 15.5 % (11.5-14.5); Red Blood Cell (RBC) Count 2.79 mill/uL (4.20-5.40); White Blood Cell (WBC) Count 6.6 thou/uL (4.8-10.8)
[2018-08-24 11:21] LABS: Anion Gap 12 mmol/L (10-20); BUN (Urea Nitrogen) 38 mg/dL (9.8-20.1); Calc. Creatinine Clearance 36 mL/min (70-130); Calcium 8.4 mg/dL (7.8-10.44); Carbon Dioxide 20 mmol/L (23-31); Chloride 114 mmol/L (98-107); Estimated GFR-MDRD 24; Glucose 96 mg/dL (83-110); Potassium 4.3 mmol/L (3.5-5.1); Sodium 142 mmol/L (136-145)
[2018-08-24 14:49] LABS: Vancomycin, Trough 14.9 ug/mL
[2018-08-24] MEDS: Vancomycin HCl 1 GM in Premix Bag 1 BAG IVPB SCH (15:20)
[2018-08-25] MEDS: Piperacillin/Tazobactam 2.25 GM in Sodium Chloride 0.9% 100 ML IVPB SCH ×2 (04:13→09:37)
[2018-08-25 06:22] LABS: #Eosinphils 0.7 thou/uL (0.0-0.7); #Lymphocytes 1.3 thou/uL (1.20-3.40); #Monocytes 0.5 thou/uL (0.11-0.59); #Neutrophils 3.5 thou/uL (1.40-6.50); %Basophils 0.6 % (0.0-1.0); %Eosinophils 10.9 % (0.0-10.0); %Lymphocytes 21.6 % (21.0-51.0); %Monocytes 8.9 % (0.0-10.0); %Neutrophils 58.1 % (42.0-75.0); Hemoglobin 7.6 g/dL (12.0-16.0); Mean Corpuscular HGB CONC 30.8 g/dL (32.0-36.0); Mean Corpuscular Hemoglobin 28.3 pg (27.0-31.0); Mean Corpuscular Volume 91.9 fL (78.0-98.0); Mean Platelet Volume 8.4 fL (7.4-10.4); Platelet Count 208 thou/uL (130-400); RBC Distribution Width 15.5 % (11.5-14.5); Red Blood Cell (RBC) Count 2.69 mill/uL (4.20-5.40); White Blood Cell (WBC) Count 6.1 thou/uL (4.8-10.8)
[2018-08-25 06:45] LABS: Anion Gap 10 mmol/L (10-20); BUN (Urea Nitrogen) 35 mg/dL (9.8-20.1); Calc. Creatinine Clearance 39 mL/min (70-130); Calcium 8.4 mg/dL (7.8-10.44); Carbon Dioxide 21 mmol/L (23-31); Chloride 115 mmol/L (98-107); Estimated GFR-MDRD 27; Glucose 75 mg/dL (83-110); Potassium 4.4 mmol/L (3.5-5.1); Sodium 142 mmol/L (136-145)
[2018-08-25] MEDS: Allopurinol 100 MG TAB PO SCH (09:36)
[2018-08-25] MEDS: Multivitamin W/ Minerals 1 TAB PO SCH (09:36)
[2018-08-25] MEDS: Furosemide 20 MG TAB PO SCH (09:36)
[2018-08-25] MEDS: Fish Oil 1,000 MG CAP PO SCH (09:36)
[2018-08-25] MEDS: Aspirin Chewable 81 MG TAB PO SCH (09:36)
[2018-08-25] MEDS: Folic Acid 1 MG TAB PO SCH (09:36)
[2018-08-25] MEDS: Ferrous Sulfate 325 MG TAB PO SCH ×2 (09:37→18:02)
[2018-08-25] MEDS: Carvedilol 6.25 MG TAB PO SCH ×2 (09:38→21:15)
[2018-08-25] MEDS: Enoxaparin Sodium 30 MG/0.3 ML SYRINGE SC SCH (09:38)
[2018-08-25] MEDS: Vancomycin HCl 1 GM in Premix Bag 1 BAG IVPB SCH (15:02)
--- NOTE | 2018-08-25 15:04 | PDOC.PN ---
- Subjective Encounter Start Date: 08/25/18 Encounter Start Time: 14:50 Subjective: f/u for bronchitis and sepsis on Zosyn/Vancomycin. Also with ischial -: and LE ulcers receiving local wound care. Feels much better today, ambulate -: in [place]. - Objective Resuscitation Status - Order Detail: 08/22/18 19:34 Resuscitation Status Routine Resuscitation Status: FULL: Full Resuscitation Discussed with: Patient MAR Reviewed: Yes Vital Signs & Weight: Vital Signs (12 hours) Temp Pulse Resp BP BP BP Pulse Ox 08/25/18 09:38 118/57 L 08/25/18 07:47 98.2 F 75 16 118/56 L 97 08/25/18 04:00 98.3 F 73 12 129/63 98 Weight Admit Weight 223 lb 15.824 oz Weight 227 lb 11.8 oz I&O: 08/24/18 08/25/18 08/26/18 06:59 06:59 06:59 Intake Total 1310 1610 Output Total 1950 950 Balance -640 660 Result Diagrams: 08/25/18 04:16 08/25/18 04:16 Additional Labs: Microbiology 08/22/18 14:46 Nasal swab Influenza Types A,B Direct EIA - Final 08/22/18 14:39 Urine Straight Catheter Urine Culture - Final NO GROWTH AT 36 HOURS 08/22/18 15:14 Venous blood - Right Hand Blood Culture - Preliminary NO GROWTH AT 48 HOURS 08/22/18 14:44 Venous blood - Neck Blood Culture - Preliminary NO GROWTH AT 48 HOURS Laboratory Tests 08/22/18 08/22/18 08/23/18 14:44 14:44 05:52 WBC 13.7 H Creatinine 2.19 H 2.36 H Vancomycin Trough 08/23/18 08/24/18 08/24/18 05:52 10:51 10:51 WBC 10.9 H 6.6 Creatinine 2.37 H Vancomycin Trough 08/24/18 14:14 WBC Creatinine Vancomycin Trough 14.9 Phys Exam - Physical Examination Constitutional: NAD HEENT: PERRLA, sclera anicteric, oral pharynx no lesions Neck: no nodes, no JVD, supple, full ROM Respiratory: no wheezing, no rales, no rhonchi, clear to auscultation bilateral S1, S2 Cardiovascular: RRR, no significant murmur, no rub, gallop Gastrointestinal: soft, non-tender, no distention, positive bowel sounds Musculoskeletal: pulses present, edema present Neurological: normal sensation, moves all 4 limbs Psychiatric: A&O x 3 Skin: normal turgor, cap refill <2 seconds Dx/Plan (1) Acute worsening of stage 3 chronic kidney disease Code(s): N18.3 - CHRONIC KIDNEY DISEASE, STAGE 3 (MODERATE) Status: Acute Comment: Slow improvement, avoid nephrotoxic meds and limit contrast exposure (2) Bronchitis Code(s): J40 - BRONCHITIS, NOT SPECIFIED ACUTE OR CHRONIC Status: Acute Comment: Improved, de-escalate IV abx and convert to po (3) Sepsis Code(s): A41.9 - SEPSIS, UNSPECIFIED ORGANISM Status: Acute Comment: Suspected, resolved (4) Decubitus ulcer Code(s): L89.90 - PRESSURE ULCER OF UNSPECIFIED SITE, UNSPECIFIED STAGE Status : Chronic Comment: Appreciate gen surgery assistance, local wound care, OOB/ ambulate, positional changes (5) Weakness Code(s): R53.1 - WEAKNESS Status: Acute Comment: Multifactorial, PT for mobilization/ambulation, Home Health with PT - Plan continue antibiotics, PT/OT, social worker masters, out of bed/ambulate Stable currently -: OOB/ambulate -: WCT for local care -: D/C Vancomycin/Zosyn -: Start Augmentin 500mg BID * AM lab: BMP * Likely home in 24h with
[2018-08-25] MEDS: Amoxicillin/Potassium Clav 500 MG TAB PO SCH (21:14)
[2018-08-26 06:10] LABS: #Basophils 0.1 thou/uL (0.0-0.2); #Eosinphils 0.7 thou/uL (0.0-0.7); #Lymphocytes 1.7 thou/uL (1.20-3.40); #Monocytes 0.6 thou/uL (0.11-0.59); #Neutrophils 3.1 thou/uL (1.40-6.50); %Basophils 0.8 % (0.0-1.0); %Eosinophils 11.4 % (0.0-10.0); %Lymphocytes 28.4 % (21.0-51.0); %Monocytes 9.1 % (0.0-10.0); %Neutrophils 50.3 % (42.0-75.0); Hemoglobin 7.7 g/dL (12.0-16.0); Mean Corpuscular HGB CONC 31.3 g/dL (32.0-36.0); Mean Corpuscular Hemoglobin 28.5 pg (27.0-31.0); Mean Corpuscular Volume 91.2 fL (78.0-98.0); Mean Platelet Volume 8.4 fL (7.4-10.4); Platelet Count 214 thou/uL (130-400); RBC Distribution Width 15.4 % (11.5-14.5); Red Blood Cell (RBC) Count 2.71 mill/uL (4.20-5.40); White Blood Cell (WBC) Count 6.1 thou/uL (4.8-10.8)
[2018-08-26 06:37] LABS: Anion Gap 10 mmol/L (10-20); BUN (Urea Nitrogen) 26 mg/dL (9.8-20.1); Calc. Creatinine Clearance 43 mL/min (70-130); Calcium 8.5 mg/dL (7.8-10.44); Carbon Dioxide 21 mmol/L (23-31); Chloride 116 mmol/L (98-107); Estimated GFR-MDRD 30; Glucose 69 mg/dL (83-110); Potassium 4.7 mmol/L (3.5-5.1); Sodium 142 mmol/L (136-145)
[2018-08-26 08:55] VITALS: TEMP 98.1
[2018-08-26] MEDS: Fish Oil 1,000 MG CAP PO SCH (08:55)
[2018-08-26] MEDS: Enoxaparin Sodium 30 MG/0.3 ML SYRINGE SC SCH (08:55)
[2018-08-26] MEDS: Carvedilol 6.25 MG TAB PO SCH (08:55)
[2018-08-26] MEDS: Ferrous Sulfate 325 MG TAB PO SCH (08:55)
[2018-08-26] MEDS: Furosemide 20 MG TAB PO SCH (08:56)
[2018-08-26] MEDS: Allopurinol 100 MG TAB PO SCH (08:56)
[2018-08-26] MEDS: Folic Acid 1 MG TAB PO SCH (08:56)
[2018-08-26] MEDS: Aspirin Chewable 81 MG TAB PO SCH (08:56)
[2018-08-26] MEDS: Amoxicillin/Potassium Clav 500 MG TAB PO SCH (08:56)
[2018-08-26] MEDS: Multivitamin W/ Minerals 1 TAB PO SCH (08:56)
[2018-08-26 13:20] VITALS: BP 148/64
--- NOTE | 2018-08-26 17:21 | PQF ---
SENTHIL GARZONDONAL DO [id number] [id number] CLINICAL DOCUMENTATION IMPROVEMENT CLARIFICATION FORM: ICD-10 Updated PLEASE DO AN ADDENDUM TO THE PROGRESS NOTE WITH ANY DOCUMENTATION UPDATES OR ADDITIONS AND CARRY THROUGH TO DC SUMMARY. THANK YOU. DATE: 08/26/2018 ATTN: DR. LITTLE Please exercise your independent, professional judgment in responding to the clarification form. Clinical indicators are provided on the bottom of this form for your review Please check appropriate box(s): [ x ] I (concur) with the Wound Care findings as stated below. [ ] Pressure Ulcer: (Stage I: Erythema; Stage II: Partial thickness; Stage III : Full thickness; Stage IV: Necrosis to muscle/bone) [ ] Location: ___LEFT LOWER LEG STAGE II [ ] Gangrene present [ ] Yes [ ] ischemic gangrene [ ] gas gangrene [ ] No [ ] No pressure ulcer diagnosis [ ] Deep tissue injury [ ] Other diagnosis [ ] Unable to determine In addition, please specify: Present on Admission (POA): [ x ] Yes [ ] No [ ] Unable to determine For continuity of documentation, please document condition throughout progress notes and discharge summary. Thank You. CLINICAL INDICATORS - SIGNS / SYMPTOMS / LABS [id number] Adult Asmt: Lt Lower Leg; Stage III. Coccyx; Stage II. 08/23-WC: Stage II left posterior leg pressure ulcer; partial thickness. RISK FACTORS: 08/22-NN: Shuffling gait. Uses walker at home per son. Max assist-total care. Immobility/ bedridden/ debility Recent hospitalization with discharge to rehab. TREATMENTS: Wound care consult Specialty mattress Gen Surg consult Thank You, Maria Guadalupe (This form is maintained as a part of the permanent medical record) 2014 [employer]. All Rights Reserved Maria Guadalupe Abel RN, CDIS [email or web address] [phone] MTDD
--- NOTE | 2018-08-27 06:24 | DIS ---
DATE OF ADMISSION: 08/22/2018 DATE OF DISCHARGE: 08/26/2018 DISCHARGE DIAGNOSES: 1. Sepsis secondary to decubitus ulcers, resolving. 2. Bronchitis, acute, resolving. 3. Acute kidney injury on chronic kidney disease, stage 3. 4. Decubitus ulcerations of the buttocks and lower extremities. 5. Generalized weakness. 6. Hypertension. CONSULTATIONS: Dr. Whitman with General Surgery Service. PERTINENT LAB AND X-RAY FINDINGS: Creatinine ranged between 1.97 to 2.37, estimated GFR ranged between 24 to 30. CBC showed a white blood cell count ranged between 6.1 to 13.7, hemoglobin ranged between 7.6 to 9.5. Blood cultures x2 showed no growth at 48 hours on 08/22/2018. Influenza A and B antigen dated 08/22/2018 negative. Urine culture dated 08/22/2018 showed no growth at 36 hours. Portable chest x-ray dated 08/22/2018 showed no acute cardiopulmonary process. HOSPITAL COURSE: Patient was admitted to the medical floor after initially presenting with generalized weakness, fever, and tachycardia with criteria consistent with sepsis. Patient underwent general sepsis protocol, initiated on vancomycin and Zosyn after concern for sepsis due to chronic decubitus ulcers of the buttocks and lower extremities. Patient was placed on IV antibiotic therapy and evaluated by the Wound Care Services, receiving local wound care. Patient also was evaluated by the General Surgery service regarding questionable debridement of the decubitus ulcerations, however, was not deemed appropriate candidate for this modality of treatment. Patient was recommended for offloading the buttocks and increasing ambulation. Patient was also treated for mild acute kidney injury in the context of chronic kidney disease, stage 3, receiving IV fluids and avoiding nephrotoxic agents. Patient overall clinically stabilized and ambulated with Physical Therapy up to 156 feet. Current recommendations are to continue Home Health with Physical Therapy as well as wound care services. I have examined and discussed the followup instructions with the patient, who verbalized understanding and in agreement. The patient overall clinically stable and ready for discharge on 08/26/2018. DISCHARGE MEDICATIONS: 1. Augmentin 500 mg 1 tab p.o. b.i.d. x7 days. 2. Ferrous sulfate 325 mg p.o. b.i.d. 3. [place]-3 fatty acids 1000 mg p.o. daily. 4. Multivitamin 1 tablet p.o. daily. 5. Protonix 40 mg 1 tab p.o. daily. 6. Allopurinol 100 mg p.o. daily. 7. Aspirin 81 mg p.o. daily. 8. Coreg 6.25 mg p.o. b.i.d. 9. Vitamin B12 is 1000 mcg p.o. daily. 10. Folic acid 1 mg p.o. daily. 11. Lasix 20 mg one tablet p.o. daily. FOLLOWUP: Patient is to follow up with her primary care provider, Dr. Kendra Monzon, within 7 days of discharge. CONDITION ON DISCHARGE: Stable. ACTIVITY: Ad lilian. Rolling walker with contact guard assistance and general fall risk precautions. DIET: Heart healthy with fluid restriction to 1.5 L per 24 hours. CODE STATUS: Full. DISPOSITION: Home with Home Health Services through [facility], including physical therapy and wound care services. Total time preparing and coordinating discharge is 36 minutes. Job ID: [id number]
== END 2018-08-26 16:24 | disposition home health service (06) | DRG 872 ==
LOC: ERS 14:22 → ERHOLD 17:40 → 3SE 21:07 → ONC 08-23 17:12
PROVIDERS: ADMIT Emergency Medicine; ATTEND Emergency Medicine
DX: A41.9 Sepsis, unspecified organism (principal); I13.0 Hypertensive heart and chronic kidney disease with heart failure and stage 1 through stage 4 chronic kidney disease, or unspecified chronic kidney disease; I50.32 Chronic diastolic (congestive) heart failure; Z68.41 Body mass index [BMI] 40.0-44.9, adult; N17.9 Acute kidney failure, unspecified; E66.01 Morbid (severe) obesity due to excess calories; I87.2 Venous insufficiency (chronic) (peripheral); M10.9 Gout, unspecified; N18.3 Chronic kidney disease, stage 3 (moderate); K21.9 Gastro-esophageal reflux disease without esophagitis; J20.9 Acute bronchitis, unspecified; L89.152 Pressure ulcer of sacral region, stage 2; L89.892 Pressure ulcer of other site, stage 2; Z79.82 Long term (current) use of aspirin; Z83.3 Family history of diabetes mellitus; Z82.49 Family history of ischemic heart disease and other diseases of the circulatory system
CPT/HCPCS: 36415; 51701; 71045; 80048; 80053; 80202; 81003; 81015; 83605; 85025; 87040; 87086; 87804; 93005; 96361; 96365; 96367; A4353; J1650; J2543; J3370; J7050; J7620

== ENCOUNTER 2018-09-07 19:49 | Inpatient (IN) | payer MEDICARE ==
--- NOTE | 2018-09-07 20:37 | RAD ---
CHEST ONE VIEW 09/07/18 HISTORY: Altered mental status. COMPARISON: Radiograph 08/22/18. FINDINGS: Heart size is mildly enlarged. No focal air space consolidation, pneumothorax or effusion. No acute o sseous abnormality. IMPRESSION: No acute intrathoracic abnormality. POS: [facility]
[2018-09-07 21:14] LABS: #Basophils 0.1 thou/uL (0.0-0.2); #Eosinphils 0.9 thou/uL (0.0-0.7); #Lymphocytes 1.9 thou/uL (1.20-3.40); #Monocytes 0.6 thou/uL (0.11-0.59); #Neutrophils 6.5 thou/uL (1.40-6.50); %Basophils 0.9 % (0.0-1.0); %Eosinophils 8.7 % (0.0-10.0); %Lymphocytes 18.7 % (21.0-51.0); %Monocytes 6.3 % (0.0-10.0); %Neutrophils 65.4 % (42.0-75.0); Hemoglobin 6.9 g/dL (12.0-16.0); Mean Corpuscular Hemoglobin 28.9 pg (27.0-31.0); Mean Corpuscular Volume 90.3 fL (78.0-98.0); Mean Platelet Volume 7.2 fL (7.4-10.4); Platelet Count 360 thou/uL (130-400); RBC Distribution Width 15.4 % (11.5-14.5); White Blood Cell (WBC) Count 9.9 thou/uL (4.8-10.8)
[2018-09-07 21:32] LABS: Bilirubin Negative (Negative); Blood, Urine Negative (Negative); Clarity CLEAR (Clear); Glucose, Urine (Dipstick) Negative (Negative); Leukocyte Negative (Negative); Nitrite Negative (Negative); Protein, Urine (Dipstick) 100 mg/dL (Neg-Trace); Specific Gravity, Urine 1.013 (1.002-1.036); Urobilinogen 0.2 mg/dL (0.2-1.0)
[2018-09-07 21:33] LABS: Bacteria/HPF None Seen HPF (None Seen); Hyaline Casts/LPF 0-3 HYALINE CAST LPF (0-3 Hyaline); Pathc Cast-AUWi Flag 0.58 (0-2.49); RBC/HPF 0-3 HPF (0-3); Squamous Epithelial 0-3 HPF (0-3); WBC/HPF 0-3 HPF (0-3)
[2018-09-07 21:35] LABS: ALT (SGPT) Less than 7 U/L (8-55); AST (SGOT) 16 U/L (5-34); Albumin 3.5 g/dL (3.4-4.8); Alkaline Phosphatase 71 U/L (40-150); Anion Gap 16 mmol/L (10-20); BUN (Urea Nitrogen) 35 mg/dL (9.8-20.1); Bilirubin, Total 0.4 mg/dL (0.2-1.2); CK (CPK) 661 U/L (29-168); Calc. Creatinine Clearance 0 mL/min (70-130); Calcium 9.7 mg/dL (7.8-10.44); Carbon Dioxide 18 mmol/L (23-31); Chloride 111 mmol/L (98-107); Estimated GFR-MDRD 31; Globulin 4.7 g/dL (2.4-3.5); Glucose 113 mg/dL (83-110); Lipase 22 U/L (8-78); Potassium 4.6 mmol/L (3.5-5.1); Protein, Total 8.2 g/dL (6.0-8.3); Sodium 140 mmol/L (136-145)
[2018-09-07] MEDS ORDERED: MEROPENEM 1 GM/50 ML BAG IVPB SCH (21:45)
--- NOTE | 2018-09-07 23:57 | HP ---
PRIMARY CARE PHYSICIAN: Dr. Monzon. CHIEF COMPLAINT: Weakness. HISTORY OF PRESENT ILLNESS: The patient is a 72-year-old female with past medical history of congestive heart failure, morbid obesity, chronic lower extremity edema and stasis dermatitis, nonhealing ulcers, hypertension, gout, CKD stage 3, and gastroesophageal reflux, who presents to the emergency department for weakness. The patient was recently discharged from the hospital and she was admitted for sepsis. Sepsis protocol was initiated and the patient was treated with antibiotics. The patient was also evaluated by Wound Care Services. She was also seen by General Surgery and they determined that the patient is not a candidate for this modality of treatment. It was recommended that the patient do offloading and ambulation. The patient was clinically stable on 08/26, and was discharged subsequently. The patient is living with her brother at home per what she reported. The patient reports ulcers on her left leg and wounds that have been bleeding. The patient has swelling and sores on her left lower extremity and she has them wrapped because of sores that may start to ooze when she is fluid overloaded. The patient follows up with Home Health as well. The patient denies any chest pain, shortness of breath, abdominal pain, nausea, vomiting, or diarrhea. PAST MEDICAL HISTORY: Morbid obesity, chronic lower extremity edema with stasis dermatitis, nonhealing ulcers, hypertension, diastolic heart failure, CKD stage 3, and GERD. PAST SURGICAL HISTORY: Tubal ligation, left breast biopsy, cataract removal. SOCIAL HISTORY: Denies tobacco, alcohol, or illicit drug use. ALLERGIES: ALLERGIES TO NO CURRENT MEDICATIONS AT THIS POINT. CURRENT MEDICATIONS: The patient's current medications include: 1. Ferrous sulfate. 2. [place]-3 fatty acid. 3. Multivitamins. 4. Allopurinol. 5. Protonix. 6. Aspirin. 7. Coreg. 8. Vitamin B12. 9. Folic acid. 10. Lasix 20 mg daily. FAMILY HISTORY: Notable for diabetes and coronary artery disease. REVIEW OF SYSTEMS: CONSTITUTIONAL: The patient reports chills, but denies fever. Reports generalized weakness. EYES: No change in vision. ENT: Reports no sore throat. CARDIOVASCULAR: Denies any chest pain. RESPIRATORY: Denies any shortness of breath. GI: Denies any abdominal pain, nausea, vomiting, or diarrhea. : No dysuria. MUSCULOSKELETAL: Wounds. SKIN: See HPI. NEUROLOGIC: No changes noted. PHYSICAL EXAMINATION: VITAL SIGNS: Blood pressure 112/77, pulse 90, respiration rate 22, temperature 97.8, O2 saturation 100% on room air. GENERAL: The patient is morbidly obese and sleeping but is arousable and was able to have good composition. HEENT: Pupils are round and reactive to light. Oropharynx clear. No edema or exudate noted. NECK: No JVD noted. CARDIOVASCULAR: Regular rate and rhythm. No murmur, rubs, or gallops. LUNGS: Clear bilaterally. No wheezes, crackles, or rhonchi. ABDOMEN: Soft, nontender. Bowel sounds positive. EXTREMITIES: Left lower extremity, the patient has lymphedema. She also has wounds at her posterior decubitus as noted that are bleeding when she moves. No surrounding erythema. Does not seem to be tender. The patient's tibia and foot basically wrapped. NEUROLOGICAL: Alert. SKIN: As mentioned in the extremity examination. LABORATORY DATA: WBC 9.9, hemoglobin 6.8, hematocrit 21.6, platelets 360. Chemistry examination; sodium 140, potassium 4.6, chloride 111, bicarb 18, BUN 35, creatinine 1.91, glucose 113. BNP 208. Troponin 0.02. Urinalysis appears to be normal. Chest x-ray, no acute abnormality noted. EKG is reviewed and negative for any ST-segment elevation. ASSESSMENT AND PLAN: 1. Posterior left decubitus wounds. These seem to be chronic wound that seems unresolved and may be worsening. Review of chart indicated the patient was admitted with similar wounds and Wound Care was consulted then. The patient was sent home with Augmentin for 7 days. Appears the wounds may be bleeding. The patient was given Merrem and vancomycin in the ER. We will continue both the medications. Blood cultures ordered. Wound Care consult placed. We will continue to monitor labs. 2. Anemia of chronic disease, likely due to chronic kidney disease versus bleeding from her wounds versus combination. Review of chart indicated that the patient' s hemoglobin has been low between 8 and 7. The patient is on iron supplement twice per day. We will continue the iron supplement at this point. The patient was given 1 unit of PRBC in the ER. We will check hemoglobin after the transfusion is complete. The patient will be given Lasix as her home medication. Transfuse for Hgb < 7 3. History of chronic kidney disease. Pharmacy to dose medication renally. Trend labs daily. 4. Debility. PT and OT consulted. Consider discharge to a long term facility until her wounds improve. 5. The patient's DVT prophylaxis. We will use only SCDs due to anemia. 6. Medical power of securities attorney. The patient wants her sister to make decisions for her if she is not able to and the patient is full code at this point. 7. Review of chart indicate that pt has multiple admission recently. Given her co-morbidities and multiple readmission, I would recommend palliative care consult. Job ID: [id number] MTDD
[2018-09-08] MEDS ORDERED: Ondansetron ODT 4 MG TAB PO PRN
[2018-09-08] MEDS ORDERED: HYDROcodone/Acetaminophen 5/325 mg Tablet PO PRN
[2018-09-08] MEDS ORDERED: Acetaminophen 325 MG TAB PO PRN
[2018-09-08 01:33] LABS: Actual Bicarbonate (HCO3a) 22.6 mEq/L (22-28); Base Excess (BEa) -2.2 mEq/L (-2.0 to +3.0); CO2 Tension 38.6 mmHg (35.0-45.0); Hemoglobin (Hb) 8.7 g/dL (12.0-16.0); Potassium - ABG Lab 4.33 mmol/L (3.70-5.30); pH, Arterial 7.39 (7.35-7.45)
[2018-09-08 01:34] LABS: Puncture Site RRA
[2018-09-08 01:36] LABS: #Basophils 0.1 thou/uL (0.0-0.2); #Eosinphils 0.7 thou/uL (0.0-0.7); #Lymphocytes 1.6 thou/uL (1.20-3.40); #Monocytes 0.5 thou/uL (0.11-0.59); #Neutrophils 4.6 thou/uL (1.40-6.50); %Basophils 0.7 % (0.0-1.0); %Eosinophils 9.7 % (0.0-10.0); %Lymphocytes 21.1 % (21.0-51.0); %Monocytes 6.1 % (0.0-10.0); %Neutrophils 62.5 % (42.0-75.0); Hemoglobin 8.7 g/dL (12.0-16.0); Mean Corpuscular HGB CONC 29.6 g/dL (32.0-36.0); Mean Corpuscular Hemoglobin 27.5 pg (27.0-31.0); Mean Corpuscular Volume 92.8 fL (78.0-98.0); Mean Platelet Volume 7.9 fL (7.4-10.4); Platelet Count 254 thou/uL (130-400); RBC Distribution Width 15.7 % (11.5-14.5); Red Blood Cell (RBC) Count 3.15 mill/uL (4.20-5.40); White Blood Cell (WBC) Count 7.4 thou/uL (4.8-10.8)
--- NOTE | 2018-09-08 01:54 | PDOC.EVN ---
Event Note - Event Note Event Note: RN attempted to obtain consent for transfusion. Pt will not wake up. Vitals SBP 117. HR 70s, O2 sat 100% on RA. ABG WNL and Ammonia low. Given that pt was not waking up jayden hernandez was called. Pt did wake up and answer questions after painful stimuli. Pt was noted to be Oriented and she was tell that she is at the hospital for weakness. Likely pt was in deep sleep. Hgb on repeat was 8.7. f /u on CT head w/o contrast and AM lab.
[2018-09-08] MEDS ORDERED: Furosemide 20 MG/2 ML VIAL SLOW IVP SCH (02:00)
[2018-09-08 02:14] VITALS: BMI 36.9
[2018-09-08] MEDS ORDERED: Vancomycin HCl 1.25 GM in Sodium Chloride 0.9% 250 ML 250 ML IVPB SCH (09:00)
[2018-09-08] MEDS: Folic Acid 1 MG TAB PO SCH (09:27)
[2018-09-08] MEDS: Ferrous Sulfate 325 MG TAB PO SCH ×2 (09:28→21:37)
[2018-09-08] MEDS: Furosemide 20 MG TAB PO SCH (09:28)
[2018-09-08 10:18] LABS: #Lymphocytes 1.3 thou/uL (1.20-3.40); #Monocytes 0.5 thou/uL (0.11-0.59); #Neutrophils 5.4 thou/uL (1.40-6.50); %Basophils 0.6 % (0.0-1.0); %Eosinophils 12.4 % (0.0-10.0); %Lymphocytes 15.3 % (21.0-51.0); %Monocytes 6.5 % (0.0-10.0); %Neutrophils 65.2 % (42.0-75.0); Hemoglobin 11.3 g/dL (12.0-16.0); Mean Corpuscular HGB CONC 30.9 g/dL (32.0-36.0); Mean Corpuscular Hemoglobin 28.5 pg (27.0-31.0); Mean Corpuscular Volume 92.3 fL (78.0-98.0); Mean Platelet Volume 7.3 fL (7.4-10.4); Platelet Count 289 thou/uL (130-400); RBC Distribution Width 15.4 % (11.5-14.5); Red Blood Cell (RBC) Count 3.96 mill/uL (4.20-5.40); White Blood Cell (WBC) Count 8.2 thou/uL (4.8-10.8)
[2018-09-08 10:41] LABS: Anion Gap 15 mmol/L (10-20); BUN (Urea Nitrogen) 30 mg/dL (9.8-20.1); Calc. Creatinine Clearance 51 mL/min (70-130); Calcium 9.4 mg/dL (7.8-10.44); Carbon Dioxide 20 mmol/L (23-31); Chloride 114 mmol/L (98-107); Estimated GFR-MDRD 37; Potassium 4.8 mmol/L (3.5-5.1); Sodium 144 mmol/L (136-145)
[2018-09-08] MEDS: MEROPENEM 1 GM/50 ML 1 GM in Premix Bag 1 BAG IVPB SCH ×2 (10:51→21:33)
[2018-09-08 10:56] LABS: Glucose 59 mg/dL (83-110)
--- NOTE | 2018-09-08 11:57 | PDOC.PN ---
- Subjective Encounter Start Date: 09/08/18 Encounter Start Time: 11:00 Subjective: awake, responding well to verbal stimuli -: is moving all extremities -: stays with her sister and her son helps out if needed - Objective Resuscitation Status - Order Detail: 09/07/18 23:07 Resuscitation Status Routine Resuscitation Status: FULL: Full Resuscitation MAR Reviewed: Yes Vital Signs & Weight: Vital Signs (12 hours) Temp Pulse Pulse Pulse Pulse Resp Resp 09/08/18 11:00 97.3 F L 82 20 09/08/18 08:00 09/08/18 07:40 97.6 F 79 20 09/08/18 04:45 97.5 F L 73 16 09/08/18 02:11 97.4 F L 72 16 09/08/18 01:50 97.6 F 76 16 09/08/18 01:20 74 16 09/08/18 01:11 82 18 09/08/18 01:10 82 74 18 09/08/18 00:45 76 16 Resp BP BP BP BP BP Pulse Ox 09/08/18 11:00 115/63 100 09/08/18 08:00 100 09/08/18 07:40 111/66 100 09/08/18 04:45 121/74 98 09/08/18 02:11 110/63 09/08/18 01:50 103/67 98 09/08/18 01:20 114/62 98 09/08/18 01:11 112/71 100 09/08/18 01:10 16 112/71 114/62 09/08/18 00:45 107/67 100 Pulse Ox Pulse Ox 09/08/18 11:00 09/08/18 08:00 09/08/18 07:40 09/08/18 04:45 09/08/18 02:11 09/08/18 01:50 09/08/18 01:20 09/08/18 01:11 09/08/18 01:10 100 98 09/08/18 00:45 Weight Weight 228 lb 11.2 oz I&O: 09/07/18 09/08/18 09/09/18 06:59 06:59 06:59 Intake Total 350 Balance 350 Result Diagrams: 09/08/18 10:01 09/08/18 10:01 Additional Labs: Accuchecks 09/08/18 09/08/1809/08/19 11:25 05:15 02:12 POC Glucose 86 75 104 09/08/18 00:56 POC Glucose 93 Phys Exam - Physical Examination HEENT: PERRLA, moist MMs Neck: no JVD, supple Respiratory: no wheezing, no rales Cardiovascular: RRR, no significant murmur Gastrointestinal: soft, non-tender, positive bowel sounds mulitple decub including sacral area Neurological: non-focal, moves all 4 limbs Psychiatric: A&O x 3 Dx/Plan (1) Decubitus ulcer Code(s): L89.90 - PRESSURE ULCER OF UNSPECIFIED SITE, UNSPECIFIED STAGE Status : Chronic Comment: multiple decub in both LE, sacral area (2) Anemia Code(s): D64.9 - ANEMIA, UNSPECIFIED Status: Chronic Qualifiers: Anemia type: due to chronic kidney disease Chronic kidney disease stage: stage 3 (moderate) Qualified Code(s): N18.3 - Chronic kidney disease, stage 3 (moderate); D63.1 - Anemia in chronic kidney disease (3) CKD (chronic kidney disease), stage III Status: Chronic (4) Chronic diastolic (congestive) heart failure Code(s): I50.32 - CHRONIC DIASTOLIC (CONGESTIVE) HEART FAILURE Status: Chronic Comment: stable (5) Morbid obesity Code(s): E66.01 - MORBID (SEVERE) OBESITY DUE TO EXCESS CALORIES Status: Chronic (6) PAD (peripheral artery disease) Code(s): I73.9 - PERIPHERAL VASCULAR DISEASE, UNSPECIFIED Status: Chronic (7) Venous insufficiency of both lower extremities Code(s): I87.2 - VENOUS INSUFFICIENCY (CHRONIC) (PERIPHERAL) Status: Chronic - Plan has multiple decub due to poor functional status -: says she mobilizes and uses walker at home but mostly is on bed -: is on meropenem and vanc, wound care, ?surg debribement -: poor prognosis -: continue coreg, asp, mvi, feso4, folic acid, B12, and lasix * . Review of Systems - Medications/Allergies Allergies/Adverse Reactions: Allergies Allergy/AdvReac Type Severity Reaction Status Date / Time No Known Drug Allergies Allergy Verified 09/08/18 02:16 Medications: Current Medications Acetaminophen (Tylenol) 650 mg PO Q4H PRN PRN Reason: Headache/Fever/Mild Pain (1-3) Hydrocodone Bitart/Acetaminophen ([place] 5/325) 1 tab PO Q4H PRN PRN Reason: Moderate Pain (4-6) Allopurinol (Zyloprim) 100 mg PO DAILY [facility] Aspirin (Aspirin) 81 mg PO DAILY [facility] Carvedilol (Coreg) 6.25 mg PO BID [facility] Cyanocobalamin (Vitamin B-12) 1,000 mcg PO DAILY [facility] Ferrous Sulfate (Feosol) 325 mg PO BID [facility] Last Admin: 09/08/18 09:28 Dose: 325 mg Fish Oil (Fish Oil) 1,000 mg PO DAILY [facility] Folic Acid (Folvite) 1 mg PO DAILY [facility] Last Admin: 09/08/18 09:27 Dose: 1 mg Furosemide (Lasix) 20 mg PO DAILY [facility] Last Admin: 09/08/18 09:28 Dose: 20 mg Furosemide (Lasix) 10 mg SLOW IVP ONE [facility] Stop: 09/08/18 12:00 Last Admin: 09/08/18 05:10 Dose: 10 mg Meropenem 1 gm/ Device 50 mls @ 100 mls/hr IVPB 1000,2200 [facility] Last Admin: 09/08/18 10:51 Dose: 50 mls Vancomycin HCl 1.5 gm/ Sodium (Chloride) 300 mls @ 200 mls/hr IVPB 2100 [facility] Miscellaneous Medication (Pharmacy To Dose) 1 each IVPB PRN PRN PRN Reason: . Non-Formulary Medication (Multivitamin/Iron/Folic Acid [Centrum Adults Tablet]) 1 each PO DAILY [facility] Ondansetron HCl (Zofran Odt) 4 mg PO Q6H PRN PRN Reason: Nausea/Vomiting Pantoprazole Sodium (Protonix) 40 mg PO DAILY [facility]
--- NOTE | 2018-09-08 17:24 | CT ---
PRELIMINARY REPORT/[facility]/EMERGENTY AFTER-HOURS PROCEDURE CT Head Without Contrast EXAM DATE/TIME: 09/08/2018 1:35 AM CLINICAL HISTORY: 72 years old, female; Signs and symptoms; Altered mental status/memory loss; Confusion or disorientat ion; Patient HX: Ams/ unresponsive TECHNIQUE: Axial computed tomography images of the head/brain without contrast. COMPARISON: No relevant prior studies available. FINDINGS: Brain: Volume loss and chronic small vessel ischemic change. Old lacunar infarction(s). No brain yamel a. No intracranial hemorrhage. Ventricles: Normal. No ventriculomegaly. Bones/joints: Unremarkable. No acute fracture. Sinuses: Visualized sinuses are unremarkable. No acute sinusitis. Mastoid air cells: Visualized mastoid air cells are unremarkable. No mastoid effusion. Soft tissues: Unremarkable. IMPRESSION: No acute brain findings. Thank you for allowing us to participate in the care of your patient. Dictated and Authenticated by: Castro Wong MD 09/08/2018 1:50 AM Central Time ([place] & [place]) FINAL REPORT CT OF THE BRAIN WITHOUT CONTRAST: EMERGENT AFTER HOURS EXAM COMPARISON: 04/20/2018. FINDINGS/IMPRESSION: I agree with the findings and impression given in the preliminary report per [facility] physician. Small- vessel ischemic disease without acute intracranial abnormality. POS: FRANCIE
[2018-09-08] MEDS: Vancomycin HCl 1.5 GM in Sodium Chloride 0.9% 250 ML 300 ML IVPB SCH (21:33)
[2018-09-08] MEDS: Carvedilol 6.25 MG TAB PO SCH (21:39)
[2018-09-09] MEDS: Multivitamin W/ Minerals 1 TAB PO SCH (08:25)
[2018-09-09] MEDS: Cyanocobalamin (Vitamin B-12) 1,000 MCG TAB PO SCH (08:25)
[2018-09-09] MEDS: Allopurinol 100 MG TAB PO SCH (08:25)
[2018-09-09] MEDS: Furosemide 20 MG TAB PO SCH (08:25)
[2018-09-09] MEDS: Ferrous Sulfate 325 MG TAB PO SCH ×2 (08:25→21:32)
[2018-09-09] MEDS: Fish Oil 1,000 MG CAP PO SCH (08:25)
[2018-09-09] MEDS: Folic Acid 1 MG TAB PO SCH (08:25)
[2018-09-09] MEDS: Carvedilol 6.25 MG TAB PO SCH ×2 (08:26→21:32)
[2018-09-09] MEDS: Aspirin Chewable 81 MG TAB PO SCH (08:26)
[2018-09-09 09:50] LABS: Anion Gap 13 mmol/L (10-20); BUN (Urea Nitrogen) 25 mg/dL (9.8-20.1); Calc. Creatinine Clearance 47 mL/min (70-130); Calcium 8.2 mg/dL (7.8-10.44); Carbon Dioxide 19 mmol/L (23-31); Chloride 115 mmol/L (98-107); Estimated GFR-MDRD 33; Glucose 94 mg/dL (83-110); Potassium 4.6 mmol/L (3.5-5.1); Sodium 142 mmol/L (136-145)
[2018-09-09] MEDS: MEROPENEM 1 GM/50 ML 1 GM in Premix Bag 1 BAG IVPB SCH ×2 (10:47→21:43)
--- NOTE | 2018-09-09 11:41 | PDOC.PN ---
- Subjective Encounter Start Date: 09/09/18 Encounter Start Time: 11:30 Subjective: awake, feels better -: is eating well, no pain - Objective Resuscitation Status - Order Detail: 09/07/18 23:07 Resuscitation Status Routine Resuscitation Status: FULL: Full Resuscitation MAR Reviewed: Yes Vital Signs & Weight: Vital Signs (12 hours) Temp Pulse Resp BP BP BP Pulse Ox 09/09/18 08:26 117/66 09/09/18 07:25 98.0 F 78 22 H 117/66 99 09/09/18 07:22 98 F 78 20 117/66 09/09/18 00:00 98.3 F 83 20 108/61 96 Weight Admit Weight 228 lb 11.2 oz Weight 228 lb 11.2 oz I&O: 09/08/18 09/09/18 09/10/18 06:59 06:59 06:59 Intake Total 350 1465 Output Total 200 Balance 350 1265 Result Diagrams: 09/08/18 10:01 09/09/18 08:57 Additional Labs: Accuchecks 09/09/18 09/09/18 09/08/18 11:05 05:15 20:05 POC Glucose 83 78 103 09/08/18 09/08/18 09/08/18 16:21 12:48 11:25 POC Glucose 103 89 86 Phys Exam - Physical Examination HEENT: PERRLA, moist MMs Neck: no JVD, supple Respiratory: no wheezing, no rales Cardiovascular: RRR, no significant murmur Gastrointestinal: soft, non-tender, positive bowel sounds Musculoskeletal: pulses present, edema present multiple decub over sacral, legs+ Neurological: non-focal, moves all 4 limbs Psychiatric: A&O x 3 Dx/Plan (1) Decubitus ulcer Code(s): L89.90 - PRESSURE ULCER OF UNSPECIFIED SITE, UNSPECIFIED STAGE Status : Chronic Qualifiers: Pressure injury location: sacral region Comment: multiple decub in both LE, sacral area (2) Anemia Code(s): D64.9 - ANEMIA, UNSPECIFIED Status: Chronic Qualifiers: Anemia type: due to chronic kidney disease Chronic kidney disease stage: stage 3 (moderate) Qualified Code(s): N18.3 - Chronic kidney disease, stage 3 (moderate); D63.1 - Anemia in chronic kidney disease (3) CKD (chronic kidney disease), stage III Status: Chronic (4) Chronic diastolic (congestive) heart failure Code(s): I50.32 - CHRONIC DIASTOLIC (CONGESTIVE) HEART FAILURE Status: Chronic Comment: stable (5) Morbid obesity Code(s): E66.01 - MORBID (SEVERE) OBESITY DUE TO EXCESS CALORIES Status: Chronic (6) PAD (peripheral artery disease) Code(s): I73.9 - PERIPHERAL VASCULAR DISEASE, UNSPECIFIED Status: Chronic (7) Venous insufficiency of both lower extremities Code(s): I87.2 - VENOUS INSUFFICIENCY (CHRONIC) (PERIPHERAL) Status: Chronic - Plan is on meropenem and vanc, wound care -: not sure if wound cultures were obtained on admission -: is on lasix, coreg, asp, oral iron, folic acid, B12 and mvi -: PT to mobilize as tolerated to offload ulcers -: counselled pt to keep pressure off ulcers to heal * . will need placement if family is ok with it. Review of Systems - Medications/Allergies Allergies/Adverse Reactions: Allergies Allergy/AdvReac Type Severity Reaction Status Date / Time No Known Drug Allergies Allergy Verified 09/08/18 02:16 Medications: Current Medications Acetaminophen (Tylenol) 650 mg PO Q4H PRN PRN Reason: Headache/Fever/Mild Pain (1-3) Hydrocodone Bitart/Acetaminophen ([place] 5/325) 1 tab PO Q4H PRN PRN Reason: Moderate Pain (4-6) Allopurinol (Zyloprim) 100 mg PO DAILY [facility] Last Admin: 09/09/18 08:25 Dose: 100 mg Aspirin (Aspirin Chewable) 81 mg PO DAILY [facility] Last Admin: 09/09/18 08:26 Dose: 81 mg Carvedilol (Coreg) 6.25 mg PO BID [facility] Last Admin: 09/09/18 08:26 Dose: 6.25 mg Cyanocobalamin (Vitamin B-12) 1,000 mcg PO DAILY [facility] Last Admin: 09/09/18 08:25 Dose: 1,000 mcg Ferrous Sulfate (Feosol) 325 mg PO BID [facility] Last Admin: 09/09/18 08:25 Dose: 325 mg Fish Oil (Fish Oil) 1,000 mg PO DAILY [facility] Last Admin: 09/09/18 08:25 Dose: 1,000 mg Folic Acid (Folvite) 1 mg PO DAILY [facility] Last Admin: 09/09/18 08:25 Dose: 1 mg Furosemide (Lasix) 20 mg PO DAILY [facility] Last Admin: 09/09/18 08:25 Dose: 20 mg Meropenem 1 gm/ Device 50 mls @ 100 mls/hr IVPB 1000,2200 [facility] Last Admin: 09/09/18 10:47 Dose: 50 mls Vancomycin HCl 1.5 gm/ Sodium (Chloride) 300 mls @ 200 mls/hr IVPB 2100 [facility] Last Admin: 09/08/18 21:33 Dose: 300 mls Iron/Minerals/Multivitamins (Theragran M) 1 tab PO DAILY [facility] Last Admin: 09/09/18 08:25 Dose: 1 tab Miscellaneous Medication (Pharmacy To Dose) 1 each IVPB PRN PRN PRN Reason: . Ondansetron HCl (Zofran Odt) 4 mg PO Q6H PRN PRN Reason: Nausea/Vomiting Pantoprazole Sodium (Protonix) 40 mg PO DAILY [facility] Last Admin: 09/09/18 08:26 Dose: 40 mg
[2018-09-09 21:48] LABS: Vancomycin, Trough 17.5 ug/mL
[2018-09-09] MEDS: Vancomycin HCl 1.5 GM in Sodium Chloride 0.9% 250 ML 300 ML IVPB SCH (22:02)
[2018-09-10 06:12] LABS: Anion Gap 10 mmol/L (10-20); BUN (Urea Nitrogen) 23 mg/dL (9.8-20.1); Calc. Creatinine Clearance 51 mL/min (70-130); Calcium 8.3 mg/dL (7.8-10.44); Carbon Dioxide 23 mmol/L (23-31); Chloride 114 mmol/L (98-107); Estimated GFR-MDRD 37; Glucose 82 mg/dL (83-110); Potassium 4.8 mmol/L (3.5-5.1); Sodium 142 mmol/L (136-145)
[2018-09-10] MEDS: Fish Oil 1,000 MG CAP PO SCH (08:30)
[2018-09-10] MEDS: Allopurinol 100 MG TAB PO SCH (08:31)
[2018-09-10] MEDS: Ferrous Sulfate 325 MG TAB PO SCH ×2 (08:31→20:22)
[2018-09-10] MEDS: Carvedilol 6.25 MG TAB PO SCH ×2 (08:32→20:22)
[2018-09-10] MEDS: Folic Acid 1 MG TAB PO SCH (08:34)
[2018-09-10] MEDS: Cyanocobalamin (Vitamin B-12) 1,000 MCG TAB PO SCH (08:35)
[2018-09-10] MEDS: Multivitamin W/ Minerals 1 TAB PO SCH (08:35)
[2018-09-10] MEDS: Aspirin Chewable 81 MG TAB PO SCH (08:35)
[2018-09-10] MEDS: Furosemide 20 MG TAB PO SCH (08:36)
[2018-09-10] MEDS: MEROPENEM 1 GM/50 ML 1 GM in Premix Bag 1 BAG IVPB SCH ×2 (10:38→20:22)
--- NOTE | 2018-09-10 13:09 | PDOC.PN ---
- Subjective Encounter Start Date: 09/10/18 Encounter Start Time: 12:00 Subjective: is awake and oriented -: has amb around 40ft with PT - Objective Resuscitation Status - Order Detail: 09/07/18 23:07 Resuscitation Status Routine Resuscitation Status: FULL: Full Resuscitation MAR Reviewed: Yes Vital Signs & Weight: Vital Signs (12 hours) Temp Pulse Resp BP BP Pulse Ox 09/10/18 08:32 128/74 09/10/18 07:21 98.0 F 67 20 106/68 99 09/10/18 07:15 98 F 76 20 106/68 99 Weight Admit Weight 228 lb 11.2 oz Weight 228 lb 11.2 oz I&O: 09/09/18 09/10/18 09/11/18 06:59 06:59 06:59 Intake Total 1465 695 Output Total 200 400 Balance 1265 295 Result Diagrams: 09/08/18 10:01 09/10/18 04:42 Additional Labs: Accuchecks 09/10/18 09/10/18 09/09/18 10:39 04:39 20:19 POC Glucose 83 91 106 09/09/18 15:55 POC Glucose 100 Phys Exam - Physical Examination HEENT: PERRLA, moist MMs Neck: no JVD, supple Respiratory: no wheezing, no rales Cardiovascular: RRR, no significant murmur Gastrointestinal: soft, non-tender, positive bowel sounds Musculoskeletal: no edema, pulses present Neurological: non-focal, moves all 4 limbs Psychiatric: A&O x 3 Dx/Plan (1) Decubitus ulcer Code(s): L89.90 - PRESSURE ULCER OF UNSPECIFIED SITE, UNSPECIFIED STAGE Status : Chronic Qualifiers: Pressure injury location: sacral region Comment: multiple decub in both LE, sacral area (2) Anemia Code(s): D64.9 - ANEMIA, UNSPECIFIED Status: Chronic Qualifiers: Anemia type: due to chronic kidney disease Chronic kidney disease stage: stage 3 (moderate) Qualified Code(s): N18.3 - Chronic kidney disease, stage 3 (moderate); D63.1 - Anemia in chronic kidney disease (3) CKD (chronic kidney disease), stage III Status: Chronic (4) Chronic diastolic (congestive) heart failure Code(s): I50.32 - CHRONIC DIASTOLIC (CONGESTIVE) HEART FAILURE Status: Chronic Comment: stable (5) Morbid obesity Code(s): E66.01 - MORBID (SEVERE) OBESITY DUE TO EXCESS CALORIES Status: Chronic (6) PAD (peripheral artery disease) Code(s): I73.9 - PERIPHERAL VASCULAR DISEASE, UNSPECIFIED Status: Chronic (7) Venous insufficiency of both lower extremities Code(s): I87.2 - VENOUS INSUFFICIENCY (CHRONIC) (PERIPHERAL) Status: Chronic - Plan is on meropenem and vanc -: wound care -: to amb as tolerated -: needs to offload ulcers, oob to chair and ambulate more -: is on asp, coreg, lasix, iron, folic acid and mvi * . Review of Systems - Medications/Allergies Allergies/Adverse Reactions: Allergies Allergy/AdvReac Type Severity Reaction Status Date / Time No Known Drug Allergies Allergy Verified 09/08/18 02:16 Medications: Current Medications Acetaminophen (Tylenol) 650 mg PO Q4H PRN PRN Reason: Headache/Fever/Mild Pain (1-3) Hydrocodone Bitart/Acetaminophen ([place] 5/325) 1 tab PO Q4H PRN PRN Reason: Moderate Pain (4-6) Allopurinol (Zyloprim) 100 mg PO DAILY [facility] Last Admin: 09/10/18 08:31 Dose: 100 mg Aspirin (Aspirin Chewable) 81 mg PO DAILY [facility] Last Admin: 09/10/18 08:35 Dose: 81 mg Carvedilol (Coreg) 6.25 mg PO BID [facility] Last Admin: 09/10/18 08:32 Dose: 6.25 mg Cyanocobalamin (Vitamin B-12) 1,000 mcg PO DAILY [facility] Last Admin: 09/10/18 08:35 Dose: 1,000 mcg Ferrous Sulfate (Feosol) 325 mg PO BID [facility] Last Admin: 09/10/18 08:31 Dose: 325 mg Fish Oil (Fish Oil) 1,000 mg PO DAILY [facility] Last Admin: 09/10/18 08:30 Dose: 1,000 mg Folic Acid (Folvite) 1 mg PO DAILY [facility] Last Admin: 09/10/18 08:34 Dose: 1 mg Furosemide (Lasix) 20 mg PO DAILY [facility] Last Admin: 09/10/18 08:36 Dose: 20 mg Meropenem 1 gm/ Device 50 mls @ 100 mls/hr IVPB 1000,2200 [facility] Last Admin: 09/10/18 10:38 Dose: 50 mls Vancomycin HCl 1.5 gm/ Sodium (Chloride) 300 mls @ 200 mls/hr IVPB 2100 [facility] Last Admin: 09/09/18 22:02 Dose: 300 mls Iron/Minerals/Multivitamins (Theragran M) 1 tab PO DAILY [facility] Last Admin: 09/10/18 08:35 Dose: 1 tab Miscellaneous Medication (Pharmacy To Dose) 1 each IVPB PRN PRN PRN Reason: . Ondansetron HCl (Zofran Odt) 4 mg PO Q6H PRN PRN Reason: Nausea/Vomiting Pantoprazole Sodium (Protonix) 40 mg PO DAILY [facility] Last Admin: 09/10/18 08:34 Dose: 40 mg
[2018-09-10 22:00] LABS: Vancomycin, Trough 23.3 ug/mL
[2018-09-10] MEDS: Vancomycin HCl 1.5 GM in Sodium Chloride 0.9% 250 ML 300 ML IVPB SCH (22:54)
[2018-09-10] MEDS ORDERED: Vancomycin HCl 1.25 GM in Sodium Chloride 0.9% 250 ML 250 ML IVPB SCH (23:00)
[2018-09-11 07:34] LABS: Anion Gap 12 mmol/L (10-20); BUN (Urea Nitrogen) 19 mg/dL (9.8-20.1); Calc. Creatinine Clearance 57 mL/min (70-130); Calcium 8.6 mg/dL (7.8-10.44); Carbon Dioxide 22 mmol/L (23-31); Chloride 114 mmol/L (98-107); Estimated GFR-MDRD 42; Glucose 100 mg/dL (83-110); Potassium 4.8 mmol/L (3.5-5.1); Sodium 143 mmol/L (136-145)
[2018-09-11] MEDS: Folic Acid 1 MG TAB PO SCH (08:18)
[2018-09-11] MEDS: Carvedilol 6.25 MG TAB PO SCH ×2 (08:19→19:57)
[2018-09-11] MEDS: Ferrous Sulfate 325 MG TAB PO SCH ×2 (08:19→19:57)
[2018-09-11] MEDS: Multivitamin W/ Minerals 1 TAB PO SCH (08:19)
[2018-09-11] MEDS: Fish Oil 1,000 MG CAP PO SCH (08:19)
[2018-09-11] MEDS: Cyanocobalamin (Vitamin B-12) 1,000 MCG TAB PO SCH (08:20)
[2018-09-11] MEDS: Allopurinol 100 MG TAB PO SCH (08:20)
[2018-09-11] MEDS: Furosemide 20 MG TAB PO SCH (08:21)
[2018-09-11] MEDS: Aspirin Chewable 81 MG TAB PO SCH (08:23)
[2018-09-11] MEDS: MEROPENEM 1 GM/50 ML 1 GM in Premix Bag 1 BAG IVPB SCH (10:15)
--- NOTE | 2018-09-11 12:03 | PDOC.PN ---
- Subjective Encounter Start Date: 09/11/18 Encounter Start Time: 07:00 Subjective: awake, feels better -: has amb 180ft with PT yesterday - Objective Resuscitation Status - Order Detail: 09/07/18 23:07 Resuscitation Status Routine Resuscitation Status: FULL: Full Resuscitation MAR Reviewed: Yes Vital Signs & Weight: Vital Signs (12 hours) Temp Pulse Resp BP BP Pulse Ox 09/11/18 11:47 98 F 65 20 150/80 H 100 09/11/18 08:19 133/74 09/11/18 08:00 99 09/11/18 07:24 97.9 F 81 18 133/74 99 Weight Admit Weight 228 lb 11.2 oz Weight 228 lb 11.2 oz I&O: 09/10/18 09/11/18 09/12/18 06:59 06:59 06:59 Intake Total 695 240 Output Total 400 1200 Balance 295 -1200 240 Result Diagrams: 09/08/18 10:01 09/11/18 06:47 Additional Labs: Accuchecks 09/11/18 09/10/18 09/10/18 04:41 19:54 16:59 POC Glucose 76 113 H 100 Phys Exam - Physical Examination HEENT: PERRLA, moist MMs Neck: no JVD, supple Respiratory: no wheezing, no rales Cardiovascular: RRR, no significant murmur Gastrointestinal: soft, non-tender, positive bowel sounds Musculoskeletal: pulses present, edema present Neurological: non-focal, moves all 4 limbs Psychiatric: normal affect, A&O x 3 Dx/Plan (1) Decubitus ulcer Code(s): L89.90 - PRESSURE ULCER OF UNSPECIFIED SITE, UNSPECIFIED STAGE Status : Chronic Qualifiers: Pressure injury location: sacral region Comment: multiple decub in both LE, sacral area (2) Anemia Code(s): D64.9 - ANEMIA, UNSPECIFIED Status: Chronic Qualifiers: Anemia type: due to chronic kidney disease Chronic kidney disease stage: stage 3 (moderate) Qualified Code(s): N18.3 - Chronic kidney disease, stage 3 (moderate); D63.1 - Anemia in chronic kidney disease (3) CKD (chronic kidney disease), stage III Status: Chronic (4) Chronic diastolic (congestive) heart failure Code(s): I50.32 - CHRONIC DIASTOLIC (CONGESTIVE) HEART FAILURE Status: Chronic Comment: stable (5) Morbid obesity Code(s): E66.01 - MORBID (SEVERE) OBESITY DUE TO EXCESS CALORIES Status: Chronic (6) PAD (peripheral artery disease) Code(s): I73.9 - PERIPHERAL VASCULAR DISEASE, UNSPECIFIED Status: Chronic (7) Venous insufficiency of both lower extremities Code(s): I87.2 - VENOUS INSUFFICIENCY (CHRONIC) (PERIPHERAL) Status: Chronic - Plan dc plan in am on oral cipro and flagyl -: continue meropenem and vanc x 1 day -: for help to set up outpt wound care with -: continue asp, coreg, lasix, iron, mvi * . Review of Systems - Medications/Allergies Allergies/Adverse Reactions: Allergies Allergy/AdvReac Type Severity Reaction Status Date / Time No Known Drug Allergies Allergy Verified 09/08/18 02:16 Medications: Current Medications Acetaminophen (Tylenol) 650 mg PO Q4H PRN PRN Reason: Headache/Fever/Mild Pain (1-3) Hydrocodone Bitart/Acetaminophen ([place] 5/325) 1 tab PO Q4H PRN PRN Reason: Moderate Pain (4-6) Allopurinol (Zyloprim) 100 mg PO DAILY [facility] Last Admin: 09/11/18 08:20 Dose: 100 mg Aspirin (Aspirin Chewable) 81 mg PO DAILY [facility] Last Admin: 09/11/18 08:23 Dose: 81 mg Carvedilol (Coreg) 6.25 mg PO BID [facility] Last Admin: 09/11/18 08:19 Dose: 6.25 mg Cyanocobalamin (Vitamin B-12) 1,000 mcg PO DAILY [facility] Last Admin: 09/11/18 08:20 Dose: 1,000 mcg Ferrous Sulfate (Feosol) 325 mg PO BID [facility] Last Admin: 09/11/18 08:19 Dose: 325 mg Fish Oil (Fish Oil) 1,000 mg PO DAILY [facility] Last Admin: 09/11/18 08:19 Dose: 1,000 mg Folic Acid (Folvite) 1 mg PO DAILY [facility] Last Admin: 09/11/18 08:18 Dose: 1 mg Furosemide (Lasix) 20 mg PO DAILY [facility] Last Admin: 09/11/18 08:21 Dose: 20 mg Meropenem 1 gm/ Device 50 mls @ 100 mls/hr IVPB 1000,2200 [facility] Last Admin: 09/11/18 10:15 Dose: 50 mls Vancomycin HCl 1.25 gm/ Sodium (Chloride) 250 mls @ 166.667 mls/hr IVPB 2300 [facility] Last Admin: 09/10/18 23:30 Dose: 250 mls Iron/Minerals/Multivitamins (Theragran M) 1 tab PO DAILY [facility] Last Admin: 09/11/18 08:19 Dose: 1 tab Miscellaneous Medication (Pharmacy To Dose) 1 each IVPB PRN PRN PRN Reason: . Ondansetron HCl (Zofran Odt) 4 mg PO Q6H PRN PRN Reason: Nausea/Vomiting Pantoprazole Sodium (Protonix) 40 mg PO DAILY [facility] Last Admin: 09/11/18 08:20 Dose: 40 mg
[2018-09-11] MEDS: metroNIDAZOLE 250 MG TAB PO SCH (19:57)
[2018-09-11] MEDS: Cipro 250 MG TAB PO SCH (19:58)
[2018-09-12] MEDS: Cipro 250 MG TAB PO SCH (05:40)
[2018-09-12 07:20] LABS: Anion Gap 11 mmol/L (10-20); BUN (Urea Nitrogen) 18 mg/dL (9.8-20.1); Calc. Creatinine Clearance 60 mL/min (70-130); Calcium 8.7 mg/dL (7.8-10.44); Carbon Dioxide 25 mmol/L (23-31); Chloride 111 mmol/L (98-107); Estimated GFR-MDRD 44; Glucose 74 mg/dL (83-110); Potassium 5.1 mmol/L (3.5-5.1); Sodium 142 mmol/L (136-145)
[2018-09-12] MEDS: Folic Acid 1 MG TAB PO SCH (07:50)
[2018-09-12] MEDS: Fish Oil 1,000 MG CAP PO SCH (07:50)
[2018-09-12] MEDS: Allopurinol 100 MG TAB PO SCH (07:51)
[2018-09-12] MEDS: metroNIDAZOLE 250 MG TAB PO SCH (07:51)
[2018-09-12] MEDS: Furosemide 20 MG TAB PO SCH (07:52)
[2018-09-12] MEDS: Multivitamin W/ Minerals 1 TAB PO SCH (07:52)
[2018-09-12] MEDS: Ferrous Sulfate 325 MG TAB PO SCH (07:52)
[2018-09-12] MEDS: Aspirin Chewable 81 MG TAB PO SCH (07:52)
[2018-09-12] MEDS: Cyanocobalamin (Vitamin B-12) 1,000 MCG TAB PO SCH (07:53)
[2018-09-12] MEDS: Carvedilol 6.25 MG TAB PO SCH (07:53)
--- NOTE | 2018-09-12 12:06 | PDOC.PN ---
- Subjective Encounter Start Date: 09/12/18 Encounter Start Time: 07:30 Subjective: feels good, no pain over wounds in her legs -: has amb around 220ft with rw and PT - Objective Resuscitation Status - Order Detail: 09/07/18 23:07 Resuscitation Status Routine Resuscitation Status: FULL: Full Resuscitation MAR Reviewed: Yes Vital Signs & Weight: Vital Signs (12 hours) Temp Pulse Resp BP BP Pulse Ox 09/12/18 08:00 99 09/12/18 07:53 126/66 09/12/18 07:29 97.9 F 78 19 126/66 99 Weight Admit Weight 228 lb 11.2 oz Weight 228 lb 11.2 oz I&O: 09/11/18 09/12/18 09/13/18 06:59 06:59 06:59 Intake Total 720 Output Total 1200 Balance -1200 720 Result Diagrams: 09/08/18 10:01 09/12/18 06:40 Additional Labs: Accuchecks 09/12/18 09/11/18 09/11/18 04:47 19:26 16:34 POC Glucose 78 120 H 99 09/11/18 11:51 POC Glucose 79 Phys Exam - Physical Examination HEENT: PERRLA, moist MMs Neck: no JVD, supple Respiratory: no wheezing, no rales Cardiovascular: RRR, no significant murmur Gastrointestinal: soft, non-tender, positive bowel sounds Musculoskeletal: pulses present, edema present Neurological: non-focal, moves all 4 limbs Psychiatric: normal affect, A&O x 3 Dx/Plan (1) Decubitus ulcer Code(s): L89.90 - PRESSURE ULCER OF UNSPECIFIED SITE, UNSPECIFIED STAGE Status : Chronic Qualifiers: Pressure injury location: sacral region Comment: multiple decub in both LE, sacral area (2) Anemia Code(s): D64.9 - ANEMIA, UNSPECIFIED Status: Chronic Qualifiers: Anemia type: due to chronic kidney disease Chronic kidney disease stage: stage 3 (moderate) Qualified Code(s): N18.3 - Chronic kidney disease, stage 3 (moderate); D63.1 - Anemia in chronic kidney disease (3) CKD (chronic kidney disease), stage III Status: Chronic (4) Chronic diastolic (congestive) heart failure Code(s): I50.32 - CHRONIC DIASTOLIC (CONGESTIVE) HEART FAILURE Status: Chronic Comment: stable (5) Morbid obesity Code(s): E66.01 - MORBID (SEVERE) OBESITY DUE TO EXCESS CALORIES Status: Chronic (6) PAD (peripheral artery disease) Code(s): I73.9 - PERIPHERAL VASCULAR DISEASE, UNSPECIFIED Status: Chronic (7) Venous insufficiency of both lower extremities Code(s): I87.2 - VENOUS INSUFFICIENCY (CHRONIC) (PERIPHERAL) Status: Chronic - Plan hemostable -: cipro,flagyl x 6 days -: wound care with has been set up -: dc pt home with COLEMAN andBRIANNE * .
[2018-09-12 13:15] VITALS: BP 171/81; TEMP 97.4
--- NOTE | 2018-09-12 13:38 | DIS ---
DATE OF ADMISSION: 09/07/2018 DATE OF DISCHARGE: 09/12/2018 DISCHARGE DISPOSITION: To home with Home Health. PRIMARY DISCHARGE DIAGNOSES: 1. Multiple decubitus ulcerations over the legs and sacral area. 2. Chronic anemia. 3. Chronic diastolic heart failure, stage B. 4. Chronic kidney disease stage 3. 5. Morbid obesity. 6. Peripheral vascular disease. 7. Chronic venous insufficiency of both lower extremities. PROCEDURES DONE DURING HOSPITALIZATION: Chest x-ray done showed no acute intrathoracic abnormalities. CT brain done showed no acute findings. Blood cultures x2, no growth. H and H were 11 and 36, platelet count 289. The patient got transfused with 1 unit of packed cells for hemoglobin of 6.9 and 21 on the day of admission. Discharge BUN and creatinine are 18 and 1.4. BNP 208. Initial BUN and creatinine were 35 and 1.9. Albumin levels are 3.5. DISCHARGE MEDICATIONS: 1. Ciprofloxacin 250 mg p.o. twice daily for 6 days. 2. Flagyl 250 mg p.o. three times daily for 6 days. 3. Folic acid 1 mg daily. 4. Vitamin B12 1000 mcg p.o. daily. 5. Aspirin 81 mg p.o. daily. 6. Allopurinol 100 mg p.o. twice daily. 7. Protonix 40 mg p.o. daily. 8. Multivitamin with folic acid one tablet daily. 9. Furosemide 20 mg twice daily. 10. Fish oil 1000 mg p.o. daily. 11. Ferrous sulfate 325 mg p.o. twice daily. 12. Coreg 12.5 mg p.o. twice daily. ALLERGIES: NO KNOWN DRUG ALLERGIES. DISCHARGE PLAN: The patient to follow up with Dr. Meredith with wound care in a week and primary care physician in one week. BRIEF COURSE DURING HOSPITALIZATION: The patient initially was brought to emergency room for generalized weakness and multiple wounds, which were oozing. The patient had multiple decubitus ulcers over both lower extremities and sacrum and posteromedial thighs and buttock area. She has had wound cultures drawn and wound care was involved. She was on broad-spectrum IV antibiotics. The patient also had initial hemoglobin of around 6 g and was given 1 unit of packed cell. She was deconditioned initially, but has managed to ambulate nearly 220 feet with rolling walker. The patient is wanting to go home with Home Health. Case Management consultation was requested for help with setting up outpatient wound care consultation with Dr. Meredith. This has been accomplished and her son will be driving her [facility]. Home Health with PT and Wound Care will be set up at home as well. She is hemodynamically stable and will be shortly discharged home. Please see a [id number] documentation for the day of discharge on [employer]. Job ID: [id number]
--- NOTE | 2018-09-16 17:03 | PQF ---
S[employer] Box [employer]am[employer] Crystal Reports Win[employer] SENTHIL Barton ZUBAIR [id number] [id number] CLINICAL DOCUMENTATION CLARIFICATION FORM: POST DISCHARGE Please check appropriate box(es): [ ] Sepsis [ ] with organ dysfunction [ ] without organ dysfunction [ X ] Localized infection without sepsis [ ] Other diagnosis [ ] Unable to determine CLINICAL INDICATORS - SIGNS / SYMPTOMS / LABS 09/07 ER DOCTORS NOTE, "...APPEARS TO HAVE INFECTED DECUBITI WITH CONCERNS FOR SEPSIS..." 09/07 H&P HPI, "PATIENT WAS RECENTLY DISCHARGED FROM THE HOSPITAL AND SHE WAS ADMITTED FOR SEPSIS" 09/07 H&P, PATIENT REPORTS CHILLS, BUT DENIES FEVER. 09/08 TEMP 97.4 L RISK FACTORS NON-HEALING ULCERS 09/07 H&P CELLULITIS LEFT POSTERIOR DECUBITI 09/07 ER TREATMENTS: Blood/sputum/wound cultures 09/07 LABS, NO GROWTH IS 5 DAYS IV antibiotics - broad spectrum IV Fuids (This form is maintained as a part of the permanent medical record) 2014 [email or web address], [employer]. All Rights Reserved Pooja [email or web address] [phone] MTDD
== END 2018-09-12 13:23 | disposition home health service (06) | DRG 602 ==
LOC: ERS 19:49 → T4-A 23:53
PROVIDERS: ADMIT Family Medicine; ATTEND Family Medicine
PROC: 30233N1 Transfusion of Nonautologous Red Blood Cells into Peripheral Vein, Percutaneous Approach (ICD-10-PCS; principal; 2018-09-07)
DX: L03.116 Cellulitis of left lower limb (principal); L89.153 Pressure ulcer of sacral region, stage 3; I13.0 Hypertensive heart and chronic kidney disease with heart failure and stage 1 through stage 4 chronic kidney disease, or unspecified chronic kidney disease; I50.32 Chronic diastolic (congestive) heart failure; D63.1 Anemia in chronic kidney disease; E11.51 Type 2 diabetes mellitus with diabetic peripheral angiopathy without gangrene; I87.2 Venous insufficiency (chronic) (peripheral); E11.22 Type 2 diabetes mellitus with diabetic chronic kidney disease; N18.3 Chronic kidney disease, stage 3 (moderate); L89.329 Pressure ulcer of left buttock, unspecified stage; L89.319 Pressure ulcer of right buttock, unspecified stage; L89.899 Pressure ulcer of other site, unspecified stage; E66.01 Morbid (severe) obesity due to excess calories; Z68.36 Body mass index [BMI] 36.0-36.9, adult; K21.9 Gastro-esophageal reflux disease without esophagitis; Z79.82 Long term (current) use of aspirin
CPT/HCPCS: 36415; 36416; 36430; 51701; 70450; 71045; 80048; 80053; 80202; 81003; 81015; 82140; 82550; 82805; 83605; 83690; 83880; 84484; 85025; 86850; 86900; 86901; 87040; 93005; 94760; 96361; 96365; 96368; A4353; J1940; J2185; J3370; J7050; P9016

== ENCOUNTER 2019-04-01 18:54 | Inpatient (IN) | payer MEDICARE ==
[~2019-04-01 18:54] MED LIST: ISOVUE-370 76%-LOCM 1 ML ONE
[2019-04-01] MEDS ORDERED: Rocuronium Bromide 10 MG/ML (10ML VIAL) ONE (19:00)
[2019-04-01] MEDS ORDERED: Sodium Bicarb 50 MEQ/50 ML VIAL ONE ×2 (19:13→19:14)
[2019-04-01] MEDS ORDERED: Sodium Bicarbonate 2.5 MEQ/5 ML VIAL ONE (19:14)
[2019-04-01] MEDS ORDERED: Piperacillin/Tazobactam 4.5 GM VIAL ONE (19:20)
[2019-04-01 19:24] LABS: Hemoglobin 12.1 g/dL (12.0-16.0); Mean Corpuscular HGB CONC 30.5 g/dL (32.0-36.0); Mean Corpuscular Hemoglobin 31.2 pg (27.0-31.0); Mean Platelet Volume 9.5 fL (7.4-10.4); Platelet Count 187 thou/uL (130-400); RBC Distribution Width 15.1 % (11.5-14.5); Red Blood Cell (RBC) Count 3.88 mill/uL (4.20-5.40)
[2019-04-01] MEDS ORDERED: Fentanyl 100 MCG/2 ML VIAL ONE (19:26)
[2019-04-01] MEDS ORDERED: Nitroglycerin 50 MG/250 ML BOT 250 ML ONE (19:29)
[2019-04-01] MEDS ORDERED: fentaNYL Citrate/PF 2,000 MCG in Sodium Chloride 0.9% 60 ML IV SCH ×2 (19:33→20:45)
--- NOTE | 2019-04-01 19:33 | RAD ---
Chest AP view INDICATION: Trauma COMPARISON: September 07, 2018 FINDINGS: Lungs:There are perihilar airspace opacities suspicious for hemorrhage or edema Cardiac silhouette:There is mild cardiomegaly Pulmonary vasculature:Mild pulmonary vascular congestion Pleural spaces:No pleural effusion or pneumothorax is demonstrated. Upper abdomen:No abnormality seen. Osseous structures: No acute osseous abnormality. Additional findings:The patient is intubated with the ET tube seen 4 cm above the level of fran. Ga stric catheter projects below the left hemidiaphragm and beyond the [id number]. IMPRESSION: Mild cardiomegaly with pulmonary vascular congestion and perihilar edema suspicious for C HF. Perihilar opacities could reflect perihilar hemorrhage in light of patient's history of trauma. ET tube and gastric catheter as above.
[2019-04-01] MEDS ORDERED: Metoprolol Tartrate 5 MG/5 ML VIAL ONE (19:40)
[2019-04-01 19:42] LABS: Band 2 % (5-11); Eosinophils 5 % (0-10); Hypochromia SLIGHT = 6-15 cells (100X) (0-5/hpf); Lymphocytes 76 % (21-51); MDiff Complete? YES; Macrocytosis SLIGHT = 6-15 cells (100X) (0-5/hpf); Monocytes 1 % (0-10); Neutrophil 14 % (42-75); Platelet Morphology Comment Appears Adequate; Polychromasia SLIGHT = 2-3 cells (100X) (0-2/hpf); Reactive Lymphocytes 2 % (0-10)
[2019-04-01 19:44] LABS: ALT (SGPT) 306 U/L (8-55); AST (SGOT) 309 U/L (5-34); Albumin 3.5 g/dL (3.4-4.8); Alkaline Phosphatase 148 U/L (40-150); Anion Gap 21 mmol/L (10-20); BUN (Urea Nitrogen) 52 mg/dL (9.8-20.1); Bilirubin, Total 0.2 mg/dL (0.2-1.2); CK (CPK) 113 U/L (29-168); Calc. Creatinine Clearance 0 mL/min (70-130); Calcium 8.5 mg/dL (7.8-10.44); Carbon Dioxide 14 mmol/L (23-31); Chloride 110 mmol/L (98-107); Estimated GFR-MDRD 22; Globulin 3.2 g/dL (2.4-3.5); Glucose 221 mg/dL (83-110); Potassium 5.2 mmol/L (3.5-5.1); Protein, Total 6.7 g/dL (6.0-8.3); Sodium 140 mmol/L (136-145)
[2019-04-01 19:48] LABS: Actual Bicarbonate (HCO3a) 17.2 mEq/L (22-28); Analyzer IN Cardio ER; Base Excess (BEa) -13.1 mEq/L (-2.0 to +3.0); Calcium, Ionized 1.11 mmol/L (1.12-1.30); Carboxyhemoglobin (COHb) 0.3 gm% (0.0-3.0); Hemoglobin (Hb) 11.4 g/dL (12.0-16.0); O2 Tension (PaO2) 130.6 mmHg (> 70.0); Potassium - ABG Lab 5.02 mmol/L (3.70-5.30)
[2019-04-01 19:59] LABS: ALV-art Gradient 149.275 (0-20); CO2 Tension 61.3 mmHg (35.0-45.0); Puncture Site RRA; pH, Arterial 7.07 (7.35-7.45)
[2019-04-01] MEDS ORDERED: Ondansetron ODT 4 MG TAB PO PRN (20:31)
[2019-04-01] MEDS ORDERED: Ondansetron PF 4 MG/2 ML Vial IVP PRN (20:31)
[2019-04-01] MEDS ORDERED: Acetaminophen 325 MG TAB PO PRN (20:31)
--- NOTE | 2019-04-01 20:32 | CT ---
CT head noncontrast HISTORY: Altered mental status. COMPARISON: 09/08/2018. FINDINGS: There is no evidence of acute intracranial hemorrhage or infarct. Chronic ischemic small ve ssel disease is again demonstrated and is not significantly changed. Motion artifact obscures detail. There is no mass effect or shift of midline structures. Fluid layers within the dependent por tion of the left maxillary sinus. Endotracheal catheter is partially visualized. IMPRESSION: No acute intracranial abnormalities are demonstrated.
[2019-04-01] MEDS ORDERED: Ventilator Sedation Protocol 1 EACH FS ONE (20:33)
[2019-04-01] MEDS ORDERED: Propofol 1,000 MG/100 ML VIAL IV ONE (20:37)
[2019-04-01] MEDS ORDERED: Propofol BOLUS 1,000 MG/100 ML VIAL IV PRN (20:45)
[2019-04-01] MEDS ORDERED: Morphine 2 MG/ML SYRINGE SLOW IVP PRN (20:45)
[2019-04-01] MEDS ORDERED: Propofol 1,000 MG/100 ML VIAL IV PRN (20:45)
[2019-04-01] MEDS ORDERED: Fentanyl BOLUS 250 ML IVPB PRN (20:45)
[2019-04-01] MEDS ORDERED: DISCONTINUE PREVIOUS NARCOTIC PAIN MEDICATIONS AND BENZODIAZEPINES FS SCH (20:45)
[2019-04-01] MEDS ORDERED: Lorazepam 2 MG/ML VIAL SLOW IVP PRN (20:45)
--- NOTE | 2019-04-01 20:51 | CT ---
CTA OF THE THORAX WITH IV CONTRAST AND 3D REFORMATTED IMAGIN04/01/19 INDICATION: Unwitnessed cardiac arrest with chest tightness. COMPARISON: None. FINDINGS: There is prominent perihilar air space opacities with more prominent consolidation involving both low er lobes. There is interstitial prominence suspicious for edema. The patient is intubated with a gregorio mook catheter in place. No central or segmental pulmonary embolus is evident. There is small pleural e ffusion. No pneumothorax is evident. No acute osseous abnormality is evident. There are scattered deg enerative and osteoarthritic change. IMPRESSION: 1. No central or segmental pulmonary embolus. 2. Perihilar air space opacities with more prominent consolidation involving both lower lobes. T here is interstitial edema. There are small bilateral pleural effusions. The findings are suspicious for cardiac decompensation and CHF. More karma areas of consolidation may reflect prominent pulmonary edema; however, aspiration pneumonia could also have a similar appearance. 3. Intubation and gastric catheter placement. POS: BH
[2019-04-01 21:19] LABS: Bacteria/HPF None Seen HPF (None Seen); Bilirubin Negative (Negative); Blood, Urine 2+ (Negative); Clarity Turbid (Clear); Glucose, Urine (Dipstick) 150 mg/dL (Negative); Leukocyte Negative Leu/uL (Negative); Nitrite Negative (Negative); Protein, Urine (Dipstick) 300 mg/dL (Neg-Trace); RBC/HPF Greater than 50 HPF (0-3); Urobilinogen Normal mg/dL (Less than 2)
[2019-04-01] MEDS ORDERED: Aspirin 300 MG Suppository ONE ×2 (21:26→21:33)
[2019-04-01 22:41] LABS: Troponin I 0.152 ng/mL (< 0.028)
--- NOTE | 2019-04-01 23:53 | HP ---
PRIMARY CARE PHYSICIAN: Kendra Monzon MD CODE STATUS: Full code. TIME OF EVALUATION: 9:00 p.m. CHIEF COMPLAINT: Sudden cardiac arrest. HISTORY OF PRESENT ILLNESS: This is a 73-year-old female patient with past medical history of morbid obesity, hypertension, diastolic heart failure, chronic kidney disease stage 3, and GERD. The patient came to the hospital after having sudden cardiac arrest. As per son, the patient was sitting and started having shortness of breath and she was diaphoretic. Symptoms were sudden, were severe. After a few seconds, the patient collapsed. EMS was called. The patient was found by EMS and patient went into PEA, then regain pulse after a few minutes, please see EMS records for details. . She was brought into the hospital for that reason. EKG showed some possible ischemia with T-wave inversion in anterolateral leads. Initially, after regaining spontaneous circulation, the patient was hypertensive needing some nitroglycerin drip and some sedation. By the time of my examination, all these medications have been discontinued. The patient has regained her baseline vital signs that remains normal at this point. The patient is just receiving sedation with fentanyl, initially also presented with severe respiratory acidosis with pH 7.0, although the very first one was in the 6.9, so appears to have been recovering after intubation. The patient also had severe metabolic acidosis with carbon dioxide, in the BMP of 14.Pt is stable, remains critical, she will be placed in ICU. We will consult Pulmonary and we will consult Cardiology, Dr. Prado has been called. Case has been discussed with him by ER physician and plan is to see the patient in the morning. As of now, initial troponin was negative. We will trend troponins overnight. REVIEW OF SYSTEMS: Unable to obtain. The patient is intubated and sedated. PAST MEDICAL HISTORY: As mentioned in the HPI. PAST SURGICAL HISTORY: Tubal ligation, left breast biopsy, cataract removal. FAMILY HISTORY: Reviewed and noncontributory to current presentation. SOCIAL HISTORY: No tobacco, alcohol, or illicit drugs. ALLERGIES: NO SIGNIFICANT ALLERGIES REPORTED. MEDICATIONS: As per previous records, the patient was taking; 1. Ferrous sulfate. 2. [place]-3 fatty acid. 3. Multivitamins. 4. Allopurinol. 5. Protonix. 6. Aspirin. 7. Coreg. 8. Vitamin B12. 9. Folic acid. 10. Lasix 20 mg daily. We are working on updating these medications with our nursing staff and family. FAMILY HISTORY: The patient has a history of diabetes and coronary artery disease. PHYSICAL EXAMINATION: VITAL SIGNS: On presentation, heart rate 139, blood pressure went up to 224/ 130. These vitals have improved after initial sedation and treatment with nitroglycerin IV. GENERAL APPEARANCE: The patient is intubated and sedated. RESPIRATORY: The patient has decreased bilateral air entry, likely due to obesity. Bilateral transmitted sounds from upper respiratory area. There are some foamy secretions in the tube that are pinky. There is bilateral air entry in expansion. CARDIOVASCULAR: Regular rhythm. Normal rate. No significant murmurs. Blood pressure within normal limits. ABDOMEN: Soft. The patient is morbidly obese. Bowel sounds are present and normal. EXTREMITIES: The patient has some chronic skin changes in tropism and color due to chronic wounds in bilateral lower extremities that are still in graft. The patient has been going to Wound Care for this reason. SKIN: Warm, intact, except for the skin in bilateral lower extremities and also in the buttock area, which the patient has pressure ulcers stage II that has been healing. NEUROLOGIC: Unable to fully explore. The patient is intubated and sedated. Pinpoint reveals no evidence of any focal weakness been noticed during the patient arrival or during my examination. PSYCHIATRIC: Unable to explore. DIAGNOSTIC FINDINGS: EKG was reviewed. The patient has sinus tachycardia at the rate of 119, CO 200, QRS 98, QT corrected 441. The patient has T-wave inversion in lead 1, 2 and V3 to V6 with no significant ST elevation. There was also some age-related ST depression in these leads. The chest x-ray was reviewed. The patient has mild cardiomegaly with pulmonary vascular congestion and very rare edema suspicion for CHF and linear opacity could reflect cerebral hemorrhage in light of patient's history of trauma. ET tube and gastric catheter were in the right position. The CT angio of the chest was done. The patient has no central segmental pulmonary embolism. Perihilar airspace opacities with more prominent consolidation involving both lower lobes. There is interstitial edema. There is small bilateral pleural effusion. The findings are suspicious for cardiac conversation with CHF or karma areas of consolidation may reflect prominent pulmonary edema. However, aspiration pneumonia could also be at a similar appearance, intubation and gastric catheter placement. Brain CT was done. No acute intracranial abnormalities are demonstrated. LABORATORY DATA: Reviewed. The patient has white count 6.0, hemoglobin 12.1, MCV 102, and platelet count 187. Blood gas; pH 7.07, PO2 of 130, and pCO2 of 61.3. This was done on SIMV and mechanical rate 22, inspired oxygen 50%, tidal volume 450 with PEEP of 5. Chemistry; sodium 140, potassium 5.2, chloride 110, carbon dioxide 14, anion gap 21, BUN 52 with creatinine 2.59, the previous creatinine in August was 1.42, glucose 221, calcium 9.5, total bilirubin 0.2. LFTs; AST was 309, on previous admission was normal and the same with ALT that was 306. CK 113. Troponin was negative. Serum total protein was 6.7, albumin 3.5. ASSESSMENT AND PLAN: The patient will be placed in the hospital with following medical problems: 1. Acute congestive heart failure exacerbation. The patient had symptoms on presentation and history relates to a cardiac etiology. The patient went into cardiac arrest. The patient recovered spontaneous circulation after EMS got to the site and did CPR, the patient developed PEA and for that reason, she was intubated. The patient after recovery then developed severe hypertension. All these signs have improved after initial approach in the ER. The patient has remained stable and critical. ABG has continued to improve after intubation. Cardiology has been consulted. Troponin was negative. As of now, we do not have any evidence of any severe acute coronary syndrome. Seems more in favor of congestive heart failure. We will continue to monitor in ICU. We will place the patient on diureses and we will follow Cardiology recommendations. 2. Acute hypercarbic respiratory failure. The patient has respiratory acidosis with CO2 retention of 61 and the second ABG showed this has been improving. We will continue the same settings and we will repeat ABG in the morning. 3. Hyperkalemia. This is mild. Potassium 5.2. We will monitor and treat accordingly. No need for any acute intervention at this point. 4. Severe anion gap metabolic acidosis, likely secondary to acute on chronic kidney injury. The patient has a bicarb of 14 and creatinine of 2.5. This could be prerenal secondary to cardiac arrest. We will continue to monitor and there may be also a component of a cardiorenal syndrome. The patient will need diuresis and we will monitor kidney function. If not improving, might need Nephrology for assistance with fluid balance in the scenario of kidney failure. 5. Hyperglycemia with glucose 221. No clear history of diabetes. The patient' s son reported that she was diagnosed at some point with diabetes, but then she has been controlled with diet. No medications for it. We will monitor this could be secondary to stress and we will treat accordingly. 6. High LFTs with AST 309 and ALT 306. This was normal in previous admission, so this more likely is secondary to shock liver. We will monitor and trend and treat accordingly. 7. Systolic heart failure with EF of 45% to 50% seen on previous echo. Please see above for treatment. 8. Deep venous thrombosis prophylaxis. 9. 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 We will consult Wound Care in inpatient care. 10. Morbid obesity. The patient has been trying to lose weight and has been losing weight for the past year; it should be encouraged once the patient is able to. Critical care time > 35 min spent in bedside assessment, family counseling, , records review, medication reconciliation, stabilization of pt Job ID: [id number]
[2019-04-02] MEDS ORDERED: Vancomycin HCl 500 MG in Sodium Chloride 0.9% 100 ML IVPB SCH (00:30)
[2019-04-02 02:01] LABS: Troponin I 0.461 ng/mL (< 0.028)
[2019-04-02] MEDS: Piperacillin/Tazobactam 3.375 GM in Sodium Chloride 0.9% 100 ML IVPB SCH ×4 (02:27→20:15)
[2019-04-02] MEDS: Nitroglycerin 50 MG/250 ML BOT 250 ML IVPB SCH ×3 (02:30→22:41)
[2019-04-02] MEDS ORDERED: Piperacillin/Tazobactam 4.5 GM in Sodium Chloride 0.9% 100 ML IVPB SCH (03:00)
[2019-04-02 04:51] LABS: #Monocytes 0.8 thou/uL (0.11-0.59); #Neutrophils 13.8 thou/uL (1.40-6.50); %Basophils 0.1 % (0.0-1.0); %Lymphocytes 6.5 % (21.0-51.0); %Neutrophils 88.3 % (42.0-75.0); Hemoglobin 10.5 g/dL (12.0-16.0); Mean Corpuscular HGB CONC 32.7 g/dL (32.0-36.0); Mean Corpuscular Hemoglobin 30.2 pg (27.0-31.0); Mean Corpuscular Volume 92.3 fL (78.0-98.0); Platelet Count 207 thou/uL (130-400); RBC Distribution Width 14.6 % (11.5-14.5); Red Blood Cell (RBC) Count 3.48 mill/uL (4.20-5.40); White Blood Cell (WBC) Count 15.6 thou/uL (4.8-10.8)
[2019-04-02 05:00] LABS: Anion Gap 15 mmol/L (10-20); BUN (Urea Nitrogen) 60 mg/dL (9.8-20.1); Calc. Creatinine Clearance 37 mL/min (70-130); Calcium 8.4 mg/dL (7.8-10.44); Carbon Dioxide 20 mmol/L (23-31); Chloride 111 mmol/L (98-107); Estimated GFR-MDRD 24; Glucose 199 mg/dL (83-110); Potassium 4.8 mmol/L (3.5-5.1); Sodium 141 mmol/L (136-145)
[2019-04-02 07:49] LABS: Actual Bicarbonate (HCO3a) 19.3 mEq/L (22-28); Base Excess (BEa) -3.9 mEq/L (-2.0 to +3.0); Calcium, Ionized 1.08 mmol/L (1.12-1.30); Carboxyhemoglobin (COHb) 0.7 gm% (0.0-3.0); Hemoglobin (Hb) 10.8 g/dL (12.0-16.0); O2 Tension (PaO2) 113.9 mmHg (> 70.0); Potassium - ABG Lab 4.73 mmol/L (3.70-5.30); Puncture Site RBA; pH, Arterial 7.44 (7.35-7.45)
[2019-04-02] MEDS: Enoxaparin Sodium 30 MG/0.3 ML SYRINGE SC SCH (08:11)
[2019-04-02] MEDS: Pantoprazole 40 MG VIAL IVP SCH (08:35)
[2019-04-02] MEDS ORDERED: Pantoprazole 40 MG VIAL IVP SCH (09:00)
--- NOTE | 2019-04-02 12:11 | CON ---
DATE OF CONSULTATION: HISTORY OF PRESENT ILLNESS: Cinthya Olivas is a 73-year-old morbidly obese female, presumed weight is 114 kg. Her son is at the bedside, who gives adequate history. He took his mom in a car to a car battery shop. When she went to the bathroom, she came back unable to breathe, short of breath and apparently, had cardiac arrest. Apparently, CPR was initiated there. She was given three rounds of epinephrine and atropine. Took about 5 minutes according to the son . She was intubated and transferred to the ICU. Son states that she has never smoked. No history of substance abuse or drug abuse. She sees a local physician, Dr. Monzon. PAST MEDICAL HISTORY: Pertinent for sores in the leg. She receives wound care at home. Hypertension, diabetes, morbid obesity, and UTI. She had been in and out of the hospital numerous times, in fact she was just recently discharged six months ago with a diagnosis of decubitus ulcer in leg and sacrum, anemia, diastolic dysfunction, renal failure, and peripheral vascular disease. MEDICATIONS: Home medicine includes mainly allopurinol 100, Lasix 20, vitamin, and Coreg 12.5 twice a day. Home medicine as outlined, includes also Flagyl apparently. Her last echocardiogram was done about a year ago, which showed that she had an EF of 50%, some diastolic dysfunction. PAST SURGICAL HISTORY: Previous surgeries otherwise included surgeries; cataract, tubal ligation, and left breast biopsy. ALLERGIES: NO ALLERGIES. REVIEW OF SYSTEMS: Unobtainable. PHYSICAL EXAMINATION: GENERAL: She is on no sedation, remains unresponsive. HEENT: Pupils are 2 mm. VITAL SIGNS: Blood pressure is slightly elevated 180/90, pulse 80, respirations 18, and saturations 100%. CHEST: Decreased breath sounds. No wheezing. CARDIAC: Normal S1 and S2. No gallops. ABDOMEN: Soft and massive. EXTREMITIES: Trace edema. NEUROLOGIC: Unresponsive. LABORATORY DATA: A pO2 of 113, pCO2 of 29, pH 7.44, 50%, 22 rate. White count 15,000, H and H 10 and 32, and platelet count is 207. Creatinine is 2.4. IMPRESSION: 1. Diastolic dysfunction. 2. Status post cardiac arrest. Apparently, she was , epinephrine and atropine was given. 3. Anoxic injury. 4. Renal failure. 5. Stasis. 6. Diabetes. EGD was ordered. Echo is being ordered. Continue supportive care. Son is at bedside, who gave adequate history. Probably consult Neurology in the next 24 to 48 hours, if did not wake up. This is a 45-minute critical care time. Job ID: [id number]
--- NOTE | 2019-04-02 13:34 | CON ---
DATE OF CONSULTATION: HISTORY OF PRESENT ILLNESS: Cinthya Olivas is a 73-year-old black female, admitted after cardiac arrest at home. I have previously evaluated her in June 2015. At that time, she was found sitting in her car, minimally responsive, very short of breath and was in flash pulmonary edema. Echocardiogram revealed ejection fraction of 50% to 55% with [id number] mitral regurgitation, mild left atrial enlargement, and mild tricuspid regurgitation. It was felt that she had diastolic heart failure. Due to her renal insufficiency, she did not undergo cardiac catheterization at that time. She was seen in the office on August 17, 2015 and denied any dyspnea after she had been discharged. She was to undergo further evaluation with Lexiscan Cardiolite testing. She also had bilateral leg ulcers and was to undergo arterial brachial index and bilateral venous duplex scan. However, she never returned for followup and I have not seen her since that time. She has had multiple admissions over the years for urinary tract infection, sepsis, and lower extremity venous ulcerations and multiple decubital ulcerations of the sacral area. Most recent admission was in August 2018. Yesterday, she was sitting, started having acute shortness of breath and diaphoresis. After a few seconds, she then collapsed. EMS was called. When they arrive, she was in pulseless electrical activity. CPR was performed and epinephrine given and pulse returned. After regaining spontaneous circulation, she was extremely hypertensive, has been placed on nitroglycerin drip. Initial blood gas showed a pH of 7.07, pCO2 of 61.3, and pO2 of 130.6. PAST MEDICAL HISTORY: 1. Pyoderma gangrenosum. 2. Chronic deconditioning. 3. Morbid obesity. 4. Gout. 5. Hypertension. 6. Diabetes. 7. GERD. 8. Chronic kidney disease. 9. Chronic leg ulcers. 10. Diastolic heart failure with flash pulmonary edema in June 2015. 11. Noncompliance with office followup and outpatient testing. PAST SURGICAL HISTORY: Operations; cataract surgery, tubal ligation, and left breast biopsy. MEDICATIONS: Medications are unclear; however, on last discharge, she was on; 1. Allopurinol 100 b.i.d. 2. Aspirin 81 daily. 3. Carvedilol 12.5 b.i.d. 4. Cipro 250. 5. B12 of 1000 mcg daily. 6. Ferrous sulfate 325 b.i.d. 7. Fish oil 1000 daily. 8. Folic acid 1 mg daily. 9. Furosemide 20 mg b.i.d. 10. Flagyl 250 t.i.d. 11. Pantoprazole 40 daily. ALLERGIES: NONE. SOCIAL HISTORY: She does not smoke or drink. REVIEW OF SYSTEMS: Unobtainable due to the patient being unresponsive and ventilated. FAMILY HISTORY: Positive for coronary artery disease. PHYSICAL EXAMINATION: VITAL SIGNS: Blood pressure 174/72 and pulse of 69, sinus rhythm. HEENT: PERRL. CHEST: Clear. CARDIAC: S1 and S2 normal without any S3 or S4. There is a 1-2/6 systolic murmur in the aortic area and along the left sternal border. ABDOMEN: Obese. Normal bowel sounds. No tenderness. EXTREMITIES: Revealed no significant edema. She has chronic wounds on her lower extremities. NEUROLOGIC: The patient has been off sedation and is totally unresponsive. LABORATORY DATA: EKG reveals normal sinus rhythm with no ST-segment elevation. She does have downsloping ST segments and inverted T-waves in I, aVL, lead II, aVR, and V3 through V6. These ST and T-wave changes are new from previous EKG in August 2018. Hemoglobin 10.5, hematocrit 32.1, white count 15,600, and platelets 207, 000. Sodium 141, potassium 4.8, chloride 111, carbon dioxide 20, BUN 60, creatinine 2.40, AST 309, and ALT 306. Troponin I 0.461. IMPRESSION: 1. Cardiopulmonary arrest. The patient had acute onset of shortness of breath and was in pulseless electrical activity when paramedics arrived. CPR was performed as well as being given epinephrine. She had return of spontaneous circulation. 2. Probably severe hypoxic encephalopathy with the patient unresponsive at this time. 3. History of flash pulmonary edema in June 2015. At that time, she did not undergo cardiac catheterization due to her chronic kidney disease and was to undergo outpatient Cardiolite testing; however, she never returned for followup. 4. History of diastolic heart failure. 5. Hypertension. 6. Elevated liver function test probably secondary to hepatic congestion. 7. Morbid obesity. 8. Obstructive sleep apnea on sleep study in July 2015. It is unclear if she uses continuous positive airway pressure at home. 9. Chronic kidney disease. PLAN: Ms. Olivas's prognosis is extremely poor with the patient being unresponsive at this time with sedation turned off. This will continue to be followed. Echocardiogram will be performed to reassess left ventricular function. Job ID: [id number] MTDD
--- NOTE | 2019-04-02 17:00 | PDOC.HOSPP ---
- Subjective Encounter Date: 04/02/19 Encounter Time: 16:56 Subjective: 73 y/o female multiple co-morbidities including morbid obesity, CARINE, chronic venous stasis dermatitis, CKD, chronic CHF and others admitted after out of hospital PEA arrest. Patient is current unresponsive without sedatives and mechanically ventilated. - Objective Vital Signs & Weight: Vital Signs (12 hours) Temp Pulse Resp Pulse Ox 04/02/19 16:28 98 04/02/19 15:00 98.7 F 04/02/19 14:00 33 H 04/02/19 13:53 77 04/02/19 12:00 97.8 F 29 H 04/02/19 11:56 82 04/02/19 10:00 28 H 04/02/19 08:00 97.7 F 22 H 95 04/02/19 07:34 70 04/02/19 07:00 97.7 F 04/02/19 06:00 22 H 04/02/19 05:00 97.6 F Weight Admit Weight 246 lb 11.156 oz Weight 246 lb 11.156 oz Most Recent Monitor Data Heart Rate from ECG 91 NIBP 148/88 NIBP BP-Mean 108 Respiration from ECG 23 SpO2 100 I&O: 04/01/19 04/02/19 04/03/19 06:59 06:59 06:59 Intake Total 232 Output Total 1700 945 Balance -6401 -957 Result Diagrams: 04/02/19 04:15 04/02/19 04:15 Hospitalist ROS - Medication Medications: Active Medications Generic Name Dose Route Start Last Admin Trade Name Freq PRN Reason Stop Dose Admin Enoxaparin Sodium 30 mg 04/02/19 09:00 04/02/19 08:11 Lovenox SC 30 mg 0900 EH Administration Piperacillin Sod/Tazobactam 100 mls @ 200 mls/hr 04/02/19 02:00 04/02/19 13: 35 Sod 3.375 gm/ Sodium Chloride IVPB 100 mls 0200,0800,1400,2000 EH Administration Nitroglycerin/Dextrose 250 mls @ 0 mls/hr 04/02/19 02:30 04/02/19 13:35 Nitroglycerin 50 Mg/250 Ml Bot IVPB 250 mls INF EH Administration Protocol As Directed Pantoprazole Sodium 40 mg 04/02/19 09:00 04/02/19 08:35 Protonix IVP 40 mg DAILY EH Administration - Exam General - other findings: somnolent Eye: anicteric sclera ENT: normocephalic atraumatic ENT - other findings: Et tube in polace Heart: RRR Respiratory - other findings: ventilator transmitted breath sound heard in all lung zones. Gastrointestinal: soft, non-distended, normal bowel sounds Gastrointestinal - other findings: obese Extremeties - other findings: chronic venous stasis changes of both legs noted. No obvious edema Neurological - other findings: Somnolent. moves upper limbs to painful stimulation. did not localize pain Hosp A/P (1) Cardiac arrest Code(s): I46.9 - CARDIAC ARREST, CAUSE UNSPECIFIED Status: Acute (2) Acute respiratory failure with hypoxia and hypercapnia Code(s): J96.01 - ACUTE RESPIRATORY FAILURE WITH HYPOXIA; J96.02 - ACUTE RESPIRATORY FAILURE WITH HYPERCAPNIA Status: Acute (3) Acute on chronic combined systolic (congestive) and diastolic (congestive) heart failure Code(s): I50.43 - ACUTE ON CHRONIC COMBINED SYSTOLIC AND DIASTOLIC HRT FAIL Status: Acute (4) Accelerated hypertension Code(s): I10 - ESSENTIAL (PRIMARY) HYPERTENSION Status: Acute (5) High anion gap metabolic acidosis Code(s): E87.2 - ACIDOSIS Status: Acute (6) Abnormal LFTs Code(s): R94.5 - ABNORMAL RESULTS OF LIVER FUNCTION STUDIES Status: Acute (7) CARINE (obstructive sleep apnea) Code(s): G47.33 - OBSTRUCTIVE SLEEP APNEA (ADULT) (PEDIATRIC) Status: Acute (8) Hyperglycemia Code(s): R73.9 - HYPERGLYCEMIA, UNSPECIFIED Status: Acute (9) ARELY (acute kidney injury) Code(s): N17.9 - ACUTE KIDNEY FAILURE, UNSPECIFIED Status: Acute (10) CKD (chronic kidney disease), stage III Status: Chronic (11) Morbid obesity Code(s): E66.01 - MORBID (SEVERE) OBESITY DUE TO EXCESS CALORIES Status: Chronic (12) PAD (peripheral artery disease) Code(s): I73.9 - PERIPHERAL VASCULAR DISEASE, UNSPECIFIED Status: Chronic (13) Venous insufficiency of both lower extremities Code(s): I87.2 - VENOUS INSUFFICIENCY (CHRONIC) (PERIPHERAL) Status: Chronic (14) Pneumonia Code(s): J18.9 - PNEUMONIA, UNSPECIFIED ORGANISM Status: Suspected (15) Acute anoxic encephalopathy Code(s): G93.1 - ANOXIC BRAIN DAMAGE, NOT ELSEWHERE CLASSIFIED Status: Acute - Plan Continue nitroglycerin infusion for BP control Continue broad spectrum antibiotics. Get Procalcitonin in the am. Start sliding scale insulin Get hba1c in the am.
[2019-04-02] MEDS ORDERED: Dextrose 50% Abboject 50 ML SYRINGE SLOW IVP PRN (17:12)
[2019-04-02] MEDS ORDERED: Insulin Regular 300 UNITS/3 ML VIAL SC PRN (17:12)
[2019-04-02] MEDS ORDERED: Dextrose 5% in Water 1,000 ML IV PRN (17:12)
--- NOTE | 2019-04-02 18:09 | PDOC.PALCO ---
Palliative Care Consult - Consult Details Requesting Physician: Dr Deshpande Reason for Consult: family support Family Members Present: None - Pertinent HPI 73 year old female who had chronic conditions including obesity, heart failure, kidney disease. Patient had a sudden cardiac arrest, ems called and patient transported to [facility]. No identifying trigger other than health status and no relieving factors. Patient intubated and transferred to [facility]. Palliative Care consult for family support. - Pertinent PMH Hypertension, morbid obesity, diastolic heart failure, chronic kidney disease 3 , GERD. - Social History Smoking Status: Never smoker Smoking: no tobacco exposure Alcohol Use: none Drug Use History: none Living Situation: other - Medications MAR Reviewed: Yes - Allergies Allergies/Adverse Reactions: Allergies Allergy/AdvReac Type Severity Reaction Status Date / Time No Known Drug Allergies Allergy Verified 09/08/18 02:16 - Subjective Intubated/mechanical ventilation, non responsive without sedation ROS: as noted above - Objective Vital Signs: Vital Signs - Most Recent Temp Pulse Resp BP Pulse Ox 98.7 F 98 33 H 95 04/02/19 15:00 04/02/19 16:28 04/02/19 14:00 04/02/19 08:00 Palliative Performance Scale: 20 - Physical Exam Deviation from normal: non responsive without sedation HEENT: moist MMs, sclera anicteric Deviation from normal: mechanical ventilation Cardiovascular: RRR Gastrointestinal: soft, positive bowel sounds Musculoskeletal: pulses present Deviation from normal: No purposeful movment at time of assessment - Problem List (1) Palliative care encounter Code(s): Z51.5 - ENCOUNTER FOR PALLIATIVE CARE Current Visit: Yes Status: Acute (2) Acute anoxic encephalopathy Code(s): G93.1 - ANOXIC BRAIN DAMAGE, NOT ELSEWHERE CLASSIFIED Current Visit: Yes Status: Acute (3) Acute on chronic combined systolic (congestive) and diastolic (congestive) heart failure Code(s): I50.43 - ACUTE ON CHRONIC COMBINED SYSTOLIC AND DIASTOLIC HRT FAIL Current Visit: Yes Status: Acute (4) Cardiac arrest Code(s): I46.9 - CARDIAC ARREST, CAUSE UNSPECIFIED Current Visit: Yes Status : Acute (5) Acute worsening of stage 3 chronic kidney disease Code(s): N18.3 - CHRONIC KIDNEY DISEASE, STAGE 3 (MODERATE) Current Visit: No Status: Acute (6) Chronic diastolic (congestive) heart failure Code(s): I50.32 - CHRONIC DIASTOLIC (CONGESTIVE) HEART FAILURE Current Visit: No Status: Chronic (7) Morbid obesity Code(s): E66.01 - MORBID (SEVERE) OBESITY DUE TO EXCESS CALORIES Current Visit : No Status: Chronic - Plan/Recommendations Plan: Palliative Care initiated contact with family. Amber Concepcion Will attempt to establish a time for family meeting 04/03 with son to provide family support and identify understanding of prognosis and if family meeting with physicians is needed. [40] minutes spent on this encounter with >50% of the time in counseling and coordination of care. Thank you for this very appropriate consult.
[2019-04-02] MEDS ORDERED: Vancomycin HCl 1 GM in Premix Bag 1 BAG IVPB SCH (20:00)
[2019-04-02 20:17] LABS: Vancomycin, Random 13.2 ug/mL (See Comment)
[2019-04-02] MEDS: Vancomycin HCl 1 GM in Premix Bag 1 BAG IVPB SCH (21:57)
[2019-04-03] MEDS: Piperacillin/Tazobactam 3.375 GM in Sodium Chloride 0.9% 100 ML IVPB SCH ×4 (02:09→20:42)
[2019-04-03] MEDS: Nitroglycerin 50 MG/250 ML BOT 250 ML IVPB SCH ×3 (04:30→12:25)
[2019-04-03 05:36] LABS: #Lymphocytes 1.3 thou/uL (1.20-3.40); #Monocytes 0.9 thou/uL (0.11-0.59); #Neutrophils 12.2 thou/uL (1.40-6.50); %Basophils 0.1 % (0.0-1.0); %Eosinophils 0.3 % (0.0-10.0); %Lymphocytes 8.8 % (21.0-51.0); %Monocytes 6.1 % (0.0-10.0); %Neutrophils 84.7 % (42.0-75.0); Hemoglobin 8.9 g/dL (12.0-16.0); Mean Corpuscular HGB CONC 32.3 g/dL (32.0-36.0); Mean Corpuscular Hemoglobin 29.8 pg (27.0-31.0); Mean Corpuscular Volume 92.3 fL (78.0-98.0); Mean Platelet Volume 8.5 fL (7.4-10.4); Platelet Count 152 thou/uL (130-400); RBC Distribution Width 14.7 % (11.5-14.5); Red Blood Cell (RBC) Count 2.97 mill/uL (4.20-5.40); White Blood Cell (WBC) Count 14.4 thou/uL (4.8-10.8)
[2019-04-03 05:43] LABS: Hemoglobin A1c 5.1 % (4.0-6.0)
[2019-04-03 05:58] LABS: Anion Gap 14 mmol/L (10-20); BUN (Urea Nitrogen) 53 mg/dL (9.8-20.1); Calc. Creatinine Clearance 35 mL/min (70-130); Calcium 8.6 mg/dL (7.8-10.44); Carbon Dioxide 20 mmol/L (23-31); Chloride 110 mmol/L (98-107); Estimated GFR-MDRD 22; Glucose 139 mg/dL (83-110); Magnesium 2.1 mg/dL (1.6-2.6); Phosphorus 4.9 mg/dL (2.3-4.7); Potassium 4.5 mmol/L (3.5-5.1); Sodium 139 mmol/L (136-145)
[2019-04-03 07:11] LABS: Base Excess (BEa) -3.3 mEq/L (-2.0 to +3.0); CO2 Tension 34.8 mmHg (35.0-45.0); Calcium, Ionized 1.14 mmol/L (1.12-1.30); Carboxyhemoglobin (COHb) 0.3 gm% (0.0-3.0); Hemoglobin (Hb) 9.3 g/dL (12.0-16.0); Potassium - ABG Lab 4.53 mmol/L (3.70-5.30)
[2019-04-03 07:17] LABS: Puncture Site RRA
--- NOTE | 2019-04-03 08:46 | RAD ---
CHEST 1 VIEW: HISTORY: Ventilated patient. COMPARISON: Radiograph 04/01/2019. FINDINGS: The patient is intubated with endotracheal tube tip below the clavicles. Enteric tube tip below the diaphragm out of the field of view. Small effusions. There are worsening parenchymal opacities. IMPRESSION: Worsening parenchymal opacities suggesting progressive pneumonia. POS: CET
[2019-04-03] MEDS: Enoxaparin Sodium 30 MG/0.3 ML SYRINGE SC SCH (09:09)
[2019-04-03] MEDS: Pantoprazole 40 MG VIAL IVP SCH (09:09)
[2019-04-03] MEDS ORDERED: Carvedilol 3.125 MG TAB PER TUBE SCH (09:15)
[2019-04-03] MEDS ORDERED: EPINEPHrine 1 MG/10 ML Abboject SYRINGE ONE (09:30)
--- NOTE | 2019-04-03 13:53 | PQF ---
CLINICAL DOCUMENTATION IMPROVEMENT CLARIFICATION FORM: ICD-10 Updated PLEASE DO AN ADDENDUM TO THE PROGRESS NOTE WITH ANY DOCUMENTATION UPDATES OR ADDITIONS AND CARRY THROUGH TO DC SUMMARY. THANK YOU. DATE: 04/03/19 ATTN : DR. MOORE Please exercise your independent, professional judgment in responding to the clarification form. Clinical indicators are provided on the bottom of this form for your review Please check appropriate box(s): [ ] Aspiration Pneumonia [ ] Empirically treating Gram Negative Pneumonia [ ] Empirically treating Anaerobic Pneumonia [ ] Pneumonia secondary to (specify organism / underlying disease) [ ] Simple Pneumonia (community acquired - nosocomial) [ ] Pneumonia of unknown etiology [ X ] Other diagnosis :Possible aspiration pneumonia [ ] Unable to determine In addition, please specify: Present on Admission (POA): [ x ] Yes [ ] No [ ] Unable to determine For continuity of documentation, please document condition throughout progress notes and discharge summary. Thank You. CLINICAL INDICATORS - SIGNS / SYMPTOMS / LABS PROGRESS NOTE 04/02: "PNEUMONIA, SUSPECTED" CHEST XRAY 04/03: "WORSENING PARENCHYMAL OPACITIES SUGGESTING PROGRESSIVE PNEUMONIA." WBC (04/01): 6.0 WBC (04/02): 15.6 RISKS: MECHANICAL VENTILATION (PLACED IN ER 04/01) H/O CARINE (PER PROGRESS NOTE 04/02) ANOXIC ENCEPHALOPATHY (PROGRESS NOTE 04/02) TREATMENT: IV FLUIDS (ER) IV VANCOMYCIN (ER-PRESENT) IV ZOSYN (ER-PRESENT) PULMONARY CONSULT [employer] W[employer] Engineer [employer] Winform Viewer(This form is maintained as a part of the permanent medical record) 2014 [employer]. All Rights Reserved MALLORY [email or web address] Office: [phone] SHAHRZAD
[2019-04-03] MEDS: Carvedilol 6.25 MG TAB PER TUBE SCH (16:26)
--- NOTE | 2019-04-03 16:27 | PDOC.HOSPP ---
- Subjective Encounter Date: 04/03/19 Encounter Time: 12:26 Subjective: 73 y/o female multiple co-morbidities including morbid obesity, CARINE, chronic venous stasis dermatitis, CKD, chronic CHF and others admitted after out of hospital PEA arrest. Patient is remained unresponsive without sedatives. Mechanically ventilated. - Objective Vital Signs & Weight: Vital Signs (12 hours) Temp Pulse Resp Pulse Ox 04/03/19 15:44 83 04/03/19 14:00 12 04/03/19 13:48 87 04/03/19 12:00 16 04/03/19 10:06 88 04/03/19 10:00 15 04/03/19 08:00 28 H 100 04/03/19 07:06 91 04/03/19 07:00 97 F L 04/03/19 06:00 32 H Weight Admit Weight 246 lb 11.156 oz Weight 246 lb 11.156 oz Most Recent Monitor Data Heart Rate from ECG 84 NIBP 144/69 NIBP BP-Mean 94 Respiration from ECG 18 SpO2 100 I&O: 04/02/19 04/03/19 04/04/19 06:59 06:59 06:59 Intake Total 232 1680 Output Total 1700 7792 267 Balance -1468 -435 -525 Result Diagrams: 04/03/19 04:55 04/03/19 04:55 Additional Labs: Accuchecks 04/03/19 04/03/19 04/03/19 15:40 10:18 05:05 POC Glucose 122 H 133 H 140 H 04/02/19 20:21 POC Glucose 124 H Hospitalist ROS - Medication Medications: Active Medications Generic Name Dose Route Start Last Admin Trade Name Sonam PRN Reason Stop Dose Admin Enoxaparin Sodium 30 mg 04/02/19 09:00 04/03/19 09:09 Lovenox SC 30 mg 0900 EH Administration Piperacillin Sod/Tazobactam 100 mls @ 200 mls/hr 04/02/19 02:00 04/03/19 13: 52 Sod 3.375 gm/ Sodium Chloride IVPB 100 mls 0200,0800,1400,2000 EH Administration Nitroglycerin/Dextrose 250 mls @ 0 mls/hr 04/02/19 02:30 04/03/19 12:25 Nitroglycerin 50 Mg/250 Ml Bot IVPB 250 mls INF EH Administration Protocol As Directed Vancomycin HCl 1 gm/ Device 200 mls @ 200 mls/hr 04/02/19 21:00 04/02/19 21: 57 IVPB 200 mls Q24HR@2100 EH Administration Morphine Sulfate 2 mg 04/01/19 20:45 04/03/19 07:11 Morphine SLOW IVP 05/01/19 20:45 2 mg Q1H PRN Administration BREAKTHROUGH PAIN/Agitation Pantoprazole Sodium 40 mg 04/02/19 09:00 04/03/19 09:09 Protonix IVP 40 mg DAILY EH Administration Propofol 1,000 mg 04/01/19 20:45 04/03/19 00:11 Diprivan IV 05/01/19 20:45 1,000 mg INF PRN Administration TO ACHIEVE GOAL RASS Protocol - Exam General - other findings: unresponsive Eye: anicteric sclera ENT: normocephalic atraumatic ENT - other findings: ET tube in place Heart: RRR Respiratory - other findings: ventilator transmitted sound heard in all lung zones Gastrointestinal: soft, non-distended, normal bowel sounds Extremities: no edema Extremeties - other findings: chronic venous stasis changes noted Neurological - other findings: somnolent and unresponsive. Hosp A/P (1) Cardiac arrest Code(s): I46.9 - CARDIAC ARREST, CAUSE UNSPECIFIED Status: Acute (2) Acute respiratory failure with hypoxia and hypercapnia Code(s): J96.01 - ACUTE RESPIRATORY FAILURE WITH HYPOXIA; J96.02 - ACUTE RESPIRATORY FAILURE WITH HYPERCAPNIA Status: Acute (3) Acute on chronic combined systolic (congestive) and diastolic (congestive) heart failure Code(s): I50.43 - ACUTE ON CHRONIC COMBINED SYSTOLIC AND DIASTOLIC HRT FAIL Status: Acute (4) Accelerated hypertension Code(s): I10 - ESSENTIAL (PRIMARY) HYPERTENSION Status: Acute (5) High anion gap metabolic acidosis Code(s): E87.2 - ACIDOSIS Status: Acute (6) Abnormal LFTs Code(s): R94.5 - ABNORMAL RESULTS OF LIVER FUNCTION STUDIES Status: Acute (7) CARINE (obstructive sleep apnea) Code(s): G47.33 - OBSTRUCTIVE SLEEP APNEA (ADULT) (PEDIATRIC) Status: Acute (8) Hyperglycemia Code(s): R73.9 - HYPERGLYCEMIA, UNSPECIFIED Status: Acute (9) ARELY (acute kidney injury) Code(s): N17.9 - ACUTE KIDNEY FAILURE, UNSPECIFIED Status: Acute (10) CKD (chronic kidney disease), stage III Status: Chronic (11) Morbid obesity Code(s): E66.01 - MORBID (SEVERE) OBESITY DUE TO EXCESS CALORIES Status: Chronic (12) PAD (peripheral artery disease) Code(s): I73.9 - PERIPHERAL VASCULAR DISEASE, UNSPECIFIED Status: Chronic (13) Venous insufficiency of both lower extremities Code(s): I87.2 - VENOUS INSUFFICIENCY (CHRONIC) (PERIPHERAL) Status: Chronic (14) Acute anoxic encephalopathy Code(s): G93.1 - ANOXIC BRAIN DAMAGE, NOT ELSEWHERE CLASSIFIED Status: Acute (15) Aspiration pneumonia Code(s): J69.0 - PNEUMONITIS DUE TO INHALATION OF FOOD AND VOMIT Status: Suspected (16) Cardiomyopathy Code(s): I42.9 - CARDIOMYOPATHY, UNSPECIFIED Status: Acute - Plan Add amlodipine to coreg. wean off nitroglycerin infusion Continue broad spectrum antibiotics. Continue sliding scale insulin Tube feeding contemplated
[2019-04-03] MEDS ORDERED: Amlodipine 5 MG TAB PO SCH (16:30)
--- NOTE | 2019-04-03 20:50 | PRG ---
DATE OF SERVICE: 04/03/2019 SUBJECTIVE: Cinthya Olivas has no meaningful response to noxious stimuli. She has a quivering tongue, but I am told her EEG did not show any evidence of seizure activity. OBJECTIVE: VITAL SIGNS: Pulse 75, respiratory rate is per mechanical ventilation, blood pressure 145/73. LUNGS: Clear. HEART: Regular rhythm. ABDOMEN: Soft and nontender. EXTREMITIES: Without clubbing, cyanosis, or edema. LABORATORY DATA: White count 14.4, hemoglobin 8.9, platelets 152. Sodium 139, potassium 4.5, chloride 110, bicarb 20, BUN 53, creatinine 2.55. IMPRESSION: Status post [id number] arrest with a hypoperfusion brain injury. She had a prolonged period that was over 10 minutes without CPR, so I suspect she will not recover from this. We will continue with supportive care. CRITICAL CARE TIME: 30 minutes. Job ID: [id number]
[2019-04-03] MEDS: Vancomycin HCl 1 GM in Premix Bag 1 BAG IVPB SCH (22:39)
[2019-04-04] MEDS: Piperacillin/Tazobactam 3.375 GM in Sodium Chloride 0.9% 100 ML IVPB SCH ×4 (02:53→20:31)
[2019-04-04 04:42] LABS: #Eosinphils 0.2 thou/uL (0.0-0.7); #Lymphocytes 0.9 thou/uL (1.20-3.40); #Monocytes 0.4 thou/uL (0.11-0.59); #Neutrophils 6.5 thou/uL (1.40-6.50); %Basophils 0.4 % (0.0-1.0); %Eosinophils 2.4 % (0.0-10.0); %Lymphocytes 11.5 % (21.0-51.0); %Monocytes 5.4 % (0.0-10.0); %Neutrophils 80.3 % (42.0-75.0); Hemoglobin 8.6 g/dL (12.0-16.0); Mean Corpuscular Volume 93.6 fL (78.0-98.0); Mean Platelet Volume 8.7 fL (7.4-10.4); Platelet Count 121 thou/uL (130-400); RBC Distribution Width 14.8 % (11.5-14.5); Red Blood Cell (RBC) Count 2.86 mill/uL (4.20-5.40)
[2019-04-04 04:59] LABS: AST (SGOT) 125 U/L (5-34); Bilirubin, Total 0.4 mg/dL (0.2-1.2)
[2019-04-04 05:01] LABS: Anion Gap 15 mmol/L (10-20); BUN (Urea Nitrogen) 47 mg/dL (9.8-20.1); Calc. Creatinine Clearance 39 mL/min (70-130); Calcium 8.5 mg/dL (7.8-10.44); Carbon Dioxide 20 mmol/L (23-31); Chloride 110 mmol/L (98-107); Estimated GFR-MDRD 25; Glucose 98 mg/dL (83-110); Magnesium 2.2 mg/dL (1.6-2.6); Potassium 4.7 mmol/L (3.5-5.1); Sodium 140 mmol/L (136-145)
[2019-04-04 07:01] LABS: Actual Bicarbonate (HCO3a) 21.1 mEq/L (22-28); Base Excess (BEa) -4.8 mEq/L (-2.0 to +3.0); Calcium, Ionized 1.15 mmol/L (1.12-1.30); Carboxyhemoglobin (COHb) 0.8 gm% (0.0-3.0); Hemoglobin (Hb) 9.5 g/dL (12.0-16.0); O2 Tension (PaO2) 134.8 mmHg (> 70.0); Potassium - ABG Lab 4.68 mmol/L (3.70-5.30); pH, Arterial 7.32 (7.35-7.45)
[2019-04-04 07:05] LABS: Puncture Site RBA
[2019-04-04] MEDS: Enoxaparin Sodium 30 MG/0.3 ML SYRINGE SC SCH (08:46)
[2019-04-04] MEDS: Carvedilol 6.25 MG TAB PER TUBE SCH ×2 (08:46→19:17)
[2019-04-04] MEDS: Sodium Chloride 0.9% (PF) 10 ML VIAL FS PRN (08:47)
[2019-04-04] MEDS: Pantoprazole 40 MG VIAL IVP SCH (08:47)
[2019-04-04] MEDS ORDERED: Amlodipine 5 MG TAB PO SCH ×2 (09:00→14:45)
--- NOTE | 2019-04-04 09:35 | RAD ---
CHEST 1 VIEW: INDICATION: Daily CCU examination. COMPARISON: Prior exam dated 04/03/2019. FINDINGS/IMPRESSION: The patient remains intubated with associated gastric catheter placement. Tube positions are unchang ed. Cardiomegaly with pulmonary vascular congestion, central edema pattern, and bilateral pleural ef fusions are similar-appearing. No pneumothorax is evident. POS: OFF
[2019-04-04] MEDS: Nitroglycerin 50 MG/250 ML BOT 250 ML IVPB SCH ×2 (09:47→22:51)
--- NOTE | 2019-04-04 12:41 | PRG ---
DATE OF SERVICE: 04/04/2019 SUBJECTIVE: Cinthya Olivas is not improved neurologically. She opens her eyes to sternal rub. OBJECTIVE: VITAL SIGNS: Heart rate is 80, respiratory rate is 18, blood pressure 169/82. LUNGS: Unchanged. HEART: Unchanged. ABDOMEN: Unchanged. LABORATORY DATA: White count 8, hemoglobin 8.6, and platelets 121. Electrolytes are unremarkable. Creatinine is 2.29, it was 2.59 on admission. Chest x-ray has been reviewed, no significant change, pulmonary edema is seen. IMPRESSION: Status post out of our hospital cardiac arrest with resultant severe anoxic injury. There is a niece at the bedside and I have asked her to relay to the family that her aunt has a horrible prognosis. Consideration for withdrawal of support and comfort care early next week if there is no improvement. It would be appropriate in my opinion. Job ID: [id number]
--- NOTE | 2019-04-04 14:42 | PDOC.HOSPP ---
- Subjective Encounter Date: 04/04/19 Encounter Time: 14:40 Subjective: 73 y/o female multiple co-morbidities including morbid obesity, CARINE, chronic venous stasis dermatitis, CKD, chronic CHF and others admitted after out of hospital PEA arrest. Patient is remained unresponsive without sedatives. No change neurologically. Nback on nitro infusion for BP control. Mechanically ventilated. - Objective Vital Signs & Weight: Vital Signs (12 hours) Temp Pulse Resp Pulse Ox 04/04/19 14:11 88 04/04/19 12:00 97.7 F 04/04/19 10:52 81 04/04/19 10:00 10 L 04/04/19 08:00 10 L 100 04/04/19 07:00 97.6 F 04/04/19 06:52 82 04/04/19 06:00 10 L 04/04/19 04:00 97.7 F 10 L Weight Admit Weight 246 lb 11.156 oz Weight 246 lb 11.156 oz Most Recent Monitor Data Heart Rate from ECG 80 NIBP 172/84 NIBP BP-Mean 113 Respiration from ECG 12 SpO2 100 I&O: 04/03/19 04/04/19 04/05/19 06:59 06:59 06:59 Intake Total 1680 1229 Output Total 2115 2160 1000 Balance -435 -931 -1000 Result Diagrams: 04/04/19 04:00 04/04/19 04:00 Additional Labs: Accuchecks 04/04/19 04/03/19 04/03/19 10:57 22:27 15:40 POC Glucose 98 116 H 122 H Hospitalist ROS - Medication Medications: Active Medications Generic Name Dose Route Start Last Admin Trade Name Sonam PRN Reason Stop Dose Admin Amlodipine Besylate 5 mg 04/04/19 09:00 04/04/19 08:46 Norvasc PO 5 mg DAILY EH Administration Carvedilol 6.25 mg 04/03/19 17:00 04/04/19 08:46 Coreg PER TUBE 6.25 mg BID-WM EH Administration Enoxaparin Sodium 30 mg 04/02/19 09:00 04/04/19 08:46 Lovenox SC 30 mg 0900 EH Administration Piperacillin Sod/Tazobactam 100 mls @ 200 mls/hr 04/02/19 02:00 04/04/19 08: 47 Sod 3.375 gm/ Sodium Chloride IVPB 100 mls 0200,0800,1400,2000 EH Administration Nitroglycerin/Dextrose 250 mls @ 0 mls/hr 04/02/19 02:30 04/04/19 09:47 Nitroglycerin 50 Mg/250 Ml Bot IVPB 250 mls INF EH Administration Protocol As Directed Vancomycin HCl 1 gm/ Device 200 mls @ 200 mls/hr 04/02/19 21:00 04/03/19 22: 39 IVPB 200 mls Q24HR@2100 EH Administration Morphine Sulfate 2 mg 04/01/19 20:45 04/03/19 07:11 Morphine SLOW IVP 05/01/19 20:45 2 mg Q1H PRN Administration BREAKTHROUGH PAIN/Agitation Pantoprazole Sodium 40 mg 04/02/19 09:00 04/04/19 08:47 Protonix IVP 40 mg DAILY EH Administration Propofol 1,000 mg 04/01/19 20:45 04/03/19 00:11 Diprivan IV 05/01/19 20:45 1,000 mg INF PRN Administration TO ACHIEVE GOAL RASS Protocol Sodium Chloride 10 ml 04/02/19 08:21 04/04/19 08:47 Normal Saline Pf FS 10 ml PRN PRN Administration RECONSTITUTION - Exam General - other findings: somnolent and unresponsive ENT: normocephalic atraumatic ENT - other findings: ET tube in place Heart: RRR Respiratory - other findings: ventilaitor transmitted breath sound noted Gastrointestinal: non-distended, diminished bowl sounds Extremities: no edema Neurological - other findings: somnolent Hosp A/P (1) Cardiac arrest Code(s): I46.9 - CARDIAC ARREST, CAUSE UNSPECIFIED Status: Acute (2) Acute respiratory failure with hypoxia and hypercapnia Code(s): J96.01 - ACUTE RESPIRATORY FAILURE WITH HYPOXIA; J96.02 - ACUTE RESPIRATORY FAILURE WITH HYPERCAPNIA Status: Acute (3) Acute on chronic combined systolic (congestive) and diastolic (congestive) heart failure Code(s): I50.43 - ACUTE ON CHRONIC COMBINED SYSTOLIC AND DIASTOLIC HRT FAIL Status: Acute (4) Accelerated hypertension Code(s): I10 - ESSENTIAL (PRIMARY) HYPERTENSION Status: Acute (5) High anion gap metabolic acidosis Code(s): E87.2 - ACIDOSIS Status: Acute (6) Abnormal LFTs Code(s): R94.5 - ABNORMAL RESULTS OF LIVER FUNCTION STUDIES Status: Acute (7) CARINE (obstructive sleep apnea) Code(s): G47.33 - OBSTRUCTIVE SLEEP APNEA (ADULT) (PEDIATRIC) Status: Acute (8) Hyperglycemia Code(s): R73.9 - HYPERGLYCEMIA, UNSPECIFIED Status: Acute (9) ARELY (acute kidney injury) Code(s): N17.9 - ACUTE KIDNEY FAILURE, UNSPECIFIED Status: Acute (10) CKD (chronic kidney disease), stage III Status: Chronic (11) Morbid obesity Code(s): E66.01 - MORBID (SEVERE) OBESITY DUE TO EXCESS CALORIES Status: Chronic (12) PAD (peripheral artery disease) Code(s): I73.9 - PERIPHERAL VASCULAR DISEASE, UNSPECIFIED Status: Chronic (13) Venous insufficiency of both lower extremities Code(s): I87.2 - VENOUS INSUFFICIENCY (CHRONIC) (PERIPHERAL) Status: Chronic (14) Acute anoxic encephalopathy Code(s): G93.1 - ANOXIC BRAIN DAMAGE, NOT ELSEWHERE CLASSIFIED Status: Acute (15) Aspiration pneumonia Code(s): J69.0 - PNEUMONITIS DUE TO INHALATION OF FOOD AND VOMIT Status: Suspected (16) Cardiomyopathy Code(s): I42.9 - CARDIOMYOPATHY, UNSPECIFIED Status: Acute - Plan Increase amlodipine to 10 PER tube. Continue coreg. wean off nitroglycerin infusion as tolerated. Continue broad spectrum antibiotics. Continue sliding scale insulin No Tube feeding yet as drainage from NG is still significant. Palliative care following.
[2019-04-04] MEDS: Vancomycin HCl 1 GM in Premix Bag 1 BAG IVPB SCH (20:31)
[2019-04-04 21:37] LABS: Vancomycin, Trough 22.5 ug/mL
[2019-04-05] MEDS: niCARdipine 25 MG in Sodium Chloride 0.9% 250 ML 240 ML IVPB SCH ×9 (00:10→23:10)
[2019-04-05] MEDS: Piperacillin/Tazobactam 3.375 GM in Sodium Chloride 0.9% 100 ML IVPB SCH ×4 (01:56→19:34)
[2019-04-05 04:16] LABS: #Basophils 0.1 thou/uL (0.0-0.2); #Eosinphils 0.3 thou/uL (0.0-0.7); #Monocytes 0.6 thou/uL (0.11-0.59); #Neutrophils 7.3 thou/uL (1.40-6.50); %Basophils 0.6 % (0.0-1.0); %Eosinophils 2.8 % (0.0-10.0); %Lymphocytes 10.3 % (21.0-51.0); %Monocytes 6.8 % (0.0-10.0); %Neutrophils 79.5 % (42.0-75.0); Mean Corpuscular HGB CONC 32.1 g/dL (32.0-36.0); Mean Corpuscular Hemoglobin 29.5 pg (27.0-31.0); Mean Corpuscular Volume 91.9 fL (78.0-98.0); Mean Platelet Volume 8.7 fL (7.4-10.4); Platelet Count 142 thou/uL (130-400); RBC Distribution Width 14.3 % (11.5-14.5); Red Blood Cell (RBC) Count 3.04 mill/uL (4.20-5.40); White Blood Cell (WBC) Count 9.2 thou/uL (4.8-10.8)
[2019-04-05 04:42] LABS: Anion Gap 13 mmol/L (10-20); BUN (Urea Nitrogen) 38 mg/dL (9.8-20.1); Calc. Creatinine Clearance 42 mL/min (70-130); Calcium 8.6 mg/dL (7.8-10.44); Carbon Dioxide 22 mmol/L (23-31); Chloride 109 mmol/L (98-107); Estimated GFR-MDRD 28; Glucose 129 mg/dL (83-110); Magnesium 2.1 mg/dL (1.6-2.6); Potassium 4.7 mmol/L (3.5-5.1); Sodium 139 mmol/L (136-145)
[2019-04-05 04:43] LABS: AST (SGOT) 118 U/L (5-34); Bilirubin, Total 0.7 mg/dL (0.2-1.2)
--- NOTE | 2019-04-05 07:36 | RAD ---
EXAM: Portable chest PROVIDED CLINICAL HISTORY: Respiratory insufficiency COMPARISON: 04/04/2019 FINDINGS: Interval increase in left basilar pleural-parenchymal opacity. Additional significant interval change with respect to the prior examination is not apparent. IMPRESSION: As above.
--- NOTE | 2019-04-05 08:15 | PRG ---
DATE OF SERVICE: 04/05/2019 SUBJECTIVE: Ms. Olivas remains unresponsive. She is on the ventilator. REVIEW OF SYSTEMS: Not obtainable. OBJECTIVE: VITAL SIGNS: Blood pressure 160/70 and pulse 80, it is regular. LUNGS: Clear. CARDIAC: Normal S1. Normal S2. ASSESSMENT: 1. Status post cardiac arrest. 2. Ejection fraction 35% to 40%. 3. Severe hypoxic encephalopathy. 4. Hypertension. PLAN: 1. Poor prognosis. 2. Continue supportive care. Prognosis looks extremely poor. Family decide again code status, no changes at the present time. Job ID: [id number]
--- NOTE | 2019-04-05 09:03 | PRG ---
DATE OF SERVICE: 04/05/2019 TIME SPENT: 35 minutes of critical care time. SUBJECTIVE: The patient remains intubated on mechanical ventilation. Neurologically, she cough. She has some spontaneous respirations, but little less. OBJECTIVE: VITAL SIGNS: Temperature is 97.5, pulse 80, blood pressure 160/76, and O2 saturation 100%. A 24-hour intake 1737, output 4810. HEENT: Pupils are sluggish. Sclerae anicteric. Oropharynx clear. NECK: No JVD. LUNGS: Clear. CARDIAC: S1, S2, regular. ABDOMEN: Soft. EXTREMITIES: No edema. LABORATORY DATA: White cell count 9.2, hematocrit 27.9, and platelet count 142. Sodium 139, potassium 4.7, chloride 109, CO2 of 22, BUN 38, creatinine 2.1, and glucose 129. ASSESSMENT: 1. Severe anoxic brain injury, status post prolonged cardiopulmonary arrest. 2. Respiratory failure, requiring mechanical ventilation. PLAN: The patient has been in the hospital for four days and has shown no substantial improvement. I am going to go ahead and stop her vancomycin as I do not see what we are treating with that. We can stop, pull the central line out. We are waiting for family decision, but there is some question whether or not the family has capacity to make that decision. Job ID: [id number]
[2019-04-05] MEDS: Enoxaparin Sodium 30 MG/0.3 ML SYRINGE SC SCH (10:15)
[2019-04-05] MEDS: Amlodipine 10 MG TAB PO SCH (10:15)
[2019-04-05] MEDS: Pantoprazole 40 MG VIAL IVP SCH (10:15)
[2019-04-05] MEDS: Carvedilol 6.25 MG TAB PER TUBE SCH ×2 (10:16→17:07)
--- NOTE | 2019-04-05 18:30 | PDOC.HOSPP ---
- Subjective Encounter Date: 04/05/19 Encounter Time: 11:10 Subjective: Ms. Olivas was seen today in follow-up f cardiac arrest. She is intubated, and unresponsive. - Objective Vital Signs & Weight: Vital Signs (12 hours) Temp Pulse Resp BP Pulse Ox 04/05/19 16:29 87 154/76 H 04/05/19 16:00 98.6 F 15 04/05/19 14:00 16 04/05/19 13:21 87 149/70 H 04/05/19 12:00 97.8 F 17 04/05/19 10:52 84 152/64 H 04/05/19 10:16 162/69 H 04/05/19 10:00 16 04/05/19 09:00 97.6 F 04/05/19 08:00 26 H 100 04/05/19 07:08 82 162/69 H Weight Admit Weight 246 lb 11.156 oz Weight 246 lb 11.156 oz Most Recent Monitor Data Heart Rate from ECG 87 NIBP 155/88 NIBP BP-Mean 110 Respiration from ECG 17 SpO2 100 I&O: 04/04/19 04/05/19 04/06/19 06:59 06:59 06:59 Intake Total 1229 1737.8 1408 Output Total 2160 4810 1255 [facility] -931 -3072.2 153 Result Diagrams: 04/05/19 04:05 04/05/19 04:05 Additional Labs: Accuchecks 04/05/19 04/05/19 04/04/19 16:17 12:24 21:15 POC Glucose 114 H 106 143 H Hospitalist ROS - Medication Medications: Active Medications Generic Name Dose Route Start Last Admin Trade Name Freq PRN Reason Stop Dose Admin Amlodipine Besylate 10 mg 04/05/19 09:00 04/05/19 10:15 Norvasc PO 10 mg DAILY EH Administration Carvedilol 6.25 mg 04/03/19 17:00 04/05/19 17:07 Coreg PER TUBE 6.25 mg BID-WM EH Administration Enoxaparin Sodium 30 mg 04/02/19 09:00 04/05/19 10:15 Lovenox SC 30 mg 0900 EH Administration Piperacillin Sod/Tazobactam 100 mls @ 200 mls/hr 04/02/19 02:00 04/05/19 15: 24 Sod 3.375 gm/ Sodium Chloride IVPB 100 mls 0200,0800,1400,2000 EH Administration Nitroglycerin/Dextrose 250 mls @ 0 mls/hr 04/02/19 02:30 04/04/19 22:51 Nitroglycerin 50 Mg/250 Ml Bot IVPB 250 mls INF EH Administration Protocol As Directed Nicardipine HCl 25 mg/ Sodium 250 mls @ 0 mls/hr 04/04/19 23:00 04/05/19 17: 06 Chloride IVPB 250 mls INF EH Administration Protocol Titrate Morphine Sulfate 2 mg 04/01/19 20:45 04/03/19 07:11 Morphine SLOW IVP 05/01/19 20:45 2 mg Q1H PRN Administration BREAKTHROUGH PAIN/Agitation Pantoprazole Sodium 40 mg 04/02/19 09:00 04/05/19 10:15 Protonix IVP 40 mg DAILY EH Administration Propofol 1,000 mg 04/01/19 20:45 04/03/19 00:11 Diprivan IV 05/01/19 20:45 1,000 mg INF PRN Administration TO ACHIEVE GOAL RASS Protocol Sodium Chloride 10 ml 04/02/19 08:21 04/04/19 08:47 Normal Saline Pf FS 10 ml PRN PRN Administration RECONSTITUTION - Exam Eye: PERRL (pinpoint and minimally responsive), anicteric sclera Heart: RRR, no murmur, no gallops, no rubs, normal peripheral pulses Respiratory: CTAB, no wheezes, no rales, no ronchi, normal chest expansion Gastrointestinal: soft, non-tender, non-distended, normal bowel sounds, no palpable masses, no hepatomegaly, no splenomegaly, no bruit Extremities: no cyanosis, no clubbing, no edema Hosp A/P (1) Acute anoxic encephalopathy Code(s): G93.1 - ANOXIC BRAIN DAMAGE, NOT ELSEWHERE CLASSIFIED Status: Acute (2) Cardiac arrest Code(s): I46.9 - CARDIAC ARREST, CAUSE UNSPECIFIED Status: Acute (3) Chronic systolic heart failure Code(s): I50.22 - CHRONIC SYSTOLIC (CONGESTIVE) HEART FAILURE Status: Chronic (4) Diabetes mellitus type 2 in obese Code(s): E11.69 - TYPE 2 DIABETES MELLITUS WITH OTHER SPECIFIED COMPLICATION; E66.9 - OBESITY, UNSPECIFIED Status: Chronic - Plan * Chart reviewed and patient examined. Ms. Olivas suffered a cardiac arrest outside the hospital. She was down for some time, and unfortunately suffered severe anoxic brain injury. She has a history of Systolic heart failure, in which she was lost to follow-up regarding it's management. Awaiting family decision regarding possible withdrawal of vent support. * DM- stable * CHF- cpmpensated * In the meantime continue supportive care
[2019-04-06] MEDS: niCARdipine 50 MG in Sodium Chloride 0.9% 250 ML 230 ML IVPB SCH ×2 (01:43→06:38)
[2019-04-06] MEDS: Piperacillin/Tazobactam 3.375 GM in Sodium Chloride 0.9% 100 ML IVPB SCH ×4 (02:06→20:56)
[2019-04-06 07:43] LABS: Hemoglobin 9.9 g/dL (12.0-16.0); Mean Corpuscular HGB CONC 31.6 g/dL (32.0-36.0); Mean Corpuscular Volume 91.6 fL (78.0-98.0); Mean Platelet Volume 7.9 fL (7.4-10.4); Platelet Count 147 thou/uL (130-400); RBC Distribution Width 14.4 % (11.5-14.5); Red Blood Cell (RBC) Count 3.42 mill/uL (4.20-5.40)
[2019-04-06 07:48] LABS: Anion Gap 13 mmol/L (10-20); BUN (Urea Nitrogen) 32 mg/dL (9.8-20.1); Calc. Creatinine Clearance 43 mL/min (70-130); Calcium 8.2 mg/dL (7.8-10.44); Carbon Dioxide 20 mmol/L (23-31); Chloride 112 mmol/L (98-107); Estimated GFR-MDRD 30; Glucose 116 mg/dL (83-110); Potassium 4.3 mmol/L (3.5-5.1); Sodium 141 mmol/L (136-145)
[2019-04-06] MEDS: Amlodipine 10 MG TAB PO SCH (08:04)
[2019-04-06] MEDS: Pantoprazole 40 MG VIAL IVP SCH (08:05)
[2019-04-06] MEDS: Enoxaparin Sodium 30 MG/0.3 ML SYRINGE SC SCH (08:05)
[2019-04-06] MEDS: Carvedilol 6.25 MG TAB PER TUBE SCH ×2 (08:05→16:27)
[2019-04-06 08:42] LABS: Eosinophils 3 % (0-10); Lymphocytes 22 % (21-51); MDiff Complete? YES; Monocytes 11 % (0-10); Neutrophil 64 % (42-75); Platelet Morphology Comment Appears Adequate; White Blood Cell (WBC) Count 7.4 thou/uL (4.8-10.8)
[2019-04-06] MEDS ORDERED: Vancomycin HCl 750 MG in Sodium Chloride 0.9% 250 ML 250 ML IVPB SCH (09:00)
--- NOTE | 2019-04-06 09:13 | PRG ---
DATE OF SERVICE: 04/06/2019 SUBJECTIVE: Ms. Olivas remains unresponsive. REVIEW OF SYSTEMS: Not obtainable. OBJECTIVE: VITAL SIGNS: Blood pressure 158/72, pulse 73 and regular. LUNGS: Clear. CARDIAC: No new murmur, rub, or gallop. ASSESSMENT: Status post cardiac arrest with hypoxic brain injury. PLAN: Supportive care. The nurse tells me there is a family conference plan for tomorrow to discuss further options. Dr. Prado to resume care tomorrow. Job ID: [id number]
--- NOTE | 2019-04-06 10:31 | PRG ---
DATE OF SERVICE: 04/06/2019 TIME SPENT: 35 minutes of critical care time. SUBJECTIVE: The patient remains intubated on mechanical ventilation. OBJECTIVE: VITAL SIGNS: On exam, temperature 94.6, pulse 77, blood pressure 158/80, O2 saturation 98%. 24-hour intake 2216, output 2335. NEUROLOGIC: I can get her to wake up or follow commands. She does have some spontaneous respirations. She does withdraw to pain. HEENT: Otherwise unremarkable. NECK: No adenopathy or JVD. CHEST: Clear to auscultation anteriorly. CARDIAC: S1 and S2, regular. ABDOMEN: Soft. EXTREMITIES: No edema. LABORATORY DATA: White blood cell count 7.4, hematocrit 31.3, and platelet count 147. Sodium 141, potassium 4.3, chloride 112, CO2 of 20, BUN 32, creatinine 2.0, glucose 116. ASSESSMENT: 1. Anoxic brain injury, status post cardiopulmonary arrest, no evidence of recovery. 2. Respiratory failure, requiring mechanical ventilation. 3. Renal dysfunction. PLAN: Again we have seen no neurologic improvement. Family needs to decide how they want to proceed. Choices include terminal extubation, comfort care versus tracheostomy, PEG tube placement and eventual mcc placement. Job ID: [id number]
--- NOTE | 2019-04-06 10:49 | PDOC.HOSPP ---
- Subjective Encounter Date: 04/06/19 Encounter Time: 10:47 Subjective: Ms. Olivas was seen today in follow-up of post cardiac arrest. No significant change overnight. - Objective Vital Signs & Weight: Vital Signs (12 hours) Temp Pulse Resp BP Pulse Ox 04/06/19 10:39 77 170/90 H 04/06/19 10:26 98.3 F 04/06/19 10:00 10 L 04/06/19 08:00 94.6 F L 14 100 04/06/19 07:15 72 168/87 H 04/06/19 06:00 10 L 04/06/19 04:00 11 L 04/06/19 03:00 97.6 F 04/06/19 02:00 12 04/06/19 00:00 26 H 04/05/19 23:00 97.7 F Weight Admit Weight 246 lb 11.156 oz Weight 238 lb 1.588 oz Most Recent Monitor Data Heart Rate from ECG 78 NIBP 170/90 NIBP BP-Mean 116 Respiration from ECG 10 SpO2 100 I&O: 04/05/19 04/06/19 04/07/19 06:59 06:59 06:59 Intake Total 1737.8 2616 52 Output Total 4810 2335 270 Balance -3072.2 281 -218 Result Diagrams: 04/06/19 07:07 04/06/19 07:07 Additional Labs: Accuchecks 04/06/19 04/06/19 04/05/19 10:18 06:00 20:45 POC Glucose 102 119 H 107 04/05/19 04/05/19 16:17 12:24 POC Glucose 114 H 106 Hospitalist ROS - Medication Medications: Active Medications Generic Name Dose Route Start Last Admin Trade Name Freq PRN Reason Stop Dose Admin Amlodipine Besylate 10 mg 04/05/19 09:00 04/06/19 08:04 Norvasc PO 10 mg DAILY EH Administration Carvedilol 6.25 mg 04/03/19 17:00 04/06/19 08:05 Coreg PER TUBE 6.25 mg BID-WM EH Administration Enoxaparin Sodium 30 mg 04/02/19 09:00 04/06/19 08:05 Lovenox SC 30 mg 0900 EH Administration Piperacillin Sod/Tazobactam 100 mls @ 200 mls/hr 04/02/19 02:00 04/06/19 08: 05 Sod 3.375 gm/ Sodium Chloride IVPB 100 mls 0200,0800,1400,2000 EH Administration Nitroglycerin/Dextrose 250 mls @ 0 mls/hr 04/02/19 02:30 04/04/19 22:51 Nitroglycerin 50 Mg/250 Ml Bot IVPB 250 mls INF EH Administration Protocol As Directed Nicardipine HCl 50 mg/ Sodium 250 mls @ 0 mls/hr 04/05/19 23:15 04/06/19 06: 38 Chloride IVPB 250 mls INF EH Administration Protocol Titrate Morphine Sulfate 2 mg 04/01/19 20:45 04/03/19 07:11 Morphine SLOW IVP 05/01/19 20:45 2 mg Q1H PRN Administration BREAKTHROUGH PAIN/Agitation Pantoprazole Sodium 40 mg 04/02/19 09:00 04/06/19 08:05 Protonix IVP 40 mg DAILY EH Administration Propofol 1,000 mg 04/01/19 20:45 04/03/19 00:11 Diprivan IV 05/01/19 20:45 1,000 mg INF PRN Administration TO ACHIEVE GOAL RASS Protocol Sodium Chloride 10 ml 04/02/19 08:21 04/04/19 08:47 Normal Saline Pf FS 10 ml PRN PRN Administration RECONSTITUTION - Exam Eye: PERRL, anicteric sclera Heart: RRR, no murmur, no gallops, no rubs, normal peripheral pulses Respiratory: CTAB, no wheezes, normal chest expansion, rhonchi (occasional rhonchi) Gastrointestinal: soft, non-tender, non-distended, normal bowel sounds, no palpable masses, no hepatomegaly, no splenomegaly Extremities: no cyanosis, no edema Hosp A/P (1) Acute anoxic encephalopathy Code(s): G93.1 - ANOXIC BRAIN DAMAGE, NOT ELSEWHERE CLASSIFIED Status: Acute (2) Cardiac arrest Code(s): I46.9 - CARDIAC ARREST, CAUSE UNSPECIFIED Status: Acute (3) Chronic systolic heart failure Code(s): I50.22 - CHRONIC SYSTOLIC (CONGESTIVE) HEART FAILURE Status: Chronic (4) Diabetes mellitus type 2 in obese Code(s): E11.69 - TYPE 2 DIABETES MELLITUS WITH OTHER SPECIFIED COMPLICATION; E66.9 - OBESITY, UNSPECIFIED Status: Chronic - Plan * Patient is s/p cardiac arrest. She has anoxic brain injury. Continue Vent support * DM- stable * CHF- cpmpensated * Awaiting family decision regarding ongoing care.
[2019-04-07] MEDS: Piperacillin/Tazobactam 3.375 GM in Sodium Chloride 0.9% 100 ML IVPB SCH ×3 (01:57→14:20)
[2019-04-07 06:21] LABS: #Eosinphils 0.2 thou/uL (0.0-0.7); #Monocytes 0.5 thou/uL (0.11-0.59); #Neutrophils 5.3 thou/uL (1.40-6.50); %Basophils 0.4 % (0.0-1.0); %Eosinophils 2.3 % (0.0-10.0); %Lymphocytes 14.3 % (21.0-51.0); %Monocytes 6.6 % (0.0-10.0); %Neutrophils 76.3 % (42.0-75.0); Hemoglobin 10.3 g/dL (12.0-16.0); Mean Corpuscular HGB CONC 31.8 g/dL (32.0-36.0); Mean Corpuscular Hemoglobin 29.6 pg (27.0-31.0); Mean Platelet Volume 9.1 fL (7.4-10.4); Platelet Count 112 thou/uL (130-400); RBC Distribution Width 14.5 % (11.5-14.5); Red Blood Cell (RBC) Count 3.48 mill/uL (4.20-5.40)
[2019-04-07 06:38] LABS: AST (SGOT) 62 U/L (5-34); Bilirubin, Total 0.7 mg/dL (0.2-1.2)
[2019-04-07 06:41] LABS: Anion Gap 17 mmol/L (10-20); BUN (Urea Nitrogen) 30 mg/dL (9.8-20.1); Calc. Creatinine Clearance 46 mL/min (70-130); Calcium 8.5 mg/dL (7.8-10.44); Carbon Dioxide 16 mmol/L (23-31); Chloride 115 mmol/L (98-107); Estimated GFR-MDRD 32; Glucose 94 mg/dL (83-110); Potassium 4.7 mmol/L (3.5-5.1); Sodium 143 mmol/L (136-145)
[2019-04-07 07:16] LABS: Actual Bicarbonate (HCO3a) 20.7 mEq/L (22-28); Base Excess (BEa) -5.9 mEq/L (-2.0 to +3.0); CO2 Tension 45.4 mmHg (35.0-45.0); Calcium, Ionized 1.17 mmol/L (1.12-1.30); Carboxyhemoglobin (COHb) 0.7 gm% (0.0-3.0); Hemoglobin (Hb) 10.7 g/dL (12.0-16.0); O2 Tension (PaO2) 76.5 mmHg (> 70.0); Potassium - ABG Lab 4.47 mmol/L (3.70-5.30); pH, Arterial 7.28 (7.35-7.45)
[2019-04-07 07:18] LABS: Puncture Site RRA
[2019-04-07] MEDS: Carvedilol 6.25 MG TAB PER TUBE SCH (09:17)
[2019-04-07] MEDS: Amlodipine 10 MG TAB PO SCH (09:17)
[2019-04-07] MEDS: Enoxaparin Sodium 30 MG/0.3 ML SYRINGE SC SCH (09:18)
[2019-04-07] MEDS: Sodium Chloride 0.9% (PF) 10 ML VIAL FS PRN (09:18)
[2019-04-07] MEDS: Pantoprazole 40 MG VIAL IVP SCH (09:18)
[2019-04-07] MEDS ORDERED: Scopolamine 1.5 mg/72 hour Patch TD SCH (09:30)
--- NOTE | 2019-04-07 10:20 | PDOC.HOSPP ---
- Subjective Encounter Date: 04/07/19 Encounter Time: 10:19 Subjective: Ms. Olivas was seen today in follow-up of out of hospital cardiac arrest. She is unresponsive, and no significant changes reported overnight. - Objective Vital Signs & Weight: Vital Signs (12 hours) Temp Pulse Resp BP 04/07/19 09:17 82 149/104 H 04/07/19 08:00 97.5 F L 04/07/19 06:56 82 04/07/19 06:00 10 L 04/07/19 04:00 97.7 F 10 L 04/07/19 02:00 10 L 04/07/19 00:00 97.8 F 10 L Weight Admit Weight 246 lb 11.156 oz Weight 236 lb 12.423 oz Most Recent Monitor Data Heart Rate from ECG 81 NIBP 153/80 NIBP BP-Mean 104 Respiration from ECG 14 SpO2 99 I&O: 04/06/19 04/07/19 04/08/19 06:59 06:59 06:59 Intake Total 2616 790 Output Total 2062 2112 325 Balance 281 -6232 -325 Result Diagrams: 04/07/19 05:20 04/07/19 05:21 Additional Labs: Accuchecks 04/07/19 04/06/19 04/06/19 05:16 22:23 16:21 POC Glucose 95 100 112 H 04/06/19 10:18 POC Glucose 102 Hospitalist ROS - Medication Medications: Active Medications Generic Name Dose Route Start Last Admin Trade Name Freq PRN Reason Stop Dose Admin Amlodipine Besylate 10 mg 04/05/19 09:00 04/07/19 09:17 Norvasc PO 10 mg DAILY EH Administration Carvedilol 6.25 mg 04/03/19 17:00 04/07/19 09:17 Coreg PER TUBE 6.25 mg BID-WM EH Administration Enoxaparin Sodium 30 mg 04/02/19 09:00 04/07/19 09:18 Lovenox SC 30 mg 09 EH Administration Piperacillin Sod/Tazobactam 100 mls @ 200 mls/hr 04/02/19 02:00 04/07/19 09: 16 Sod 3.375 gm/ Sodium Chloride IVPB 100 mls 0200,0800,1400,2000 EH Administration Nitroglycerin/Dextrose 250 mls @ 0 mls/hr 04/02/19 02:30 04/04/19 22:51 Nitroglycerin 50 Mg/250 Ml Bot IVPB 250 mls INF EH Administration Protocol As Directed Nicardipine HCl 50 mg/ Sodium 250 mls @ 0 mls/hr 04/05/19 23:15 04/06/19 06: 38 Chloride IVPB 250 mls INF EH Administration Protocol Titrate Morphine Sulfate 2 mg 04/01/19 20:45 04/03/19 07:11 Morphine SLOW IVP 05/01/19 20:45 2 mg Q1H PRN Administration BREAKTHROUGH PAIN/Agitation Pantoprazole Sodium 40 mg 04/02/19 09:00 04/07/19 09:18 Protonix IVP 40 mg DAILY EH Administration Propofol 1,000 mg 04/01/19 20:45 04/03/19 00:11 Diprivan IV 05/01/19 20:45 1,000 mg INF PRN Administration TO ACHIEVE GOAL RASS Protocol Sodium Chloride 10 ml 04/02/19 08:21 04/07/19 09:18 Normal Saline Pf FS 10 ml PRN PRN Administration RECONSTITUTION - Exam Eye: PERRL, anicteric sclera Heart: RRR, no murmur, no gallops, no rubs, normal peripheral pulses Respiratory: CTAB (coarse breath sounds), no wheezes, no rales, no ronchi, normal chest expansion Gastrointestinal: soft, non-tender, non-distended, normal bowel sounds, no palpable masses, no hepatomegaly, no splenomegaly Extremities: no cyanosis, no clubbing, no edema Skin: normal turgor Hosp A/P (1) Acute anoxic encephalopathy Code(s): G93.1 - ANOXIC BRAIN DAMAGE, NOT ELSEWHERE CLASSIFIED Status: Acute (2) Cardiac arrest Code(s): I46.9 - CARDIAC ARREST, CAUSE UNSPECIFIED Status: Acute (3) Chronic systolic heart failure Code(s): I50.22 - CHRONIC SYSTOLIC (CONGESTIVE) HEART FAILURE Status: Chronic (4) Diabetes mellitus type 2 in obese Code(s): E11.69 - TYPE 2 DIABETES MELLITUS WITH OTHER SPECIFIED COMPLICATION; E66.9 - OBESITY, UNSPECIFIED Status: Chronic - Plan * Patient is s/p cardiac arrest. She has anoxic brain injury. Continue Vent support * DM- stable * CHF- cpmpensated * Anticipate Family meeting today at 3pm
[2019-04-07] MEDS ORDERED: Metoprolol Tartrate 5 MG/5 ML VIAL ONE (11:51)
[2019-04-07 13:24] VITALS: BMI 38.2
[2019-04-07 14:21] VITALS: BP 164/104
--- NOTE | 2019-04-07 14:56 | PRG ---
DATE OF SERVICE: 04/07/2019 SUBJECTIVE: Cinthya Olivas made no progress over the weekend. OBJECTIVE: VITAL SIGNS: Afebrile, heart rate is 80, blood pressure 150/83, respiratory rate 14. HEART: Regular rhythm. ABDOMEN: Soft. She has no family at the bedside. LABORATORY DATA: White count 7, platelets 112,000, sodium 143, potassium 4.7, chloride 115, carbon [id number], creatinine 1.88. IMPRESSION: Status post [id number] arrest with severe anoxic injury. PLAN: Continue supportive care until family decides on withdrawal vs trach. Job ID: [id number] MTDD
[2019-04-07] MEDS ORDERED: Carvedilol 6.25 MG TAB PER TUBE SCH (15:00)
--- NOTE | 2019-04-07 15:27 | PDOC.EVN ---
Event Note - Event Note Event Note: I had a meeting with the family, with her son and MPOA present. All questions answered. The son has decided to withdraw advanced life support, and pursue comfort measures and terminal extubation. Will add Morphine and Ativan as needed.
[2019-04-07] MEDS: Morphine 4 MG/ML VIAL SLOW IVP PRN ×2 (15:45→22:03)
[2019-04-07 22:29] VITALS: TEMP 98.7
--- NOTE | 2019-04-09 06:04 | DIS ---
DATE OF ADMISSION: 04/01/2019 DATE OF DISCHARGE: 04/07/2019 DATE OF : 04/07/2019. DIAGNOSES: 1. Yon-ei-qmjghypu cardiac arrest. 2. Chronic systolic heart failure. 3. Anoxic brain injury. 4. Chronic kidney disease stage 3. 5. Morbid obesity. 6. Gastroesophageal reflux disease. IMAGING DONE DURING THE HOSPITAL STAY: The patient had an echocardiogram showing an ejection fraction estimated at 35% to 40%. There was moderate mitral regurgitation present. The patient had a CT angiogram of the chest, which showed no central or segmental pulmonary embolism. CODE STATUS: DNAR. ALLERGIES: NO KNOWN DRUG ALLERGIES. HOSPITAL COURSE: Ms. Olivas was a 73-year-old female, who was out to dinner with her son when suddenly she became unresponsive, she collapsed. She was unconscious for quite some time before EMS arrived. It does not appear that any type of CPR was initiated before the EMS arrived. When she arrived to the hospital, she was intubated. She was found to be acidotic. During her hospital stay, she never regained any measurable neurological function. She had a negative gag reflex and would only withdraw to very severe pain. She remained hospitalized for several days, with no appreciable change in her neurological function. A family meeting was held with her son, Castro and I was present during the family meeting. The prognosis was discussed with her son. It was explained that she suffered severe anoxic brain injury and had no real hopes of recovering and for this reason, the son made the decision to withdraw ventilator support and to pursue comfort measures only. On 04/07/2019, the patient was taken off the ventilator and was placed on morphine and Ativan and she around 11:50 that evening with family at the bedside and it is suspected that she may have suffered an arrhythmia due to her systolic heart failure. She had been lost to follow up for some time and had never had a defibrillator placed and this is a possible etiology for the cardiac arrest. Job ID: [id number]
--- NOTE | 2019-04-11 10:07 | EEG ---
Referring Physician: Watson KULKARNI EEG # [id number] TEST TYPE: ROUTINE PORTABLE INPATIENT REPORT: AN EEG USING THE [employer]NATIONAL TEN-TWENTY SYSTEM OF ELECTRODE PLACEMENT WAS PERFORMED. The background activity is generally suppressed over both hemispheres. Some 6 hertz theta activity was seen. Some EMG artifact obscured portions of the record. Photic stimulation was unremarkable. No epileptiform features were noted. IMPRESSION: THIS IS AN ABNORMAL STUDY FOR THE FINDINGS OF DIFFUSE SLOWING AND SUPPRESSION CONSISTENT WITH A DIFFUSE ENCEPHALOPATHIC PROCESS. Warehouse Team Member: BONG Manager Technical Training: EEG.HORACIO MARKHAM
--- NOTE | 2019-04-12 14:51 | EKG ---
Test Reason : Blood Pressure : / mmHG Vent. Rate : 119 BPM Atrial Rate : 119 BPM P-R Int : 200 ms QRS Dur : 098 ms QT Int : 314 ms P-R-T Axes : 011 -31 149 degrees QTc Int : 441 ms Sinus tachycardia Possible Left atrial enlargement Left axis deviation Abnormal ECG ST depression V2-V6, I, II, III Confirmed by ARELY ARAMBULA M.D. ([id number]), sound editor COLIN GUTIERREZ ([id number]) on 04/12/2019 2:50:41 PM Referred By: Confirmed By:ARELY ARAMBULA M.D.
== END 2019-04-07 22:50 | disposition expired | DRG 291 ==
LOC: ERS 18:54 → CCU 20:26
PROVIDERS: ADMIT Hospitalist; ATTEND Hospitalist
PROC: 5A1955Z Respiratory Ventilation, Greater than 96 Consecutive Hours (ICD-10-PCS; principal; 2019-04-01)
PROC: 0BH17EZ Insertion of Endotracheal Airway into Trachea, Via Natural or Artificial Opening (ICD-10-PCS; 2019-04-01)
DX: I13.0 Hypertensive heart and chronic kidney disease with heart failure and stage 1 through stage 4 chronic kidney disease, or unspecified chronic kidney disease (principal); J69.0 Pneumonitis due to inhalation of food and vomit; J96.02 Acute respiratory failure with hypercapnia; J96.01 Acute respiratory failure with hypoxia; I50.43 Acute on chronic combined systolic (congestive) and diastolic (congestive) heart failure; G93.1 Anoxic brain damage, not elsewhere classified; E87.2 Acidosis; N17.9 Acute kidney failure, unspecified; I42.9 Cardiomyopathy, unspecified; Z66 Do not resuscitate; Z51.5 Encounter for palliative care; E66.01 Morbid (severe) obesity due to excess calories; N18.3 Chronic kidney disease, stage 3 (moderate); K21.9 Gastro-esophageal reflux disease without esophagitis; E87.5 Hyperkalemia; M10.9 Gout, unspecified; E11.65 Type 2 diabetes mellitus with hyperglycemia; G47.33 Obstructive sleep apnea (adult) (pediatric); R94.5 Abnormal results of liver function studies; I73.9 Peripheral vascular disease, unspecified; I87.2 Venous insufficiency (chronic) (peripheral); E11.22 Type 2 diabetes mellitus with diabetic chronic kidney disease; Z98.51 Tubal ligation status; Z98.49 Cataract extraction status, unspecified eye; Z79.82 Long term (current) use of aspirin; Z79.899 Other long term (current) drug therapy; Z91.14 Patient's other noncompliance with medication regimen; I46.9 Cardiac arrest, cause unspecified; Z68.34 Body mass index [BMI] 34.0-34.9, adult; L89.152 Pressure ulcer of sacral region, stage 2; L89.322 Pressure ulcer of left buttock, stage 2; I34.0 Nonrheumatic mitral (valve) insufficiency
CPT/HCPCS: 31500; 36415; 36416; 36556; 51702; 70450; 71045; 71275; 80048; 80053; 80202; 81003; 81015; 82247; 82550; 82805; 83036; 83735; 84100; 84145; 84450; 84460; 84484; 85025; 92950; 93005; 93306; 94002; 94003; 95816; 95819; 96365; 96366; 96367; 96368; 96375; 99292; C9113; J0171; J1650; J2060; J2270; J2543; J2704; J3010; J3370; J3490; J7050; Q9966